=== PATIENT | female | born 1955 | race Caucasian/White ===

== ENCOUNTER 2016-10-16 17:32 | Inpatient (IN) | payer OTHER ==
[~2016-10-16] VITALS: Ht 165.1 cm; Wt 60.6 kg
[2016-10-16 17:42] VITALS: BP 135/79; PULSE 121; RESP 18; O2SAT 98
[2016-10-16 19:16] LABS: Mean Corpuscular Hemoglobin 36.4 pg (27.0-35.0); Mean Corpuscular Volume 110.5 fL (81-100); Platelet Count 151 bil/L (150-400)
--- NOTE | 2016-10-16 19:29 | ED.REPORT ---
HPI-General Illness Date of Service Oct 16, 2016 ED Provider: Rob Cohn MD 61 year old female with hx of breast cancer s/p mastectomy with post surgical RUE lymphedema who presents to the ED due to abnormal labs. Two weeks ago the patient was seen at urgent care and was diagnosed with a sinus infection. She was started on antibiotics and has had progressively worsening SOB since. Pt was seen at urgent care today c/o multiple vague complaints including fatigue and SOB. Lab studies included D-dimer and BNP which were markedly elevated. Called at home and told to go to ER. She also complain of chest tightness with deep inspiration and calf edema. Additionally, she complains of intermittent purple discoloration of fingers and toes, not associated with cold weather. Pt recently started a job in a [employer], which reportedly is harder labor then her previous job, and had a 20 pound weight loss. Pt denies fever, chills, trauma, surgery, immobilization, estrogen replacement or recent malignancy. Nursing Notes Stated Complaint: CHEST PAIN Chief Complaint: Respiratory Distress Nursing Notes Reviewed: Yes Allergies: Coded Allergies: No Known Drug Allergies (Verified Allergy, Unknown, 10/16/16) General Time Seen by MD: 18:53 Chief Complaint Breathing problem Hx Obtained From: Patient, Other family... Sudden in Onset?: No Onset Occurred: More than a week ago... Symptom Duration: Since onset Severity: Current: No pain currently Associated with: Reports: Shortness of breath, Denies: Fever Pertinent Negative: Relieved by nothing Recent Healthcare: Recent doctor visit Past Medical History Past Medical History Breast cancer s/p mastectomy with post-surgical chronic RUE lymphedema, in remission. Past Surgical History Mastectomy Smoking History Never Smoker Social History Alcohol Use: Denies alcohol use Other Social History: Good social support Ambulatory Status Independent Review of Systems Full Review of Systems Constitutional: Reports: Fatigue, Recent wt loss, Denies: Chills, Fever Respiratory: Reports: Shortness of breath Cardiovascular: Reports: Chest pain, Edema GI: Denies: Diarrhea, Vomiting Complete sys rev & neg: except as marked. Physical Exam Vital Signs Vital Signs Date Time Temp Pulse Resp B/P Pulse Ox O2 Delivery O2 Flow Rate FiO2 10/16/16 22:18 111 17 132/71 94 Room Air 10/16/16 19:31 112 18 117/66 97 Room Air 10/16/16 17:42 37.5 121 18 135/79 98 Room Air Initial VS: Reviewed ENT: Mucous membranes moist, Conjunctiva normal, No scleral icterus Neck: Supple, Non-tender, Full range of motion General/Constitutional: Awake, Alert, Cooperative Head / Eyes: Atraumatic, Normocephalic, PERRL Mastecomy R Cardiovascular: Heart sounds NL, No gallop, No murmurs, No rubs, Cap refill not delayed, Peripheral circulation NL Heart Rate / Rhythm: Positive: Tachycardia Abdomen: Soft, Non-tender, No distention Upper Extremities Upper Extremity / MS: Neurologic intact, Vascular intact Fingertips warm, well perfused, pink, with good cap refill bilat. RUE lymphedema at baseline Lower Extremity / Pelvis / MS: Neurologic intact, Vascular intact Slightly mottled appearing feet. Good DP pulses, no lateralizing calf swelling, no palpable chords. Trace edema bilat midway up to knees. Skin: Warm, Dry Neurologic: Oriented X3, Speech NL, No motor deficits Psychiatric: Affect NL, Mood NL, Cognitive function NL Interpretation & Diagnostics Lab Results Interpretation Result Diagram: 10/16/16 19010/16/16 190 Test 10/16/16 19:05 White Blood Count 1.8th/mm3 (3.8-10.1) Red Blood Count 2.75mil/mm3 (3.90-5.20) Hemoglobin 10.0g/dL (12.0-15.6) Hematocrit 30.4% (35.0-46.0) Mean Corpuscular Volume 110.5fL (81-100) Mean Corpuscular Hemoglobin 36.4pg (27.0-35.0) Mean Corpuscular Hemoglobin Concent 32.9% (32.0-37.0) Red Cell Distribution Width 14.4% (12.3-15.4) Platelet Count 151bil/L (150-400) Neutrophils (%) (Auto) 71% (40-74) Lymphocytes (%) (Auto) 25% (14-46) Monocytes (%) (Auto) 4% (4-12) Eosinophils (%) (Auto) 0% (0-5) Basophils (%) (Auto) 0% (0-3) Reticulocyte Count,Calculated 3.3% (0.6-2.6) Prothrombin Time 12.0sec (8.1-12.5) Prothromb Time International Ratio 1.12ratio Sodium Level 134mEq/L (134-144) Potassium Level 4.2mEq/L (3.5-5.2) Chloride Level 96mEq/L (97-108) Carbon Dioxide Level 20mmol/L (18-29) Blood Urea Nitrogen 15mg/dL (8-27) Creatinine 0.76mg/dL (0.57-1.00) Estimat Glomerular Filtration Rate 110mL/min (>59) Glucose Level 91mg/dL (60-99) Calcium Level 9.3mg/dL (8.5-10.1) Magnesium Level 1.8mg/dL (1.6-2.6) Total Bilirubin 0.7mg/dL (0.0-1.2) Aspartate Amino Transf (AST/SGOT) 203U/L (0-50) Alanine Aminotransferase (ALT/SGPT) 143U/L (0-32) Alkaline Phosphatase 115U/L (25-165) Troponin T < 0.010ug/L (0.0-0.011) Pro-B-Type Natriuretic Peptide 686.2pg/mL (0-287) Total Protein 6.2g/dL (6.4-8.4) Albumin 2.7g/dL (3.4-5.0) General Lab Results Interp 1: Labs reviewed ECG Interpretation ECG Interpretation: No ST segment changes, no T wave abnormalities. No prior for comparison. Time: 18:58 Interpreted by: ED physician Normal ECG Interpretation: Normal axis, Normal intervals Rhythm / Conduction: Tachycardia (rate of 115) CT Head Interpretation IMPRESSION: 1. Lytic lesions in the calvarium consistent with osseous metastatic disease. 2. No definite intracranial hemorrhage, mass or mass effect. If there is persistent clinical suspicion for intracranial metastatic disease, recommend further evaluation with a contrast enhanced brain MRI. Dictated by: Michael Garnica M.D. on 10/16/2016 at 21:38 Study: Head CT no contrast Interpretation / Wet Read by: Interpret - Radiologist CT Chest Interpretation IMPRESSION: 1. Multiple bilateral pulmonary emboli involving lobar pulmonary arteries in the right upper, middle, and lower lobes as well as the left lower lobe with extension into segmental and subsegmental branches. No definite evidence of right heart strain. 2. Findings consistent with diffuse metastatic disease including mediastinal lymphadenopathy, multiple hepatic mass lesions, splenic mass, mesenteric lymphadenopathy, and sclerotic bone lesions. 3. Compression fractures of T7 and T10 vertebral bodies as described without associated spinal canal narrowing. The fractures are likely pathologic secondary to metastatic disease. 4. Small amount of ascites within the visualized abdomen. Findings discussed with Dr. Cohn on 10/16/16 at 8:55 PM. Dictated by: Michael Garnica M.D. on 10/16/2016 at 21:05 Study type: CT pulm angiogram Interpretation / Wet Read by: Interpret - Radiologist, Discussed w radiologist Re-Eval/Medical Decision Med Decision/Clinical Course In summary, the patient is a 61-year-old female with remote history of right breast cancer status post mastectomy who presents to the emergency department with several weeks of gradually worsening shortness of breath and fatigue. She was apparently seen previously in urgent care at which time d-dimer and BNP were ordered. These tests resulted markedly elevated and she was called at home today and told to come to the emergency department. Upon arrival she is tachycardic in the 120s and tachypnea. She appears cachectic and generally well-appearing though she is speaking in full sentences. She is accompanied by family who report that with any exertion that she develops cyanotic appearance of her hands, feet and lips. ECG sinus tachy with rate 115, otherwise normal. CT chest angio: IMPRESSION: 1. Multiple bilateral pulmonary emboli involving lobar pulmonary arteries in the right upper, middle, and lower lobes as well as the left lower lobe with extension into segmental and subsegmental branches. No definite evidence of right heart strain. 2. Findings consistent with diffuse metastatic disease including mediastinal lymphadenopathy, multiple hepatic mass lesions, splenic mass, mesenteric lymphadenopathy, and sclerotic bone lesions. 3. Compression fractures of T7 and T10 vertebral bodies as described without associated spinal canal narrowing. The fractures are likely pathologic secondary to metastatic disease. 4. Small amount of ascites within the visualized abdomen. CT head: 1. Lytic lesions in the calvarium consistent with osseous metastatic disease. 2. No definite intracranial hemorrhage, mass or mass effect. If there is persistent clinical suspicion for intracranial metastatic disease, recommend further evaluation with a contrast enhanced brain MRI. Laboratory studies notable as below: Pediazole 1.8 Hematocrit 30.4 Troponin negative Elevated transaminases BNP 686 At this time, I feel that the patient requires admission to the ICU and catheterization for significant bilateral pulmonary emboli. The patient is not hemodynamically unstable and I do not feel that TPA is immediately indicated. Moreover the patient is at very high risk for bleeding complications given her extensive metastatic disease. Prior to initiating heparinization I obtained head CT did not demonstrate any evidence of intracranial mass lesion or bleeding. I discussed heparinization with Rod Carrero neurosurgeon at [facility] who felt that this was an appropriate course of action the patient's risk for acute cranial hemorrhage is relatively low. I discussed risk of bleeding with the patient who wished to proceed with heparinization after reviewing the risks and benefits. Low molecular weight heparin was initiated. The patient was admitted to the ICU for further management. Time of Eval: 21:02 Re-Evaluation/Progress Note: Pt updated of imaging and plan for admission. Pt understands and agrees with plan. Time of Eval: 22:35 Re-Evaluation/Progress Note: Pt remains tachycardic, updated of plan to start Lovenox. She understands and agrees with plan. All questions addressed. Consultation #1: Referral / Consult Name: Vinh Jones MD Consulted With: Hospitalist Call Returned at: 21:46 Note: Would like consult with neurosurgeon. Consultation #2: Call Returned at: 10:23 Note: Discussed case with Dr. Rod Johnson, neurosurgery, from [facility]. He agrees with plan for Heparin. Consultation #3: Referral / Consult Name: Vinh Jones MD Consulted With: Hospitalist Call Returned at: 10:32 Composition Roll Maker And Cutter: Will see patient, Agrees with eval, Agrees with plan, Accepts admit Note: Would like Lovenox. Counseled Regarding: Diagnosis, Lab results, Need for admission Discharge & Departure Primary Impression: Pancytopenia Additional Impressions: Pulmonary embolism Pulmonary embolism type: other Chronicity: acute Acute cor pulmonale presence: without acute cor pulmonale Qualified Code: I26.99 - Other pulmonary embolism without acute cor pulmonale Metastatic cancer Hypoxia Leukopenia Leukopenia type: unspecified Qualified Code: D72.819 - Decreased white blood cell count, unspecified Elevated transaminase level Tachycardia Dyspnea Dyspnea type: unspecified Qualified Code: R06.00 - Dyspnea, unspecified Anemia Anemia type: unspecified type Qualified Code: D64.9 - Anemia, unspecified Disposition: ADMITTED TO HOSPITAL Discharge Condition All VS Reviewed: Yes Referrals: Fani Flanagan (PCP) Crit Care Except Billable Proc Time Spent: 135-164 minutes Services Performed: Patient management by me, Time spent at bedside, Reviewing test results, Reviewing imaging, Discussing patient care, Documentation in record, Time with fam/surrogate Scribe Attestation Portions of this note were transcribed by Sherita Ruiz. I, (Dr. Cohn) personally performed the history, physical exam and medical decision-making; I reviewed and confirmed the accuracy of the information in the transcribed note. Signed by: Sherita Ruiz. 10/16/2016, [id number] copies to: Fani Flanagan Beck O MD Oct 16, 2016 19:29 Sherita Ruiz Oct 16, 2016 19:34
[2016-10-16 19:31] VITALS: BP 117/66; PULSE 112; RESP 18; O2SAT 97
[2016-10-16 19:39] LABS: INR 1.12 ratio
[2016-10-16 19:42] LABS: BASOPHILS % (AUTO) 0 % (0-3); EOSINOPHILS % (AUTO) 0 % (0-5); MONOCYTES % (AUTO) 4 % (4-12); NEUTROPHILS % (AUTO) 71 % (40-74)
[2016-10-16 19:49] LABS: TROPONIN T < 0.010 ug/L (0.0-0.011)
[2016-10-16 19:57] LABS: Magnesium 1.8 mg/dL (1.6-2.6)
--- NOTE | 2016-10-16 21:07 | DRSVH ---
PROCEDURE: CT ANGIO CHEST PULMONARY EMBOLISM ([id number]) INDICATIONS: Chest pain and elevated d-dimer. TECHNIQUE: After the administration of intravenous contrast, 2 mm thick sections acquired from the pulmonary api justine to the posterior costophrenic angles. 3-dimensional maximum intensity projection (MIP) coronal a nd sagittal reformats were then acquired through the thorax. For radiation dose reduction, the follo wing was used: automated exposure control, adjustment of mA and/or kV according to patient size. COMPARISON: [facility], CT, CT ABD PELVIS W&WO CON IVP, 10/20/2015, 15:02. FINDINGS: Image quality: Excellent. 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 There is extension into segmental and subsegmental branches. The main pul monary artery is at the upper limits of normal in size. No evidence of leftward deviation of the int erventricular septum to suggest right heart strain. Lungs and pleura: There is scarring in the right apex suggestive of post radiation changes. There is minimal dependent atelectasis. No pleural effusions or pneumothorax. Central and peripheral airway s are patent. Mediastinum: Heart size is normal, without pericardial effusion. Thoracic aorta is normal in calibe r and enhancement. There multiple enlarged mediastinal lymph nodes including a subcarinal node measu ring up to 1.4 cm in short axis. Esophagus is normal in caliber, without hiatal hernia. Bones and chest wall: There are scattered sclerotic lesions within the thoracic spine consistent wit h metastatic disease including within the T7 vertebral body where there is an associated anterior com pression fracture with approximately 45% loss of height. At the T10 level, there is also a mild supe rior endplate compression fracture with approximately 25% loss of height. No retropulsed fragments i n the spinal canal or associated high-grade spinal canal narrowing. Thyroid gland is partially visua lized. No axillary or supraclavicular adenopathy. There are multiple surgical clips in the right ax illa. There are postsurgical changes status post right mastectomy. Abdomen: Visualized upper abdomen demonstrates heterogeneous appearance of the liver with numerous c onfluent mass lesions consistent with metastatic disease. These appear to involve the majority of th e visualized liver. There is also a lobulated mass within the spleen measuring up to 6.4 x 4.2 cm in transverse dimension. There is confluent mesenteric lymphadenopathy within the visualized upper abd omen. These obscure the left adrenal gland. There is ascites with a small amount of perihepatic flu id in the visualized abdomen. IMPRESSION: 1. Multiple bilateral pulmonary emboli involving lobar pulmonary arteries in the right upper, middle , and lower lobes as well as the left lower lobe with extension into segmental and subsegmental branc hes. No definite evidence of right heart strain. 2. Findings consistent with diffuse metastatic disease including mediastinal lymphadenopathy, multip le hepatic mass lesions, splenic mass, mesenteric lymphadenopathy, and sclerotic bone lesions. 3. Compression fractures of T7 and T10 vertebral bodies as described without associated spinal canal narrowing. The fractures are likely pathologic secondary to metastatic disease. 4. Small amount of ascites within the visualized abdomen. Findings discussed with Dr. Cohn on 10/16/16 at 8:55 PM. Dictated by: Michael Garnica M.D. on 10/16/2016 at 21:05 Approved by: Michael Garnica M.D. on 10/16/2016 at 21:05
--- NOTE | 2016-10-16 21:40 | DRSVH ---
PROCEDURE: CT BRAIN WITHOUT CONTRAST ([id number]) INDICATIONS: History of pulmonary embolism and metastatic disease on chest CT. Rule out intracranial mass. TECHNIQUE: Noncontrast 4.5 mm thick angled axial sections acquired from the foramen magnum to the vertex, with c oronal reformats. COMPARISON: None. FINDINGS: Image quality: Excellent. CSF spaces: Basal cisterns are patent. No extra-axial fluid collections. There is mild cerebral vo lume loss with prominence of the ventricles and sulci. Brain: No definite intracranial hemorrhage. No mass effect. Owusu-white matter interface is preserv ed. There is mild hyperattenuation of the vessels secondary to recent intravenous contrast from ches t CT. Skull and face: There are multiple lytic lesions demonstrated within the calvarium consistent with me tastatic disease. These include a right frontal bone lytic irregular lesion measuring up to 1.9 cm. Sinuses: Visualized sinuses and mastoids are clear. IMPRESSION: 1. Lytic lesions in the calvarium consistent with osseous metastatic disease. 2. No definite intracranial hemorrhage, mass or mass effect. If there is persistent clinical suspic ion for intracranial metastatic disease, recommend further evaluation with a contrast enhanced brain MRI. Dictated by: Michael Garnica M.D. on 10/16/2016 at 21:38 Approved by: Michael Garnica M.D. on 10/16/2016 at 21:38
[2016-10-16 22:18] VITALS: BP 132/71; PULSE 111; RESP 17; O2SAT 94
[2016-10-16] MEDS ORDERED: Polyethylene Glycol (PEG) 17 Gm Powder PO PRN (23:05)
[2016-10-16] MEDS ORDERED: Alum-Mag Hydrox-Simeth 30 mL Suspension PO PRN (23:05)
[2016-10-17] VITALS (8 sets, daily range): BP systolic 123–137; BP diastolic 67–91; PULSE 94–111; RESP 14–18; O2SAT 94–99
[2016-10-17] MEDS: 0.9% Sodium Chloride 1,000 ML IV SCH ×3 (00:37→19:05)
[2016-10-17 01:22] LABS: Unsaturated Iron Binding 167.6 ug/dL
[2016-10-17] MEDS ORDERED: FLUO10CA30 PO (01:47)
[2016-10-17] MEDS ORDERED: AMIT10TA6 PO (01:47)
--- NOTE | 2016-10-17 02:36 | PCM.HPMED ---
Subjective Date of Service Oct 16, 2016 Primary Provider: Admitting Physician: Primary Care Physician: Fani Flanagan Attending Physician: Chief Complaint: Elevated D dimer with respiratory symptoms History of Present Illness: Sugar Thompson is a 61 year old female with History of breast cancer s/p mastectomy with post surgical RUE lymphedema who presents to [facility] Emergency department due to respiratory symptoms with elevated D dimer at Urgent Care clinic Two weeks ago the patient was seen at urgent care and was diagnosed with a sinus infection. She was started on antibiotics (Augmentin) and has had progressively worsening shortness of breathe since. Exacerbated with exertion and lifting heavy stuff. Pt was seen at urgent care today c/o multiple vague complaints including fatigue and dyspnea. Lab studies included D-dimer and BNP which were markedly elevated. Called at home and told to go to ER. She also complain of chest tightness with deep inspiration and calf edema. Additionally, she complains of intermittent purple discoloration of fingers and toes, not associated with cold weather. Pt recently started a job in a [employer], which reportedly is harder labor then her previous job, and had a 20 pound weight loss. Pt denies fever, chills, trauma, surgery, immobilization, estrogen replacement. Case discussed with Dr Cohn. Patient had CT confirming Pulmonary embolism. Imaging also confirmed metastatic cancer, new finding as the patient thought she was cancer free from her Breast Cancer. Review of Systems: Pertinent positives as noted in HPI. All other systems were reviewed and are negative Allergies Coded Allergies: No Known Drug Allergies (Verified Allergy, Unknown, 10/16/16) Home Medications From [facility], not yet confirmed Sugar Thompson [id number] 1955 10/16/2016 12:20 PM 10/04 amitriptyline 10 mg tablet take 1 tablet by oral route once before bedtime Augmentin 875 mg-125 mg tablet take 1 tab every 12 hours with food Fosamax take 1 tablet by oral route once a week in the morning, at least 30 min before first food, beverage, or medication of day Prozac 20 mg capsule take 1 tablet by oral route every day in the morning PMH Breast Cancer stage III-A with seven of eighteen nodes positive, complete chemotherapy with Adriamycin/Cytoxan Recent Sinusitis Surgical History Right modified radical mastectomy Family History NO history of clotting disease in family Social History Hx Alcohol Use: No Hx Substance Use: No Hx Tobacco Use: No Smoking Status: Never Smoker Living Arrangement: with Family Exam Vital Signs Vital Sign - Last Date Time Temp Pulse Resp B/P Pulse Ox O2 Delivery O2 Flow Rate FiO2 10/16/16 22:18 111 17 132/71 94 Room Air 10/16/16 17:42 37.5 Exam General: Alert, Oriented X3, Cooperative, No acute Distress Eyes: PERRLA, Scleral Anicteric Mouth: Mouth Normal, Mucous Membranes Moist/[place] Neck: Supple, no Thyromegaly, trachea central. Chest & Lungs: Clear to auscultation & percussion, No adventitious breath sounds, no crackles, no wheeze Cardiovascular: Normal S1, Normal S2, No Murmurs/Rubs/Gallops, Regular Rate/ Rhythm, (No JVD, no peripheral edema) Pulses: Radial (present and equal), Dorsalis Pedi (present and equal) Abdomen: Soft, Non-tender, Non-distended, Normoactive bowel tones. Musculoskeletal: Unremarkable. Normal range of motion, no swollen or erythematous joints Extremities: No edema, no cyanosis, no clubbing. Right arm bigger than left Skin: No rashes. Warm and dry, no erythematous areas Neurological: Grossly neurologically intact, Normal Speech, Sensation Intact Lymphatic: Lymph nodes Cervical and Axillary not palpable. Lab and Diagnostics Labs Laboratory Tests Test 10/16/16 19:05 White Blood Count 1.8th/mm3 (3.8-10.1) Red Blood Count 2.75mil/mm3 (3.90-5.20) Hemoglobin 10.0g/dL (12.0-15.6) Hematocrit 30.4% (35.0-46.0) Mean Corpuscular Volume 110.5fL (81-100) Mean Corpuscular Hemoglobin 36.4pg (27.0-35.0) Mean Corpuscular Hemoglobin Concent 32.9% (32.0-37.0) Red Cell Distribution Width 14.4% (12.3-15.4) Platelet Count 151bil/L (150-400) Neutrophils (%) (Auto) 71% (40-74) Lymphocytes (%) (Auto) 25% (14-46) Monocytes (%) (Auto) 4% (4-12) Eosinophils (%) (Auto) 0% (0-5) Basophils (%) (Auto) 0% (0-3) Prothrombin Time 12.0sec (8.1-12.5) Prothromb Time International Ratio 1.12ratio Sodium Level 134mEq/L (134-144) Potassium Level 4.2mEq/L (3.5-5.2) Chloride Level 96mEq/L (97-108) Carbon Dioxide Level 20mmol/L (18-29) Blood Urea Nitrogen 15mg/dL (8-27) Creatinine 0.76mg/dL (0.57-1.00) Estimat Glomerular Filtration Rate 110mL/min (>59) Glucose Level 91mg/dL (60-99) Calcium Level 9.3mg/dL (8.5-10.1) Magnesium Level 1.8mg/dL (1.6-2.6) Total Bilirubin 0.7mg/dL (0.0-1.2) Aspartate Amino Transf (AST/SGOT) 203U/L (0-50) Alanine Aminotransferase (ALT/SGPT) 143U/L (0-32) Alkaline Phosphatase 115U/L (25-165) Troponin T < 0.010ug/L (0.0-0.011) Pro-B-Type Natriuretic Peptide 686.2pg/mL (0-287) Total Protein 6.2g/dL (6.4-8.4) Albumin 2.7g/dL (3.4-5.0) Result Diagram: 10/16/16190410/16/161904 X-Rays, CTs and MRIs CT BRAIN WITHOUT CONTRAST 10/16/16 IMPRESSION: 1. Lytic lesions in the calvarium consistent with osseous metastatic disease. 2. No definite intracranial hemorrhage, mass or mass effect. If there is persistent clinical suspicion for intracranial metastatic disease, recommend further evaluation with a contrast enhanced brain MRI. Dictated by: Michael Garnica M.D. on 10/16/2016 at 21:38 Approved by: Michael Garnica M.D. on 10/16/2016 at 21:38 CT ANGIO CHEST PULMONARY EMBOLISM 10/16/16 IMPRESSION: 1. Multiple bilateral pulmonary emboli involving lobar pulmonary arteries in the right upper, middle, and lower lobes as well as the left lower lobe with extension into segmental and subsegmental branches. No definite evidence of right heart strain. 2. Findings consistent with diffuse metastatic disease including mediastinal lymphadenopathy, multiple hepatic mass lesions, splenic mass, mesenteric lymphadenopathy, and sclerotic bone lesions. 3. Compression fractures of T7 and T10 vertebral bodies as described without associated spinal canal narrowing. The fractures are likely pathologic secondary to metastatic disease. 4. Small amount of ascites within the visualized abdomen. Findings discussed with Dr. Cohn on 10/16/16 at 8:55 PM. Dictated by: Michael Garnica M.D. on 10/16/2016 at 21:05 Approved by: Michael Garnica M.D. on 10/16/2016 at 21:05 Assessment & Plan Sugar Thompson is a 61 year old female with History of breast cancer s/p mastectomy with post surgical RUE lymphedema who presents to [facility] Emergency department due to respiratory symptoms with elevated D dimer at Urgent Care clinic 1. Multiple bilateral pulmonary emboli involving lobar pulmonary arteries in the right upper, middle, and lower lobes as well as the left lower lobe with extension into segmental and subsegmental branches. Present on admission NO indications for TPA and at least no right heart strain on CT scan. Likely cause if related to Malignancy with no recent travels, surgeries or contraceptives. - Lovenox therapeutic (preferred anticoagulation for Pulmonary embolism with Malignancy) - Oncology consultation will be pursued in the morning - monitor closely for any bleeding complications from Lovenox 2. Macrocytic anemia with Leukopenia. Present on admission Likely acute issues but not confirmed with no prior labs for comparison - monitor closely for infections - monitor closely for bleeding - checking Iron studies as well as Vitamin B and Folate levels 3. Elevated transaminitis. Present on admission Likely due to metastatic disease - will order Hepatitis panel 4. Metastatic Breast Cancer. Present on admission Unfortunate that the patient has ongoing breast cancer - Oncology will be following and giving recommendation 5. Depression - continue Prozac - Acetaminophen as needed for mild pain/fever/headache - Bowel regimen as needed - Antiemetic as needed Patient admitted under inpatient status with expected length of stay > 2 midnights for severity of present symptoms, complexities of treatment plan and risk for adverse event . Resuscitation Status: CPR: Attempt Resuscitation Fuimaono,Vinh MD Oct 16, 2016 23:50
--- NOTE | 2016-10-17 04:19 | NUR ---
Admit Admitted from ER for SOB, Bilateral PE, RUE lymph edema rt tr mastectomy. denies pain, pt interview complete , conference w hospitalist , agreed to general diet until morning. A&O x3 , SHEIKH, using call light appropriately, have [place] padded brace on IV site , left AC to prevent occluding. Pt doesn't like needles, Room Air, NS @ 100. Q2 neuro checks, Tele SR- S-Tach/ Addendum: 10/17/16 at 0434 by MILAGRO CHOWDHURY RN Med Req completed as far as possible with Pt recollection, pt states she only takes 2 medications at home .
--- NOTE | 2016-10-17 09:19 | NUR ---
Social Work Note: Screen Note Data& Assessment: EMR reviewed. Sugar Deng is a 61 year old female admitted on 10/17/2016 for PE metastatic CA pancytopnia. Oncology consult ordered for today per H&P. Pt has [employer] out of state insurance coverage and sees Fani PARISI for primary care. Pt lives in [place] with her family and is independent at baseline. Pt is currently SBA in her room. SW to continue to follow for discharge planning needs. Plan: Anticipated discharge home via POV when medically ready. SW to continue to follow for discharge planning needs. HARISH Barker
[2016-10-17] MEDS ORDERED: 0.9% Sodium Chloride 1,000 ML IV ONE (13:45)
--- NOTE | 2016-10-17 16:27 | DRSVH ---
PROCEDURE: CT ABDOMEN AND PELVIS WITH CONTRAST ([id number]) INDICATIONS: find primary CA, best site for Bx TECHNIQUE: After the administration of oral and intravenous contrast, 5 mm thick sections acquired from the diap hragms to the symphysis. 5 mm thick coronal and sagittal reformats were performed. For radiation do se reduction, the following was used: automated exposure control, adjustment of mA and/or kV accordi ng to patient size. COMPARISON: [facility], CT, CT ANGIO CHEST PE, 10/16/2016, 20:18. [facility] , CT, CT ABD PELVIS W&WO CON IVP, 10/20/2015, 15:02. FINDINGS: Image quality: Excellent. ABDOMEN: Lung bases: Lung bases are clear. Heart size is normal. Solid organs: Liver is enlarged, measuring 20.7 cm craniocaudal. Hepatic contour is nodular, indicati ng cirrhosis. There is a severe degree of multifocal patchy low density within the right and left hep atic lobes, as seen by recent CT angiography of the chest examination. There appears to be preservati on of normal vascular architecture within portions of the ill-defined hepatic hypodensity, suggestive of fatty infiltration or infarction. There is enlargement of the spleen, which measures 14.7 cm cran iocaudal. There is a focal wedge-shaped low-density focus within the posterior or medial spleen measu ring 62 mm. Gallbladder wall is thickened, and there are multiple calculi within its lumen.. Biliary system is non-dilated. Pancreas enhances normally. No adrenal nodules. Kidneys are normal in size and enhancement, without hydronephrosis. Peritoneum and bowel: Stomach, small bowel, and colon loops are normal in caliber and wall thickness . No pneumoperitoneum. There is a small amount of ascites. Nodes and vessels: Mildly prominent retroperitoneal lymph nodes are present, which are increased in p rominence. The largest of these is in the left anterior preaortic location and 12 mm short axis. Aort a is within normal limits. There is severe narrowing of the intrahepatic IVC. Recanalized umbilical v ein is present. Miscellaneous: No ventral hernias. PELVIS: Genitourinary: Bladder wall thickness is normal. Miscellaneous: No inguinal hernias or adenopathy. Bones: Multiple ill-defined lucencies within the thoracolumbar spine, and bilateral posterior leg win gs are present, as before. There is a new mild L3 compression fracture. There is increased lucency in volving the L3 vertebral body, measuring roughly 22 mm. Mild chronic T10 compression fracture. Modera te curvature of the spine at the thoracolumbar junction. Slight increase in 9 mm diameter sclerotic d ensity within the left posterior acetabulum. IMPRESSION: 1. Cirrhosis, and portal hypertension, associated with splenomegaly, and small amount of ascites. 2. Moderate sized splenic infarct. 3. The multifocal ill-defined hepatic hypodense lesions are not definitively malignant, and may repre sent an atypical appearance of fatty infiltration, and/or hepatic infarcts. Liver protocol MRI with a nd without intravenous contrast may be helpful for further assessment. 4. Cholelithiasis. Thickened gallbladder wall is present, which may indicate cholecystitis versus seq uelae secondary to cirrhosis/portal hypertension. 5. Multifocal lucencies within the lumbar sacral spine and pelvis, and left posterior acetabular scle rotic density. New, mild L3 wedging associated with L3 lucent lesion. Findings could indicate bony me tastatic disease; whole-body bone scan recommended for further assessment. 6. Increased, mild retroperitoneal lymph node enlargement; findings could be reactive (e.g., secondar y to cirrhosis), or secondary to early metastatic disease; followup CT imaging is recommended in 1-3 months, as clinically warranted. 7. Findings and recommendations discussed with Dr. Pemberton on 10.17.16 at 1615 hrs. Dictated by: Manuel Pate M.D. on 10/17/2016 at 16:25 Approved by: Manuel Pate M.D. on 10/17/2016 at 16:25
--- NOTE | 2016-10-17 18:41 | PCM.PNMED ---
Subjective Date of Service Oct 17, 2016 Subjective 59-year-old woman with remote history of breast cancer and incomplete follow-up presents with pulmonary embolism and various radiologic lesions. Her presenting symptom was some chronic weakness with some dyspnea on exertion. Initially treated for sinusitis with 2 courses of antibiotics. A d-dimer was checked and she was referred to the emergency department. She states that she continues to feel weak, but no respiratory complaint. She was treated for sinusitis but has no focal sinus complaints. The healing lip ulcer is not painful. Denies focal bone pain. Exam Vital Signs Vital Sign - Last Date Time Temp Pulse Resp B/P Pulse Ox O2 Delivery O2 Flow Rate FiO2 10/17/16 16:41 37.0 100 18 137/88 99 Room Air Intake and Output 10/16/16 10/16/16 10/17/16 Cumulative From/Thru 14:59 22:59 06:59 10/16/16 17:42 - 10/17/16 06:06 Intake Total 715 ml 715 ml Output Total 500 ml 500 ml Balance 215 ml 215 ml Intake Oral 200 ml 200 ml IV Total 515 ml 515 ml Output Urine Total 500 ml 500 ml # Voids 1 1 Exam General: Generally healthy-appearing woman no acute distress HEENT: sclerae anicteric, oral mucosa moist, dry scab of right upper lip; no oral aphthous ulcers, no vesicles Neck: no JVD Chest: clear to auscultation Cardiac: S1S2, no murmur Abdomen: BS normal, non-tender, no hepatomegaly Extremities: No asymmetric swelling or edema Neuro: A&O, cranial nerves symmetric, motor strength 5/5, coordination normal IVs and Medications Medications Reviewed: Medications were reviewed in detail Lab and Diagnostics Result Diagram: 10/16/16190410/16/161904 X-Rays, CTs and MRIs CT BRAIN WITHOUT CONTRAST 10/16/16 IMPRESSION: 1. Lytic lesions in the calvarium consistent with osseous metastatic disease. 2. No definite intracranial hemorrhage, mass or mass effect. If there is persistent clinical suspicion for intracranial metastatic disease, recommend further evaluation with a contrast enhanced brain MRI. Dictated by: Michael Garnica M.D. on 10/16/2016 at 21:38 Approved by: Michael Garnica M.D. on 10/16/2016 at 21:38 CT ANGIO CHEST PULMONARY EMBOLISM 10/16/16 IMPRESSION: 1. Multiple bilateral pulmonary emboli involving lobar pulmonary arteries in the right upper, middle, and lower lobes as well as the left lower lobe with extension into segmental and subsegmental branches. No definite evidence of right heart strain. 2. Findings consistent with diffuse metastatic disease including mediastinal lymphadenopathy, multiple hepatic mass lesions, splenic mass, mesenteric lymphadenopathy, and sclerotic bone lesions. 3. Compression fractures of T7 and T10 vertebral bodies as described without associated spinal canal narrowing. The fractures are likely pathologic secondary to metastatic disease. 4. Small amount of ascites within the visualized abdomen. Findings discussed with Dr. Cohn on 10/16/16 at 8:55 PM. Dictated by: Michael Garnica M.D. on 10/16/2016 at 21:05 Approved by: Michael Garnica M.D. on 10/16/2016 at 21:05 PROCEDURE: CT ABDOMEN AND PELVIS WITH CONTRAST ([id number]) FINDINGS: Image quality: Excellent. ABDOMEN: Lung bases: Lung bases are clear. Heart size is normal. Solid organs: Liver is enlarged, measuring 20.7 cm craniocaudal. Hepatic contour is nodular, indicating cirrhosis. There is a severe degree of multifocal patchy low density within the right and left hepatic lobes, as seen by recent CT angiography of the chest examination. There appears to be preservation of normal vascular architecture within portions of the ill-defined hepatic hypodensity, suggestive of fatty infiltration or infarction. There is enlargement of the spleen, which measures 14.7 cm craniocaudal. There is a focal wedge-shaped low-density focus within the posterior or medial spleen measuring 62 mm. Gallbladder wall is thickened, and there are multiple calculi within its lumen.. Biliary system is non-dilated. Pancreas enhances normally. No adrenal nodules. Kidneys are normal in size and enhancement, without hydronephrosis. Peritoneum and bowel: Stomach, small bowel, and colon loops are normal in caliber and wall thickness. No pneumoperitoneum. There is a small amount of ascites. Nodes and vessels: Mildly prominent retroperitoneal lymph nodes are present, which are increased in prominence. The largest of these is in the left anterior preaortic location and 12 mm short axis. Aorta is within normal limits. There is severe narrowing of the intrahepatic IVC. Recanalized umbilical vein is present. Bones: Multiple ill-defined lucencies within the thoracolumbar spine, and bilateral posterior leg wings are present, as before. There is a new mild L3 compression fracture. There is increased lucency involving the L3 vertebral body , measuring roughly 22 mm. Mild chronic T10 compression fracture. Moderate curvature of the spine at the thoracolumbar junction. Slight increase in 9 mm diameter sclerotic density within the left posterior acetabulum. IMPRESSION: 1. Cirrhosis, and portal hypertension, associated with splenomegaly, and small amount of ascites. 2. Moderate sized splenic infarct. 3. The multifocal ill-defined hepatic hypodense lesions are not definitively malignant, and may represent an atypical appearance of fatty infiltration, and/ or hepatic infarcts. Liver protocol MRI with and without intravenous contrast may be helpful for further assessment. 4. Cholelithiasis. Thickened gallbladder wall is present, which may indicate cholecystitis versus sequelae secondary to cirrhosis/portal hypertension. 5. Multifocal lucencies within the lumbar sacral spine and pelvis, and left posterior acetabular sclerotic density. New, mild L3 wedging associated with L3 lucent lesion. Findings could indicate bony metastatic disease; whole-body bone scan recommended for further assessment. 6. Increased, mild retroperitoneal lymph node enlargement; findings could be reactive (e.g., secondary to cirrhosis), or secondary to early metastatic disease; followup CT imaging is recommended in 1-3 months, as clinically warranted. 7. Findings and recommendations discussed with Dr. Pemberton on 10.17.16 at 1615 hrs. Dictated by: Manuel Pate M.D. on 10/17/2016 at 16:25 . Assessment & Plan 61-year-old woman with history of breast cancer 12 years ago prevent presents with weakness and dyspnea on exertion noted to have pulmonary embolism. #. Multiple bilateral pulmonary emboli involving lobar pulmonary arteries in the right upper, middle, and lower lobes as well as the left lower lobe with extension into segmental and subsegmental branches. Present on admission. NO indications for TPA and at least no right heart strain on CT scan. Likely cause is related to Malignancy, with no recent travels, surgeries or contraceptives. No family history of thrombophilia. - Lovenox therapeutic (preferred anticoagulation for Pulmonary embolism with Malignancy) - Hematology/oncology consultation - We will continue therapeutic Lovenox at present and await plan for CT guided biopsy, if necessary, before planning anticoagulation interruption #. Metastatic Breast Cancer. Present on admission. Based on findings in chest CT angiogram, patient was informed of likely metastatic disease to liver spleen bones and lymph nodes. Subsequent abdominal and imaging cast doubt on neoplastic disease of liver and spleen. Bone lesions seem to be a progression of prior findings observed on CT scan in 10/2015. Compression fracture of spine may be osteoporosis, for which the patient has a prior diagnosis. Adenopathy is of uncertain cause. -Oncology consultation, Dr. Leal #. Macrocytic anemia with Leukopenia. Present on admission. Consider alcohol bone marrow toxicity versus myelocystic disease. - checking Iron studies as well as Vitamin B and Folate levels - Hematology oncology consult #. Probable cirrhosis. Based on hepatic imaging. History is positive for regular consumption of 2 alcohol tracts per day per patient. No prior clinical diagnosis diagnosis. - Follow CMP periodically - Discussed alcohol cessation with patient - Plan referral for appropriate hepatic follow-up, depending on overall health picture #. Elevated transaminitis. AST 203, ALT 143 on admission. Hepatic imaging suggests cirrhosis but possibly also nodular disease. - will order Hepatitis panel - To consider further focused hepatic imaging #. Abnormal thyroid function tests. Hypothyroidism versus euthyroid sick syndrome. Unclear whether this is symptomatic, in setting of multiple other medical issues. - Repeat tests with reverse T4 - Consider treatment as indicated Resolved, stable and/or chronic problems: #. Osteoporosis. - Plan to continue her chronic Fosamax therapy #. Depression - continue Prozac - Acetaminophen as needed for mild pain/fever/headache - Bowel regimen as needed - Antiemetic as needed Patient admitted under inpatient status with expected length of stay > 2 midnights for severity of present symptoms, complexities of treatment plan and risk for adverse event . VTE Prophylaxis: Sub-Q Enoxaparin Resuscitation Status: CPR: Attempt Resuscitation Time spent 45 minutes spent in patient assessment including counseling patient and family at bedside Salty Pemberton MD Oct 17, 2016 18:40
--- NOTE | 2016-10-17 18:43 | NUR ---
CT SCAN/ACTIVITY Patient given oral contrast for abdominal/pelvic CT, was taken to CT at 1430, returned at 1445. NS bolus of 500 mL administered before and after CT scan, as ordered by Dr. Leal. Telemetry was removed per orders from Dr. Pemberton. Patient has been ambulatory in room, steady gait noted. She has asked if she can be more mobile, possibly walk in hallway. RN cleared activity w/ Dr. Pemberton, and patient informed. Will continue to monitor vitals and encourage activity.
--- NOTE | 2016-10-17 19:02 | CCS CONS ---
[facility] [address] [place] [id number] MEDICAL ONCOLOGY NEW PATIENT REPORT PATIENT: MARVA CHOPRA : 1955 MR#: [id number] DATE: 10/17/2016 JOB ID: [id number] DATE: 10/17/2016 REQUESTING PHYSICIAN: The hospitalist team, Dr. Tomy Pemberton. PRIMARY CARE PHYSICIAN: ISAK Burrell. REASON FOR CONSULT: Large bilateral PE and CT angiogram suggestive of a possible metastatic process in the setting of prior history of node positive breast cancer in 2002. HISTORY OF PRESENT ILLNESS: The patient is a 61-year-old lady who has had very little contact to medical care lately. She also has not had any lab draws for years. She has been having some vague symptoms but did not pay much attention to them. She has worked at several drops at a [employer] in [place]. 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 She did lose about 20 pounds over the past six months that she attributed to more activity during her job in [employer]. She has presented with ongoing symptoms of weakness and respiratory symptoms to Urgent Care and then to emergency department and it was somewhat tachycardic had lab studies, including a D-dimer that was elevated through urgent care and underwent a CT angio of the chest last night, which showed multiple bilateral pulmonary emboli involving the lobar pulmonary arteries and several segments of right upper, middle and lower lobes on the right side as well as the left lower lobe with extension into the segmental branches. The CT had described also "diffuse metastatic disease" because of mediastinal lymphadenopathy and mass-like lesions in the upper portion of the abdomen that was included involving the liver and spleen as well as mesenteric adenopathy. Several sclerotic lesions in the bones were noted as well and a compression fracture of T7 and T10. The patient received the first dose of Lovenox last night at 1 mg/kg. Her prior history is significant in that she had a right-sided breast cancer in 2001. She was last seen by Oncology in [address] Giorgi Nguyen who has not been in practice for many years. She looking back on his notes I found from Dr. peralta she had high-risk node positive breast cancer on the right side and on the vent the estelle lindsey underwent a modified radical mastectomy and axillary lymph node dissection and had a stage IIIA disease with March 2018 axillary nodes positive. The tumor was ER/SD positive and HER-2 negative. She received adjuvant chemotherapy with Adriamycin and Cytoxan followed by Taxotere and followed by adjuvant chest wall/axillary radiation. She was started on hormonal therapy with tamoxifen but took that this only for a few months and discontinued this. She did not go for any oncologic followup if either. Looking back, current labs from 2002 she was already at that time Cytopenias with a white count of 2.1 with normal hemoglobin and platelets. REVIEW OF SYSTEMS: Interestingly, she denies any particular pain or any lumps or lesions that she has identified. She denies any neurological symptoms. No headaches and no functional loss. She denies any GI problems. No nausea, vomiting, or change in bowel habits. She has never had a colonoscopy. She has no abdominal pain. No lumps that she has noticed. No bone pain. PAST MEDICAL HISTORY: 1. The above-mentioned history of stage IIIA ER positive, HER-2 negative right-sided breast cancer in 2001. 2. History of recent sinusitis. No other recent surgeries. FAMILY HISTORY: She has not had any tendency of DVTs or embolic events in the family. She has one son who lives in [place]. and a sister in [place]. SOCIAL HISTORY: She lives by herself. Is single in [place]. The friend is with her in the room. 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 She denies any history of smoking and does not drink any alcohol. HOME MEDICATIONS: 1. Prozac. 2. Fosamax. 3. Amitriptyline. 4. She had taken some Augmentin for the sinusitis. LABS: Of October 16 showed normal electrolytes and creatinine. Liver enzymes were elevated with an AST of 203 and ALT of 143. Bilirubin normal, albumin low with 2.7. Iron profile was severely elevated with a ferritin of 11,000, but iron saturation normal with 38%. LDH is elevated with 511. CBC was significantly abnormal with a white count of 1.8 with an absolute neutrophil count of approximately 1400. Hemoglobin 10.0. MCV severely elevated with 110. Normal platelet count of 151. Even looking back to the lab of July 2003, she had an elevated MCV and a low white count of 2.1, although her hemoglobin at that time was normal with 13. IMAGING: CT angio of the chest was personally reviewed. PHYSICAL EXAMINATION: On exam, her blood pressure is 137/88, O2 sat 99% on room air. She is ambulatory in the room and appears in no distress. Lungs clear to auscultation. Heart regular. Abdomen is soft. She does have palpable hepatomegaly on palpation and it might be that her spleen is also enlarged. No palpable adenopathy in the axilla or neck. Right chest wall examination shows postmastectomy scar without any abnormalities. Left the chest wall and breast exam shows no abnormalities. Neurologically, she is grossly intact. ASSESSMENT AND PLAN: A 61-year-old the lady with prior history of stage IIIA right-sided, ER positive, HER-2 negative breast cancer with multiple nodes positive 14 years ago that was treated with mastectomy, adjuvant chemotherapy and radiation. She was seen by a Dr. Nguyen who left practice many years ago and she has not followed up with any oncologist. She also did not take any adjuvant hormonal therapy except for a few months of tamoxifen. She has not had any meaningful tests or evaluation. She says that she has not had any labs drawn in years. She tends to downplay the issues at hand and says that she has been feeling fine and has been attributing her not feeling too well to the recent sinusitis, but she was having some cyanosis of her fingers and had a significant multifocal PE on the CT angio of yesterday. The CT angio suggests the possibility of a malignant process since she had some mediastinal adenopathy and some sclerotic changes in the bone. No lung mass. There are also some mass-like abnormalities in the included portion of the upper liver. My primary concern would be the risk of recurrent metastatic breast cancer, but we have to keep the differential open for other possibilities. I explained that to her and we would need to obtain an adequate area for tissue diagnosis. This is currently slightly complicated obviously because of the acute PE and anticoagulation. In my review with Dr. Pate of Radiology he felt that in the chest there is no safe place to biopsy and suggested that we proceed with the CT of abdomen and pelvis that I had recommended to Dr. Pemberton of the hospitalist team as well to see whether there is any less risky place for biopsying the lesion in regard to risk of bleeding which would then require to halt anticoagulation which would be at this point not acceptable given the multifocal PE. Given the exposure to contrast yesterday, I suggested that she be treated with normal saline 500 cc over half an hour before and after the contrast of the abdominal CT to reduce the risk of contrast nephropathy. Interestingly, she has a macrocytic anemia with a hemoglobin of 10, an elevated MCV and a low white count of 1.8. [facility] also showed a low white count and elevated MCV, although at that time, not anemic. Platelets are normal. Workup has been sent off regarding B12, TSH and folic acid. I added also LDH, retic count and haptoglobin. In addition, a CA 27-29 and an alpha-fetoprotein. The case was discussed with Dr. Pemberton and we will follow on the abdominal CT results.
[2016-10-17] MEDS: Ondansetron 2 mg/mL 2 mL Inj IVPUSH PRN (20:19)
--- NOTE | 2016-10-17 21:02 | NUR ---
transferred to room 3008 pt transferred via wheelchair to room 3008, report given to Lito Camarillo RN, pt with some back pain and nausea gave zofran and tylenol prior to leaving with some relief, all pts belongings, chart and medications taken with her. pt not on tele or oxygen.
[2016-10-18] MEDS: 0.9% Sodium Chloride 1,000 ML IV SCH ×2 (03:43→15:05)
[2016-10-18 04:07] LABS: Hepatitis A Antibody IgM Negative (Negative); Hepatitis B Core Antibody IgM Negative (Negative)
[2016-10-18 05:29] VITALS: BP 142/83; PULSE 98; RESP 18; O2SAT 95
--- NOTE | 2016-10-18 05:41 | NUR ---
NOC activity Received pt from [facility] to room 3008. Pt denies chest pain, sob, n/v and abd discomfort, currently on RA tolerating well. Lovenox administered. IVF hanged and running. Hourly rounding done. Pt has slept most of the night.
[2016-10-18 06:13] LABS: CA27.29 8381.2 U/mL (0.0-38.6)
[2016-10-18 08:12] LABS: Vitamin B12 >1999 pg/mL (211-946)
[2016-10-18 09:09] LABS: Magnesium 1.8 mg/dL (1.6-2.6); Phosphorus 3.2 mg/dL (2.5-4.9)
[2016-10-18 09:29] LABS: Mean Corpuscular Hemoglobin 36.3 pg (27.0-35.0); Mean Corpuscular Volume 111.3 fL (81-100); Platelet Count 144 bil/L (150-400)
--- NOTE | 2016-10-18 09:34 | NUR ---
Off Unit: Patient transported to [facility] via wheelchair accompanied by transporter @ approx 0930.
[2016-10-18 09:51] LABS: INR 1.12 ratio
[2016-10-18 10:03] LABS: BASOPHILS % (AUTO) 0 % (0-3); EOSINOPHILS % (AUTO) 2 % (0-5); MONOCYTES % (AUTO) 10 % (4-12); NEUTROPHILS % (AUTO) 65 % (40-74)
[2016-10-18] MEDS ORDERED: Heparin 5,000 Unit/mL Inj IVPUSH PRN (11:35)
[2016-10-18 12:45] VITALS: BP 137/83; PULSE 88; RESP 16; O2SAT 98
--- NOTE | 2016-10-18 13:00 | NUR ---
Heparin P: enoxaparin was ordered due to PEs; however, the pt has a scheduled liver bx on 10/19/16 in the AM. I: The primary nurse notified the MD and an order of IV heparin was placed in gennaro of enoxaprin. E: Waiting on IV therapy, as patient has lymphedema on right arm.
[2016-10-18] MEDS: Heparin 25K Unit/500mL 0.45 NS 25,000 UNIT in IV Premix 1 EACH IV SCH (15:17)
--- NOTE | 2016-10-18 17:54 | NUR ---
Heparin Infusion: Patient unable to receive SQ Lovenox x24hrs due to US guided liver biopsy 10/19 am. notified. Heparin infusion DVT/PE protocol ordered. Discussed w/patient. Also discussed q6hr lab draw and need to guaiac stools. Baseline PTT obtained. 4000u Heparin bolus administered. Initial Heparin infusion started @ 18u/kg/hr (18.3mls/hr).
[2016-10-18 18:08] VITALS: BP 133/88; PULSE 93; RESP 17; O2SAT 97
[2016-10-18 22:01] VITALS: BP 141/85; PULSE 100; RESP 18; O2SAT 96
--- NOTE | 2016-10-18 22:10 | CCS NOTE ---
[facility] [address] [address] MEDICAL ONCOLOGY OFFICE NOTE PATIENT: MARVA CHOPRA : 1955 MR#: [id number] DATE: 10/17/2016 JOB ID: [id number] DATE: 10/18/2016 HISTORY OF PRESENT ILLNESS: The patient had a CT scan of the abdomen and pelvis yesterday afternoon with contrast. We discussed her imaging this morning at our Tumor Board with Dr. Juárez of Radiology present. The CT of the abdomen showed the nodularity of the surface of the liver suggesting that they might be cirrhosis and also associated splenomegaly and a small amount of ascites. The patient has no prior history of liver cirrhosis reported. There are areas of signal abnormality in the spleen that suggest a splenic infarct, fairly large in size. The right inferolateral portion of the liver shows also diffuse ill-defined hypodensity which is difficult to characterize, could be an infarct in the liver as well. It is somewhat atypical for metastatic disease. In the left hepatic lobe, however, there are some lesions that could be metastatic disease radiographically. There were several lucencies in the lumbar and sacral spine suggestive for possible bony metastases although not definitive. A few mildly enlarged retroperitoneal nodes that are also not definitive and are not easily accessible for biopsy. Meanwhile, the patient's tumor markers have returned to be severely elevated, particularly the breast cancer tumor marker CA 27-29 is on the order of 8300, CEA is also elevated with 3800. Liver transaminases are elevated at 280 range, but bilirubin and alk phos are normal, surprisingly. Other labs also show signs of hypothyroidism. In addition, there is evidence of possible hemolytic process with the elevated retic count, reduced haptoglobin but this appears mild and compensated as his bilirubin is normal. I spoke this morning with Dr. Christopher Pemberton regarding the discussion we had at our tumor board this morning about the radiographic findings. In context of the severely elevated tumor markers, still the most likely scenario would be recurrent metastatic breast cancer, however, tissue proof needs to be performed. Dr. Juárez of Radiology is willing to perform ultrasound-guided biopsies of the left hepatic lesion. In context of the infarcts noted in the spleen and possibly also in the liver, I recommended to obtain a Doppler ultrasound of the gloria hepatis and the splenic vein to rule out thrombosis of the splenic vein as well as hepatic vein or the portal vein. The patient has already received the Lovenox injection last night and therefore no biopsy will be performed today. Doppler ultrasound of the liver and a liver ultrasound in preparation of the left liver lesion biopsy should be performed today and I requested in my conversation with Dr. Pemberton who agreed to order that and the biopsy to be performed tomorrow. Lovenox dose tonight will need to be held for that purpose. I am out of the office on but will be following up and visiting the patient on Sunday. I am available by phone as needed.
--- NOTE | 2016-10-18 23:01 | PCM.PNMED ---
Subjective Date of Service Oct 18, 2016 Subjective Patient has no new complaints. She still has discoloration of her hands. She has dyspnea on exertion. Exam Vital Signs Vital Sign - Last Date Time Temp Pulse Resp B/P Pulse Ox O2 Delivery O2 Flow Rate FiO2 10/18/16 22:17 Supplement Oxygen 10/18/16 22:01 37.3 100 18 141/85 96 Intake and Output 10/17/16 10/17/16 10/18/16 Cumulative From/Thru 15:00 23:00 07:00 10/16/16 17:42 - 10/18/16 06:42 Intake Total 1865 ml 100 ml 2680 ml Output Total 1700 ml 3 ml 2203 ml Balance 165 ml 97 ml 477 ml Intake Oral 520 ml 100 ml 820 ml IV Total 1345 ml 1860 ml Output Urine Total 1700 ml 3 ml 2203 ml # Voids 1 Exam General: Patient is in no apparent distress. He is lying supine in bed with head elevated approximately 30-45. HEENT: Head is atraumatic normocephalic. Eyes: Pupils are equally round and reactive to light and accommodation. Extraocular muscles are intact. Sclera are white anicteric. Subconjunctival mucosa is pink. Ears and nose are unremarkable. Oropharynx: There is a large herpetic lesion just right of midline in the upper lip. There are no other mucosal lesions, there is no thrush, there is no pharyngitis. Neck: Is supple, there is no nodes or masses or tenderness. Chest: Is relatively clear to auscultation and percussion. There are no significant rales, rhonchi, wheezes or rubs. Heart: Rate rhythm is regular. There is no murmur rub or gallop. Abdomen: Good bowel sounds are present. Abdomen is soft, nontender, no organomegaly or masses were appreciated. Extremities: There is diffuse livido reticularis of the upper extremities bilaterally. Otherwise the extremities are symmetrical and well perfused. There is no edema, there is no cellulitis, no rash. Neurologic: There are no focal neurological deficits. Cranial nerves II through XII are intact. There are no sensory or motor deficits. Psychiatric: Patients mood is calm and shows no sign of agitation. Genital: Deferred Rectal: Deferred Lab and Diagnostics Result Diagram: 10/18/16 0801 10/18/16 0801 X-Rays, CTs and MRIs CT BRAIN WITHOUT CONTRAST 10/16/16 IMPRESSION: 1. Lytic lesions in the calvarium consistent with osseous metastatic disease. 2. No definite intracranial hemorrhage, mass or mass effect. If there is persistent clinical suspicion for intracranial metastatic disease, recommend further evaluation with a contrast enhanced brain MRI. Dictated by: Michael Garnica M.D. on 10/16/2016 at 21:38 Approved by: Michael Garnica M.D. on 10/16/2016 at 21:38 CT ANGIO CHEST PULMONARY EMBOLISM 10/16/16 IMPRESSION: 1. Multiple bilateral pulmonary emboli involving lobar pulmonary arteries in the right upper, middle, and lower lobes as well as the left lower lobe with extension into segmental and subsegmental branches. No definite evidence of right heart strain. 2. Findings consistent with diffuse metastatic disease including mediastinal lymphadenopathy, multiple hepatic mass lesions, splenic mass, mesenteric lymphadenopathy, and sclerotic bone lesions. 3. Compression fractures of T7 and T10 vertebral bodies as described without associated spinal canal narrowing. The fractures are likely pathologic secondary to metastatic disease. 4. Small amount of ascites within the visualized abdomen. Findings discussed with Dr. Cohn on 10/16/16 at 8:55 PM. Dictated by: Michael Garnica M.D. on 10/16/2016 at 21:05 Approved by: Michael Garnica M.D. on 10/16/2016 at 21:05 PROCEDURE: CT ABDOMEN AND PELVIS WITH CONTRAST ([id number]) FINDINGS: Image quality: Excellent. ABDOMEN: Lung bases: Lung bases are clear. Heart size is normal. Solid organs: Liver is enlarged, measuring 20.7 cm craniocaudal. Hepatic contour is nodular, indicating cirrhosis. There is a severe degree of multifocal patchy low density within the right and left hepatic lobes, as seen by recent CT angiography of the chest examination. There appears to be preservation of normal vascular architecture within portions of the ill-defined hepatic hypodensity, suggestive of fatty infiltration or infarction. There is enlargement of the spleen, which measures 14.7 cm craniocaudal. There is a focal wedge-shaped low-density focus within the posterior or medial spleen measuring 62 mm. Gallbladder wall is thickened, and there are multiple calculi within its lumen.. Biliary system is non-dilated. Pancreas enhances normally. No adrenal nodules. Kidneys are normal in size and enhancement, without hydronephrosis. Peritoneum and bowel: Stomach, small bowel, and colon loops are normal in caliber and wall thickness. No pneumoperitoneum. There is a small amount of ascites. Nodes and vessels: Mildly prominent retroperitoneal lymph nodes are present, which are increased in prominence. The largest of these is in the left anterior preaortic location and 12 mm short axis. Aorta is within normal limits. There is severe narrowing of the intrahepatic IVC. Recanalized umbilical vein is present. Bones: Multiple ill-defined lucencies within the thoracolumbar spine, and bilateral posterior leg wings are present, as before. There is a new mild L3 compression fracture. There is increased lucency involving the L3 vertebral body , measuring roughly 22 mm. Mild chronic T10 compression fracture. Moderate curvature of the spine at the thoracolumbar junction. Slight increase in 9 mm diameter sclerotic density within the left posterior acetabulum. IMPRESSION: 1. Cirrhosis, and portal hypertension, associated with splenomegaly, and small amount of ascites. 2. Moderate sized splenic infarct. 3. The multifocal ill-defined hepatic hypodense lesions are not definitively malignant, and may represent an atypical appearance of fatty infiltration, and/ or hepatic infarcts. Liver protocol MRI with and without intravenous contrast may be helpful for further assessment. 4. Cholelithiasis. Thickened gallbladder wall is present, which may indicate cholecystitis versus sequelae secondary to cirrhosis/portal hypertension. 5. Multifocal lucencies within the lumbar sacral spine and pelvis, and left posterior acetabular sclerotic density. New, mild L3 wedging associated with L3 lucent lesion. Findings could indicate bony metastatic disease; whole-body bone scan recommended for further assessment. 6. Increased, mild retroperitoneal lymph node enlargement; findings could be reactive (e.g., secondary to cirrhosis), or secondary to early metastatic disease; followup CT imaging is recommended in 1-3 months, as clinically warranted. 7. Findings and recommendations discussed with Dr. Pemberton on 10.17.16 at 1615 hrs. Dictated by: Manuel Pate M.D. on 10/17/2016 at 16:25 . Assessment & Plan Patient is a 61-year-old woman with history of breast cancer 12 years ago prevent presents with weakness and dyspnea on exertion noted to have pulmonary embolism. #. Multiple bilateral pulmonary emboli involving lobar pulmonary arteries in the right upper, middle, and lower lobes as well as the left lower lobe with extension into segmental and subsegmental branches. Present on admission. NO indications for TPA and at least no right heart strain on CT scan. Likely cause is related to Malignancy, with no recent travels, surgeries or contraceptives. No family history of thrombophilia. - Lovenox therapeutic (preferred anticoagulation for Pulmonary embolism with Malignancy). However due to plan for liver biopsy in a.m. patient was switched to an IV heparin drip. - Hematology/oncology consultation - Patient is scheduled for a ultrasound-guided liver biopsy in a.m. #. Metastatic Breast Cancer. Present on admission. Based on findings in chest CT angiogram, patient was informed of likely metastatic disease to liver spleen bones and lymph nodes. Subsequent abdominal and imaging cast doubt on neoplastic disease of liver and spleen. Bone lesions seem to be a progression of prior findings observed on CT scan in 10/2015. Compression fracture of spine may be osteoporosis, for which the patient has a prior diagnosis. Adenopathy is of uncertain cause. -Oncology consultation obtained with Dr. Leal and will follow his recommendations.: #. Macrocytic anemia with Leukopenia. Present on admission. Consider alcohol bone marrow toxicity versus myelocystic disease. - checking Iron studies as well as Vitamin B and Folate levels - Hematology/oncology consult appreciated #. Probable cirrhosis. Based on hepatic imaging. History is positive for regular consumption of 2-3 alcohol drinks per day per patient. No prior clinical diagnosis diagnosis. - Follow CMP periodically - Discussed alcohol cessation with patient the patient admits to drinking at least 2 hard on alcohol beverages per day. He states that sometimes she has 3. - Plan referral for appropriate hepatic follow-up, depending on overall health picture #. Elevated transaminitis. AST 203, ALT 143 on admission. Hepatic imaging suggests cirrhosis but possibly also nodular disease. - will order Hepatitis panel - To consider further focused hepatic imaging #. Abnormal thyroid function tests. Hypothyroidism versus euthyroid sick syndrome. Unclear whether this is symptomatic, in setting of multiple other medical issues. - Repeat tests with reverse T4 - Consider treatment as indicated #. Osteoporosis. With possible pathological fractures, possibly secondary to metastatic disease. - Plan to continue her chronic Fosamax therapy #. Depression - continue Prozac # Alcoholism -May need [facility] protocol - Acetaminophen as needed for mild pain/fever/headache - Bowel regimen as needed - Antiemetic as needed Disposition: Patient will be here at least [address] Davies will follow for the hospital team in a.m. . Pain Evaluation: Adequate Pain Control VTE Prophylaxis: Sub-Q Enoxaparin Resuscitation Status: CPR: Attempt Resuscitation RanjeetHector MD Oct 18, 2016 23:01
[2016-10-19 04:07] LABS: TOTAL TRIIODOTHYRONINE 126 ng/dL (71-180)
[2016-10-19 05:35] VITALS: BP 150/89; PULSE 92; RESP 18; O2SAT 97
[2016-10-19 06:06] LABS: Mean Corpuscular Hemoglobin 36.5 pg (27.0-35.0); Mean Corpuscular Volume 113.8 fL (81-100); Platelet Count 151 bil/L (150-400)
[2016-10-19 06:41] LABS: Magnesium 1.9 mg/dL (1.6-2.6)
[2016-10-19 06:45] LABS: INR 1.1 ratio
--- NOTE | 2016-10-19 07:42 | NUR ---
no biopsy today pt has Heparin drip running due to the bilateral PE but per US the Heparin needed to be stopped 4 hours prior to procedure and now it will not be able to be done today due to a tight schedule.
--- NOTE | 2016-10-19 08:12 | NUR ---
neutropenic precaution this RN went in to meet the pt and there was a vase of fresh cut chan in the room. this RN removed chan and let pt know why they are being removed and that her family can pick them up at the front office director if they want. pt agrees with plan
[2016-10-19 08:41] LABS: BASOPHILS % (AUTO) 0 % (0-3); EOSINOPHILS % (AUTO) 2 % (0-5); MONOCYTES % (AUTO) 16 % (4-12); NEUTROPHILS % (AUTO) 49 % (40-74)
[2016-10-19] MEDS ORDERED: hydrALAZINE 20 mg/mL Inj IV PRN (09:05)
--- NOTE | 2016-10-19 10:50 | PCM.PHAPRO ---
Progress Elevated D dimer with respiratory symptoms WARFARIN DOSING PER PHARMACY Indication: PE Treatment Home dose: New start INR Goal: 2-3 Admit dx: PE metastatic CA Pancytopenia DI: N/A Additional Anticoagulation: Heparin Drip for bridging Lab Date Result Dose: INR 10/18/16 1.12 HOLD INR 10/19/16 1.10 Note: - Pt was scheduled to get liver biopsy last night, so warfarin dose was held - Heparin drip was not stopped 4 hrs prior to surgery, so getting liver biopsy tomorrow (10/20/16) - Will plan to hold warfarin dose again tonight and hope to resume tomorrow evening after biopsy - Pharmacy will continue to monitor INR/CBC/signs and symptoms of bleeding Ana Laura Kathleen PharmD Oct 19, 2016 10:50
[2016-10-19 13:32] VITALS: BP 130/73; PULSE 101; RESP 18; O2SAT 97
--- NOTE | 2016-10-19 14:10 | NUR ---
NUTRITION ASSESSMENT ASSESS: Pt is a 61yo female admitted for respiratory problems and history of metastatic cancer. Pt reports worsening SOB, fatigue, and dyspnea in the past two weeks. She has also been experiencing edema in her calf and intermittent purple discoloration of fingers and toes. CT scans show likely cirrhosis and metastatic disease to liver, spleen, bones and lymph nodes. Pt reports losing 20 pounds 6 months ago (15% wt. loss x 6 months) when she started a more physical job, but reports wt has stabilized. Wt loss may be greater than stated d/t recent abdominal ascites noted by MD. In meeting w/ pt, she is not concerned about the wt loss and declined taking the high calorie, high protein recipe book. Due to variable PO intake, suggested pt add chocolate Ensure at dinner, and pt was willing to try it. PMHX: Breast cancer Stage III-A w/ seven of 18 nodes positive, complete chemotherapy w/ Adriamycin/Cytoxan, recent sinusitis, right modified radical mastectomy LABS: BUN 7, AST 289, ALT 183, Alb 2.7 MEDS: Reviewed. GI: BMx2 (10/18) SKIN: Fer[place] 20 CURRENT WT: 50.8 BMI: 18.6 kg/m2 IBW: 56.8 kg DIET: General PO 25-100% EST. NEEDS: Cancer, possible liver disease, wt loss Kcals: 3836-6661 kcal/day (30-40 kcal/kg BW) Protein: 60-75g (1.2-1.5 g/kg BW) NUTRITION DIAGNOSIS: 1.) Increased nutrient needs related to cancer diagnosis as evidenced by severe wt. loss in last 6 months (15.3%) and variable PO intake. 2.) Severe protein calorie malnutrition related to comorbities as evidenced by unplanned severe wt. loss in last 6 months and variable PO intake. NUTRITION INTERVENTION: 1.) Add Chocolate Ensure on D tray per pt preference to help ensure adequate nutrition and protein intake. MONITOR / EVAL: PO, wt, labs, POC. Will continue to monitor per high nutritional risk guidelines. Addendum: 10/19/16 at [address] Auxiliary student documentation reviewed. I agree with above documentation. Sanjuana Hernandez, JANINA, CD
--- NOTE | 2016-10-19 17:59 | PCM.PNMED ---
Subjective Date of Service Oct 19, 2016 Subjective No liver biopsy today, we will need to plan for liver biopsy tomorrow due to heparin drip. Patient with no acute complaints, seen this morning, denied fevers or chills or chest pain. Exam Vital Signs Vital Sign - Last Date Time Temp Pulse Resp B/P Pulse Ox O2 Delivery O2 Flow Rate FiO2 10/19/16 13:32 37.1 101 18 130/73 97 Room Air Intake and Output 10/18/16 10/18/16 10/19/16 Cumulative From/Thru 15:00 23:00 07:00 10/16/16 17:42 - 10/19/16 06:47 Intake Total 406 ml 1100 ml 200 ml 4386 ml Output Total 200 ml 450 ml 2853 ml Balance 406 ml 900 ml -250 ml 1533 ml Intake Oral 1100 ml 200 ml 2120 ml IV Total 406 ml 2266 ml Output Urine Total 200 ml 450 ml 2853 ml # Voids 2 3 # Bowel Movements 2 2 Exam General: Patient is in no apparent distress. He is lying supine in bed with head elevated approximately 30-45. HEENT: Head is atraumatic normocephalic. Eyes: Pupils are equally round and reactive to light and accommodation. Extraocular muscles are intact. Sclera are white anicteric. Subconjunctival mucosa is pink. Ears and nose are unremarkable. Oropharynx: There is a large herpetic lesion just right of midline in the upper lip. There are no other mucosal lesions, there is no thrush, there is no pharyngitis. Neck: Is supple, there is no nodes or masses or tenderness. Chest: Is relatively clear to auscultation and percussion. There are no significant rales, rhonchi, wheezes or rubs. Heart: Rate rhythm is regular. There is no murmur rub or gallop. Abdomen: Good bowel sounds are present. Abdomen is soft, nontender, no organomegaly or masses were appreciated. Extremities: There is diffuse livido reticularis of the upper extremities bilaterally. Otherwise the extremities are symmetrical and well perfused. There is no edema, there is no cellulitis, no rash. Neurologic: There are no focal neurological deficits. Cranial nerves II through XII are intact. There are no sensory or motor deficits. Psychiatric: Patients mood is calm and shows no sign of agitation. IVs and Medications Medications Reviewed: Medications were reviewed in detail Lab and Diagnostics Result Diagram: 10/19/16 0535 10/19/1635 X-Rays, CTs and MRIs CT BRAIN WITHOUT CONTRAST 10/16/16 IMPRESSION: 1. Lytic lesions in the calvarium consistent with osseous metastatic disease. 2. No definite intracranial hemorrhage, mass or mass effect. If there is persistent clinical suspicion for intracranial metastatic disease, recommend further evaluation with a contrast enhanced brain MRI. Dictated by: Michael Garnica M.D. on 10/16/2016 at 21:38 Approved by: Michael Garnica M.D. on 10/16/2016 at 21:38 CT ANGIO CHEST PULMONARY EMBOLISM 10/16/16 IMPRESSION: 1. Multiple bilateral pulmonary emboli involving lobar pulmonary arteries in the right upper, middle, and lower lobes as well as the left lower lobe with extension into segmental and subsegmental branches. No definite evidence of right heart strain. 2. Findings consistent with diffuse metastatic disease including mediastinal lymphadenopathy, multiple hepatic mass lesions, splenic mass, mesenteric lymphadenopathy, and sclerotic bone lesions. 3. Compression fractures of T7 and T10 vertebral bodies as described without associated spinal canal narrowing. The fractures are likely pathologic secondary to metastatic disease. 4. Small amount of ascites within the visualized abdomen. Findings discussed with Dr. Cohn on 10/16/16 at 8:55 PM. Dictated by: Michael Garnica M.D. on 10/16/2016 at 21:05 Approved by: Michael Garnica M.D. on 10/16/2016 at 21:05 PROCEDURE: CT ABDOMEN AND PELVIS WITH CONTRAST ([id number]) FINDINGS: Image quality: Excellent. ABDOMEN: Lung bases: Lung bases are clear. Heart size is normal. Solid organs: Liver is enlarged, measuring 20.7 cm craniocaudal. Hepatic contour is nodular, indicating cirrhosis. There is a severe degree of multifocal patchy low density within the right and left hepatic lobes, as seen by recent CT angiography of the chest examination. There appears to be preservation of normal vascular architecture within portions of the ill-defined hepatic hypodensity, suggestive of fatty infiltration or infarction. There is enlargement of the spleen, which measures 14.7 cm craniocaudal. There is a focal wedge-shaped low-density focus within the posterior or medial spleen measuring 62 mm. Gallbladder wall is thickened, and there are multiple calculi within its lumen.. Biliary system is non-dilated. Pancreas enhances normally. No adrenal nodules. Kidneys are normal in size and enhancement, without hydronephrosis. Peritoneum and bowel: Stomach, small bowel, and colon loops are normal in caliber and wall thickness. No pneumoperitoneum. There is a small amount of ascites. Nodes and vessels: Mildly prominent retroperitoneal lymph nodes are present, which are increased in prominence. The largest of these is in the left anterior preaortic location and 12 mm short axis. Aorta is within normal limits. There is severe narrowing of the intrahepatic IVC. Recanalized umbilical vein is present. Bones: Multiple ill-defined lucencies within the thoracolumbar spine, and bilateral posterior leg wings are present, as before. There is a new mild L3 compression fracture. There is increased lucency involving the L3 vertebral body , measuring roughly 22 mm. Mild chronic T10 compression fracture. Moderate curvature of the spine at the thoracolumbar junction. Slight increase in 9 mm diameter sclerotic density within the left posterior acetabulum. IMPRESSION: 1. Cirrhosis, and portal hypertension, associated with splenomegaly, and small amount of ascites. 2. Moderate sized splenic infarct. 3. The multifocal ill-defined hepatic hypodense lesions are not definitively malignant, and may represent an atypical appearance of fatty infiltration, and/ or hepatic infarcts. Liver protocol MRI with and without intravenous contrast may be helpful for further assessment. 4. Cholelithiasis. Thickened gallbladder wall is present, which may indicate cholecystitis versus sequelae secondary to cirrhosis/portal hypertension. 5. Multifocal lucencies within the lumbar sacral spine and pelvis, and left posterior acetabular sclerotic density. New, mild L3 wedging associated with L3 lucent lesion. Findings could indicate bony metastatic disease; whole-body bone scan recommended for further assessment. 6. Increased, mild retroperitoneal lymph node enlargement; findings could be reactive (e.g., secondary to cirrhosis), or secondary to early metastatic disease; followup CT imaging is recommended in 1-3 months, as clinically warranted. 7. Findings and recommendations discussed with Dr. Pemberton on 10.17.16 at 1615 hrs. Dictated by: Manuel Pate M.D. on 10/17/2016 at 16:25 . Assessment & Plan Patient is a 61-year-old woman with history of breast cancer 12 years ago prevent presents with weakness and dyspnea on exertion noted to have pulmonary embolism. #. Multiple bilateral pulmonary emboli involving lobar pulmonary arteries in the right upper, middle, and lower lobes as well as the left lower lobe with extension into segmental and subsegmental branches. Present on admission. NO indications for TPA and at least no right heart strain on CT scan. Likely cause is related to Malignancy, with no recent travels, surgeries or contraceptives. No family history of thrombophilia. - Lovenox therapeutic (preferred anticoagulation for Pulmonary embolism with Malignancy). Switched to heparin drip - Hematology/oncology consultation - Patient is scheduled for a ultrasound-guided liver biopsy in a.m. will need heparin stopped at 6 AM prior to liver biopsy. #. Metastatic Breast Cancer. Present on admission. Based on findings in chest CT angiogram, patient was informed of likely metastatic disease to liver spleen bones and lymph nodes. Subsequent abdominal and imaging cast doubt on neoplastic disease of liver and spleen. Bone lesions seem to be a progression of prior findings observed on CT scan in 10/2015. Compression fracture of spine may be osteoporosis, for which the patient has a prior diagnosis. Adenopathy is of uncertain cause. -Oncology consultation obtained with Dr. Leal and will follow his recommendations.: #. Macrocytic anemia with Leukopenia. Present on admission. Consider alcohol bone marrow toxicity versus myelocystic disease. - checking Iron studies as well as Vitamin B and Folate levels - Hematology/oncology consult appreciated #. Probable cirrhosis. Based on hepatic imaging. History is positive for regular consumption of 2-3 alcohol drinks per day per patient. No prior clinical diagnosis diagnosis. - Follow CMP periodically - Discussed alcohol cessation with patient the patient admits to drinking at least 2 hard on alcohol beverages per day. He states that sometimes she has 3. - Plan referral for appropriate hepatic follow-up, depending on overall health picture #. Elevated transaminitis. AST 203, ALT 143 on admission. Hepatic imaging suggests cirrhosis but possibly also nodular disease. - will order Hepatitis panel - To consider further focused hepatic imaging #. Abnormal thyroid function tests. Hypothyroidism versus euthyroid sick syndrome. Unclear whether this is symptomatic, in setting of multiple other medical issues. - Repeat tests with reverse T4 - Consider treatment as indicated #. Osteoporosis. With possible pathological fractures, possibly secondary to metastatic disease. - Plan to continue her chronic Fosamax therapy #. Depression - continue Prozac # Alcoholism -May need [facility] protocol - Acetaminophen as needed for mild pain/fever/headache - Bowel regimen as needed - Antiemetic as needed Disposition: Patient will be here at least 48 more hours. VTE Prophylaxis: Sub-Q Enoxaparin VTE Mechanical Devices: Venous Foot Pump Resuscitation Status: CPR: Attempt Resuscitation Time spent 35 minutes spent with evaluation and management Adriel Davies DO Oct 19, 2016 17:59
[2016-10-19] MEDS: Heparin 25K Unit/500mL 0.45 NS 25,000 UNIT in IV Premix 1 EACH IV SCH (18:32)
--- NOTE | 2016-10-19 20:24 | NUR ---
spiritual care: pt request conversational visit. pt reflected on her symptoms and medical history, stating preference for going to [facility]" as she considers family/friend support and anticipates son's wedding in june. Pt awaiting medical news, shared her [employer] background--[employer]-- and sense of "staying positive." will plan to follow as needed.
[2016-10-19 22:06] VITALS: BP 148/89; PULSE 104; RESP 18; O2SAT 95
--- NOTE | 2016-10-20 05:22 | NUR ---
Heparin gtt stopped for liver biopsy scheduled @ 10:00, AM PTT Heparin scheduled for 05:00 about to be drawn.
[2016-10-20 06:06] VITALS: BP 133/77; PULSE 99; RESP 18; O2SAT 96
--- NOTE | 2016-10-20 07:03 | PCM.PNMED ---
Subjective Date of Service Oct 20, 2016 Subjective no complaints overnight, liver bx today - denies sob/cp Exam Vital Signs Vital Sign - Last Date Time Temp Pulse Resp B/P Pulse Ox O2 Delivery O2 Flow Rate FiO2 10/20/16 06:06 37.1 99 18 133/77 96 Room Air Intake and Output 10/19/16 10/19/16 10/20/16 Cumulative From/Thru 15:00 23:00 07:00 10/16/16 17:42 - 10/19/16 20:00 Intake Total 1336 ml 5722 ml Output Total 250 ml 3103 ml Balance 1086 ml 2619 ml Intake Oral 1336 ml 3456 ml IV Total 2266 ml Output Urine Total 250 ml 3103 ml # Voids 3 6 # Bowel Movements 0 2 Exam General: Patient is in no apparent distress. He is lying supine in bed with head elevated approximately 30-45. HEENT: Head is atraumatic normocephalic. Eyes: Pupils are equally round and reactive to light and accommodation. Extraocular muscles are intact. Sclera are white anicteric. Subconjunctival mucosa is pink. Ears and nose are unremarkable. Oropharynx: There is a large herpetic lesion just right of midline in the upper lip. There are no other mucosal lesions, there is no thrush, there is no pharyngitis. Neck: Is supple, there is no nodes or masses or tenderness. Chest: Is relatively clear to auscultation and percussion. There are no significant rales, rhonchi, wheezes or rubs. Heart: Rate rhythm is regular. There is no murmur rub or gallop. Abdomen: Good bowel sounds are present. Abdomen is soft, nontender, no organomegaly or masses were appreciated. Extremities: There is diffuse livido reticularis of the upper extremities bilaterally. Otherwise the extremities are symmetrical and well perfused. There is no edema, there is no cellulitis, no rash. Neurologic: There are no focal neurological deficits. Cranial nerves II through XII are intact. There are no sensory or motor deficits. Psychiatric: Patients mood is calm and shows no sign of agitation. IVs and Medications Medications Reviewed: Medications were reviewed in detail Lab and Diagnostics Result Diagram: 10/19/16 0535 10/19/16 0535 X-Rays, CTs and MRIs CT BRAIN WITHOUT CONTRAST 10/16/16 IMPRESSION: 1. Lytic lesions in the calvarium consistent with osseous metastatic disease. 2. No definite intracranial hemorrhage, mass or mass effect. If there is persistent clinical suspicion for intracranial metastatic disease, recommend further evaluation with a contrast enhanced brain MRI. Dictated by: Michael Garnica M.D. on 10/16/2016 at 21:38 Approved by: Michael Garnica M.D. on 10/16/2016 at 21:38 CT ANGIO CHEST PULMONARY EMBOLISM 10/16/16 IMPRESSION: 1. Multiple bilateral pulmonary emboli involving lobar pulmonary arteries in the right upper, middle, and lower lobes as well as the left lower lobe with extension into segmental and subsegmental branches. No definite evidence of right heart strain. 2. Findings consistent with diffuse metastatic disease including mediastinal lymphadenopathy, multiple hepatic mass lesions, splenic mass, mesenteric lymphadenopathy, and sclerotic bone lesions. 3. Compression fractures of T7 and T10 vertebral bodies as described without associated spinal canal narrowing. The fractures are likely pathologic secondary to metastatic disease. 4. Small amount of ascites within the visualized abdomen. Findings discussed with Dr. Conh on 10/16/16 at 8:55 PM. Dictated by: Michael Garnica M.D. on 10/16/2016 at 21:05 Approved by: Michael Garnica M.D. on 10/16/2016 at 21:05 PROCEDURE: CT ABDOMEN AND PELVIS WITH CONTRAST ([id number]) FINDINGS: Image quality: Excellent. ABDOMEN: Lung bases: Lung bases are clear. Heart size is normal. Solid organs: Liver is enlarged, measuring 20.7 cm craniocaudal. Hepatic contour is nodular, indicating cirrhosis. There is a severe degree of multifocal patchy low density within the right and left hepatic lobes, as seen by recent CT angiography of the chest examination. There appears to be preservation of normal vascular architecture within portions of the ill-defined hepatic hypodensity, suggestive of fatty infiltration or infarction. There is enlargement of the spleen, which measures 14.7 cm craniocaudal. There is a focal wedge-shaped low-density focus within the posterior or medial spleen measuring 62 mm. Gallbladder wall is thickened, and there are multiple calculi within its lumen.. Biliary system is non-dilated. Pancreas enhances normally. No adrenal nodules. Kidneys are normal in size and enhancement, without hydronephrosis. Peritoneum and bowel: Stomach, small bowel, and colon loops are normal in caliber and wall thickness. No pneumoperitoneum. There is a small amount of ascites. Nodes and vessels: Mildly prominent retroperitoneal lymph nodes are present, which are increased in prominence. The largest of these is in the left anterior preaortic location and 12 mm short axis. Aorta is within normal limits. There is severe narrowing of the intrahepatic IVC. Recanalized umbilical vein is present. Bones: Multiple ill-defined lucencies within the thoracolumbar spine, and bilateral posterior leg wings are present, as before. There is a new mild L3 compression fracture. There is increased lucency involving the L3 vertebral body , measuring roughly 22 mm. Mild chronic T10 compression fracture. Moderate curvature of the spine at the thoracolumbar junction. Slight increase in 9 mm diameter sclerotic density within the left posterior acetabulum. IMPRESSION: 1. Cirrhosis, and portal hypertension, associated with splenomegaly, and small amount of ascites. 2. Moderate sized splenic infarct. 3. The multifocal ill-defined hepatic hypodense lesions are not definitively malignant, and may represent an atypical appearance of fatty infiltration, and/ or hepatic infarcts. Liver protocol MRI with and without intravenous contrast may be helpful for further assessment. 4. Cholelithiasis. Thickened gallbladder wall is present, which may indicate cholecystitis versus sequelae secondary to cirrhosis/portal hypertension. 5. Multifocal lucencies within the lumbar sacral spine and pelvis, and left posterior acetabular sclerotic density. New, mild L3 wedging associated with L3 lucent lesion. Findings could indicate bony metastatic disease; whole-body bone scan recommended for further assessment. 6. Increased, mild retroperitoneal lymph node enlargement; findings could be reactive (e.g., secondary to cirrhosis), or secondary to early metastatic disease; followup CT imaging is recommended in 1-3 months, as clinically warranted. 7. Findings and recommendations discussed with Dr. Pemberton on 10.17.16 at 1615 hrs. Dictated by: Manuel Pate M.D. on 10/17/2016 at 16:25 . Assessment & Plan Patient is a 61-year-old woman with history of breast cancer 12 years ago prevent presents with weakness and dyspnea on exertion noted to have pulmonary embolism. #. Multiple bilateral pulmonary emboli involving lobar pulmonary arteries in the right upper, middle, and lower lobes as well as the left lower lobe with extension into segmental and subsegmental branches. Present on admission. NO indications for TPA and at least no right heart strain on CT scan. Likely cause is related to Malignancy, with no recent travels, surgeries or contraceptives. No family history of thrombophilia. - Lovenox therapeutic (preferred anticoagulation for Pulmonary embolism with Malignancy). Switched to heparin drip - Hematology/oncology consultation - Patient is scheduled for a ultrasound-guided liver biopsy in a.m. 10/20 - will need heparin stopped at 6 AM prior to liver biopsy. #. Metastatic Breast Cancer. Present on admission. Based on findings in chest CT angiogram, patient was informed of likely metastatic disease to liver spleen bones and lymph nodes. Subsequent abdominal and imaging cast doubt on neoplastic disease of liver and spleen. Bone lesions seem to be a progression of prior findings observed on CT scan in 10/2015. Compression fracture of spine may be osteoporosis, for which the patient has a prior diagnosis. Adenopathy is of uncertain cause. -Oncology consultation obtained with Dr. Leal and will follow his recommendations. #. Macrocytic anemia with Leukopenia. Present on admission. Consider alcohol bone marrow toxicity versus myelocystic disease. - checking Iron studies as well as Vitamin B and Folate levels - Hematology/oncology consult appreciated #. Probable cirrhosis. Based on hepatic imaging. History is positive for regular consumption of 2-3 alcohol drinks per day per patient. No prior clinical diagnosis diagnosis. - Follow CMP periodically - Discussed alcohol cessation with patient the patient admits to drinking at least 2 hard on alcohol beverages per day. - Plan referral for appropriate hepatic follow-up, depending on overall health picture #. Elevated transaminitis. AST 203, ALT 143 on admission. Hepatic imaging suggests cirrhosis but possibly also nodular disease. - will order Hepatitis panel - To consider further focused hepatic imaging #. Abnormal thyroid function tests. Hypothyroidism versus euthyroid sick syndrome. Unclear whether this is symptomatic, in setting of multiple other medical issues. - Repeat tests with reverse T4 - Consider treatment as indicated #. Osteoporosis. With possible pathological fractures, possibly secondary to metastatic disease. - Plan to continue her chronic Fosamax therapy #. Depression - continue Prozac # Alcoholism -May need [facility] protocol - Acetaminophen as needed for mild pain/fever/headache - Bowel regimen as needed - Antiemetic as needed Disposition: Patient will be here at least 48 more hours. Pain Evaluation: Adequate Pain Control VTE Prophylaxis: Sub-Q Enoxaparin VTE Mechanical Devices: Venous Foot Pump Resuscitation Status: CPR: Attempt Resuscitation Time spent 35 minutes spent Adriel Davies DO Oct 20, 2016 07:03
[2016-10-20 08:36] LABS: INR 1.11 ratio
--- NOTE | 2016-10-20 09:45 | NUR ---
Pt off floor to [facility] for liver biopsy. Transferred via bed. Report given to [facility], no s/sx of distress.
[2016-10-20] MEDS ORDERED: Flumazenil 0.1 mg/mL 5 mL Inj IV ONE (09:53)
[2016-10-20] MEDS ORDERED: fentaNYL-PF 50 mCg/mL 2 mL Inj ONE (09:53)
[2016-10-20] MEDS ORDERED: 0.9% Sodium Chloride 500 ML ONE (09:55)
[2016-10-20 10:11] VITALS: BP 135/82; PULSE 105; RESP 16; O2SAT 97
[2016-10-20] MEDS: Ondansetron 2 mg/mL 2 mL Inj IVPUSH PRN (11:27)
--- NOTE | 2016-10-20 13:46 | DRSVH ---
PROCEDURE: US ABDOMEN DOPPLER, LIMITED INDICATIONS: METASTATIC CA TECHNIQUE: Real-time scanning was performed of the abdominal and retroperitoneal organs, with image documentatio n. Color and pulse Doppler interrogation was also performed of the hepatic and splenic vessels, or o f the lesion of interest. COMPARISON: [facility], CT, CT ABD PELVIS W CON, 10/17/2016, 15:18. FINDINGS: Liver: Multiple liver masses are demonstrated. Doppler: Main portal vein is patent, with luminal diameter of 16 mm (normal of 13-16 mm). On pulse Doppler interrogation, portal vein flow direction is hepatopetal. Hepatic artery Doppler waveforms d emonstrate normal systolic upstrokes. Hepatic veins are all patent, with expected triphasic Doppler waveforms. Gallbladder: Gallbladder wall is mildly thickened measuring 4.0 mm multiple gallstones are present. Negative sonographic Spencer sign. Biliary ducts: No intrahepatic biliary ductal dilatation. Extrahepatic bile duct is 1.8 mm in calib er. Normal biliary caliber is 6-7 mm or less, or 10 mm or less post-cholecystectomy. Spleen: Spleen is enlarged in size and heterogeneous in echotexture. Pancreas: Visualized portions of the pancreas appear normal. Kidneys: Both kidneys are normal in size and echotexture. Right kidney measures 9 point cm long; le ft kidney measures 8.9 cm long. Left renal cortical thinning. No hydronephrosis or nephrolithiasis. No solid renal masses. Aorta: Visualized abdominal aorta is normal in caliber at less than 3 cm. Iliacs: Proximal common iliac arteries are normal in caliber at less than 2.5 cm. IVC: Intrahepatic inferior vena cava is patent. Miscellaneous: Mild ascites within all 4 quadrants of the abdomen. IMPRESSION: 1. Multiple hypoechoic liver masses redemonstrated consistent with hepatic metastasis. 2. Cholelithiasis with mildly thickened gallbladder wall. Recommend clinical correlation to exclude developing cholecystitis. 3. No splenoportal venous thrombosis is seen. 4. Splenomegaly with heterogeneous spleen in this patient history of splenic infarct. 5. Left renal atrophy with cortical thinning. 6. Mild ascites. Dictated by: Christopher BISHOP Interpreted: Cora Virk MD on 10/20/2016 at 13:46 Transcribed by: KYLEE on 10/20/2016 at 13:46 Approved by: Cora Virk M.D. on 10/20/2016 at 15:29
--- NOTE | 2016-10-20 14:27 | NUR ---
THERESA LIVER BX PT WAS RECEIVED FROM [facility] AT [id number]. LIVER BX WAS ACCOMPLISHED, SEE PAPER FLOW SHEET FOR DETAILS OF PROCEDURE. ZOFRAN 4MG IV WAS GIVEN FOR NAUSEA AND WAS EFFECTIVE. PT HAS BEEN AT BEDREST WITH 10LB WT ON ABDOMEN. SHEEBA MCCAULEY CAME AND TRANSFERRED PT BACK TO ROOM 3008 AT 1430. STAT HCT FOR 1515 HAS BEEN ORDERED. PT IS OFF BEDREST NOW AND HAS BEEN TOLERATING CLEAR LIQUIDS.
--- NOTE | 2016-10-20 14:30 | NUR ---
Pt back from [facility] for Liver Biopsy. Report received from Nurse. VSS, no s/sx distress. Biopsy site has bandage CDI with no signs of bleeding/hematoma. Pt drowsy from sedation. Getting STAT H&H LAB at 15:15.
--- NOTE | 2016-10-20 14:48 | DRSVH ---
PROCEDURE: US-GUIDED LIVER BIOPSY ([id number]) Ultrasound-guided liver biopsy with sedation analgesia for 15 minutes. INDICATIONS: METASTATIC CA TECHNIQUE: The indications, alternatives, benefits, risks, and complications of the procedure were e xplained to the patient. Written informed consent was obtained and placed in the chart. Continuous EKG and hemodynamic monitoring was started by trained personnel. Real-time sonography was utilized to choose the site for percutaneous hepatic biopsy. The skin was p repped and draped in the usual sterile fashion, and 1% lidocaine was infiltrated down to the hepatic capsule. A coaxial needle was then advanced into the liver under direct sonographic visualization. A biopsy apparatus was then utilized, and core biopsies were obtained. The needle was then withdrawn . A bandage and overlying weight were applied to the biopsy site. The attending physician was shai gar, and personally performed the procedure. COMPARISON: [facility], CT, CT ABD PELVIS W CON, 10/17/2016, 15:18. FINDINGS: Biopsy site(s): Predominant left hepatic lobe lesion. Needle: Lumafitno biopsy needle set. Number of passes: 3 Medications: 1% lidocaine for local anaesthesia. IV Versed and fentanyl for conscious sedation for 15 minutes (see nursing record). Complications: None. IMPRESSION: Successful ultrasound-guided liver biopsy, with pathology results pending. Dictated by: Christopher BISHOP Interpreted: Cora Virk MD on 10/20/2016 at 13:31 Transcribed by: VANIA on 10/20/2016 at 17:47 Approved by: Cora Virk M.D. on 10/20/2016 at 15:33
--- NOTE | 2016-10-20 15:47 | NUR ---
NUTRITION FOLLOW-UP: ASSESS: Pt is a 61yo female admitted for respiratory problems and history of metastatic cancer. Pt reports worsening SOB, fatigue, and dyspnea in the past two weeks. CT scans show likely cirrhosis and metastatic disease to liver, spleen, bones and lymph nodes. Pt reports losing 20 pounds 6 months ago (15% wt. loss x 6 months) but reports wt has stabilized. Wt loss may be greater than stated d/t ascites. Pt reported not being concerned about the wt loss and declined high kcal/protein education. Pt is NPO for liver biopsy today. Prior to NPO status she was on a General diet and PO have been variable at 25-100% and pt is receiving ensure on D tray. PMHX: Breast cancer Stage III w/chemotherapy, sinusitis, right modified radical mastectomy LABS: Reviewed. BUN 7, AST 289, ALT 183, Alb 2.7 MEDS: Reviewed. GI: BMx2 (10/18) SKIN: Fercho 20 CURRENT WT: 50.8 BMI: 18.6 kg/m2 IBW: 56.8 kg (no new wt since admit) DIET: General, PO 25-100% (NPO for biopsy) EST. NEEDS: Cancer, possible liver disease, wt loss Kcals: 6729-4699 kcal/day (30-40 kcal/kg BW) Protein: 60-75g (1.2-1.5 g/kg BW) NUTRITION DIAGNOSIS: 1.) Increased nutrient needs related to cancer diagnosis as evidenced by severe wt. loss in last 6 months (15.3%) and variable PO intake.--PERSISTS 2.) Severe protein calorie malnutrition related to comorbities as evidenced by unplanned severe wt. loss in last 6 months and variable PO intake.--PERSISTS NUTRITION INTERVENTION: 1.) Continue Chocolate Ensure on D tray per pt preference to help ensure adequate nutrition and protein intake. 2.) Continue to monitor for new wt. MONITOR / EVAL: PO, wt, GI, labs, POC. Will continue to monitor per high nutritional risk guidelines.
[2016-10-20 20:42] VITALS: BP 129/78; PULSE 98; RESP 18; O2SAT 97
--- NOTE | 2016-10-20 20:59 | PROG NOTE ---
[address] [address] PROGRESS NOTE PATIENT: MARVA CHOPRA : 1955 MR#: [id number] ADMIT: 10/17/2016 JOB ID: [id number] DATE: 10/20/2016 MEDICAL ONCOLOGY PROGRESS NOTE: SUBJECTIVE: The patient was seen at the bedside, this time with her son and [id number] present. She was that pending to have a biopsy but this has taken a couple of days because of the complexity of anticoagulation management. CT of the abdomen as discussed in my notes of yesterday was discussed at our tumor board and the patient did have some changes of the liver that could be partially consistent with metastatic disease, particularly in the center and left hepatic lobe, but the large area of hypodensity in the lower right hepatic lobe was believed to be possibly also an infarct similar to the spleen. The patient has been ambulatory. Has not had any ill effects over the past two days. She has been switched to a heparin drip in order to be able to stop it and perform the biopsy. I have personally spoke with Christopher Thompson, RPA of Radiology this morning to discuss the need for a Doppler ultrasound as well as ultrasound-guided biopsy which occurred this morning. The Doppler ultrasound showed no evidence of thrombosis in the splenic or portal vein. Left renal atrophy was noted and multiple hyperechoic liver masses sonographically favoring metastases. Cholelithiasis with moderately thickened gallbladder wall. An ultrasound-guided biopsy of the predominant left hepatic lesion was performed successfully. Results will be pending. The patient has no new complaints. On exam, her weight is stable. Blood pressure is 135/82, afebrile. O2 sat 95% on room air. She has chronic lymphedema on the right arm from previous mastectomies. She has been ambulatory, although when I saw her this afternoon because of possible medication effect she was a little more groggy but fully oriented. LABORATORY: Hematocrit this afternoon was stable at 31. Chemistry shows normal electrolytes. Creatinine normal. Albumin 2.7. TSH 12. Free T4 is 1.1. ASSESSMENT AND PLAN: A 61-year-old lady with a prior history of stage 3A right-sided ER positive, HER-2 negative breast cancer about 14 years ago, who has not followed up with doctors since 2002 in this regard. She was admitted with large bilateral PEs and was found to have several radiographic abnormalities. Details are summarized in my consult note as well as the summary note of interim diagnostic workup of October 18. I had a chance today to have a family conference. The patient has an excessively elevated breast cancer tumor marker, as well as elevation of CEA. With the background history she is likely to have had recurrence of breast cancer and likely metastatic, although tissue proof is still pending. Because of her ongoing anticoagulation with the bilateral PE it has been challenging to obtain a biopsy, but after several conversations it has finally occurred this morning. It was performed from a left-sided liver lesion. Results will take several days to come back and will be probably towards mid next week. I discussed the possibilities and implications of our concern of recurrent metastatic breast cancer and also prepared the family that at times the biopsy can be nondiagnostic and would have to be repeated. The patient surprisingly maintains a good functional status despite of these issues. Thrombosis of the splenic or portal vein was ruled out with a Doppler ultrasound performed today. Technically, per discretion of the hospitalist team, she can be planned for discharge and be sent home on oral anticoagulation. I gave the family my contact information and plan to see her on October 31 in the clinic. In the interim, we will try to obtain a whole body bone scan after her discharge as an outpatient. TIME: Approximately 1 hour and 5 minutes were spent in counseling and coordination of care.
--- NOTE | 2016-10-21 01:45 | NUR ---
Mentation patient is a little uncoordinated after procedure. Spilled water and kept dropping medication administration at beginning of shift. After six hours of resting comfortably pressed call light for pain medication and able to track pill/water correctly. @01:45 conversational with desire to sleep rest of night.
[2016-10-21 05:05] VITALS: BP 142/74; PULSE 102; RESP 18; O2SAT 96
--- NOTE | 2016-10-21 05:52 | NUR ---
Ambulation / Vision Is very unsteady on feet this AM, attempting to brush teeth at sink was unable to ambulate without 1pa and bracing left arm onto and leaning against the countertop. Bedalarm on with three rails up. Some loss of vision or object identification during night seeming unable to find Kleenex box immediately in front of her but if I take a Kleenex out and hand to her she accepts it with proper coordination. In the same light conditions the previous night this behavior was not apparent.
[2016-10-21 06:05] LABS: INR 1.07 ratio
--- NOTE | 2016-10-21 08:12 | PCM.PNMED ---
Subjective Date of Service Oct 21, 2016 Subjective no acute events overnight, s/p liver bx - no cp/sob complaints, cont on heparin gtt with transition to coumadin, subtherapeutic now Exam Vital Signs Vital Sign - Last Date Time Temp Pulse Resp B/P Pulse Ox O2 Delivery O2 Flow Rate FiO2 10/21/16 05:05 36.2 102 18 142/74 96 Room Air Intake and Output 10/20/16 10/20/16 10/21/16 Cumulative From/Thru 15:00 23:00 07:00 10/16/16 17:42 - 10/21/16 06:29 Intake Total 0 ml 320 ml 6442 ml Output Total 800 ml 3903 ml Balance 0 ml -480 ml 2539 ml Intake Oral 0 ml 320 ml 4176 ml IV Total 2266 ml Output Urine Total 800 ml 3903 ml # Voids 2 10 # Bowel Movements 0 0 2 Exam General: Patient is in no apparent distress. He is lying supine in bed with head elevated approximately 30-45. HEENT: Head is atraumatic normocephalic. Sclera are white anicteric. Subconjunctival mucosa is pink. Ears and nose are unremarkable. Oropharynx: There is a large herpetic lesion just right of midline in the upper lip. There are no other mucosal lesions, there is no thrush, there is no pharyngitis. Neck: Is supple, there is no nodes or masses or tenderness. Chest: Is relatively clear to auscultation and percussion. There are no significant rales, rhonchi, wheezes or rubs. Heart: Rate rhythm is regular. There is no murmur rub or gallop. Abdomen: Good bowel sounds are present. Abdomen is soft, nontender, no organomegaly or masses were appreciated. Extremities: There is diffuse livido reticularis of the upper extremities bilaterally. Otherwise the extremities are symmetrical and well perfused. There is no edema, there is no cellulitis, no rash. Neurologic: There are no focal neurological deficits. Cranial nerves II through XII are intact. There are no sensory or motor deficits. Psychiatric: Patients mood is calm and shows no sign of agitation. IVs and Medications Medications Reviewed: Medications were reviewed in detail Lab and Diagnostics Result Diagram: 10/20/16 1630 10/19/16 0535 X-Rays, CTs and MRIs CT BRAIN WITHOUT CONTRAST 10/16/16 IMPRESSION: 1. Lytic lesions in the calvarium consistent with osseous metastatic disease. 2. No definite intracranial hemorrhage, mass or mass effect. If there is persistent clinical suspicion for intracranial metastatic disease, recommend further evaluation with a contrast enhanced brain MRI. Dictated by: Michael Garnica M.D. on 10/16/2016 at 21:38 Approved by: Michael Garnica M.D. on 10/16/2016 at 21:38 CT ANGIO CHEST PULMONARY EMBOLISM 10/16/16 IMPRESSION: 1. Multiple bilateral pulmonary emboli involving lobar pulmonary arteries in the right upper, middle, and lower lobes as well as the left lower lobe with extension into segmental and subsegmental branches. No definite evidence of right heart strain. 2. Findings consistent with diffuse metastatic disease including mediastinal lymphadenopathy, multiple hepatic mass lesions, splenic mass, mesenteric lymphadenopathy, and sclerotic bone lesions. 3. Compression fractures of T7 and T10 vertebral bodies as described without associated spinal canal narrowing. The fractures are likely pathologic secondary to metastatic disease. 4. Small amount of ascites within the visualized abdomen. Findings discussed with Dr. Cohn on 10/16/16 at 8:55 PM. Dictated by: Michael Garnica M.D. on 10/16/2016 at 21:05 Approved by: Michael Garnica M.D. on 10/16/2016 at 21:05 PROCEDURE: CT ABDOMEN AND PELVIS WITH CONTRAST ([id number]) FINDINGS: Image quality: Excellent. ABDOMEN: Lung bases: Lung bases are clear. Heart size is normal. Solid organs: Liver is enlarged, measuring 20.7 cm craniocaudal. Hepatic contour is nodular, indicating cirrhosis. There is a severe degree of multifocal patchy low density within the right and left hepatic lobes, as seen by recent CT angiography of the chest examination. There appears to be preservation of normal vascular architecture within portions of the ill-defined hepatic hypodensity, suggestive of fatty infiltration or infarction. There is enlargement of the spleen, which measures 14.7 cm craniocaudal. There is a focal wedge-shaped low-density focus within the posterior or medial spleen measuring 62 mm. Gallbladder wall is thickened, and there are multiple calculi within its lumen.. Biliary system is non-dilated. Pancreas enhances normally. No adrenal nodules. Kidneys are normal in size and enhancement, without hydronephrosis. Peritoneum and bowel: Stomach, small bowel, and colon loops are normal in caliber and wall thickness. No pneumoperitoneum. There is a small amount of ascites. Nodes and vessels: Mildly prominent retroperitoneal lymph nodes are present, which are increased in prominence. The largest of these is in the left anterior preaortic location and 12 mm short axis. Aorta is within normal limits. There is severe narrowing of the intrahepatic IVC. Recanalized umbilical vein is present. Bones: Multiple ill-defined lucencies within the thoracolumbar spine, and bilateral posterior leg wings are present, as before. There is a new mild L3 compression fracture. There is increased lucency involving the L3 vertebral body , measuring roughly 22 mm. Mild chronic T10 compression fracture. Moderate curvature of the spine at the thoracolumbar junction. Slight increase in 9 mm diameter sclerotic density within the left posterior acetabulum. IMPRESSION: 1. Cirrhosis, and portal hypertension, associated with splenomegaly, and small amount of ascites. 2. Moderate sized splenic infarct. 3. The multifocal ill-defined hepatic hypodense lesions are not definitively malignant, and may represent an atypical appearance of fatty infiltration, and/ or hepatic infarcts. Liver protocol MRI with and without intravenous contrast may be helpful for further assessment. 4. Cholelithiasis. Thickened gallbladder wall is present, which may indicate cholecystitis versus sequelae secondary to cirrhosis/portal hypertension. 5. Multifocal lucencies within the lumbar sacral spine and pelvis, and left posterior acetabular sclerotic density. New, mild L3 wedging associated with L3 lucent lesion. Findings could indicate bony metastatic disease; whole-body bone scan recommended for further assessment. 6. Increased, mild retroperitoneal lymph node enlargement; findings could be reactive (e.g., secondary to cirrhosis), or secondary to early metastatic disease; followup CT imaging is recommended in 1-3 months, as clinically warranted. 7. Findings and recommendations discussed with Dr. Pemberton on 10.17.16 at 1615 hrs. Dictated by: Manuel Pate M.D. on 10/17/2016 at 16:25 . Assessment & Plan Patient is a 61-year-old woman with history of breast cancer 12 years ago prevent presents with weakness and dyspnea on exertion noted to have pulmonary embolism. #. Multiple bilateral pulmonary emboli involving lobar pulmonary arteries in the right upper, middle, and lower lobes as well as the left lower lobe with extension into segmental and subsegmental branches. Present on admission. NO indications for TPA as there was no e/o right heart strain on CT scan. Likely 2/ 2 Malignancy, with no recent travels, surgeries or contraceptives. No family history of thrombophilia. - Lovenox therapeutic (preferred anticoagulation for Pulmonary embolism with Malignancy). Switched to heparin drip - Hematology/oncology consultation - Patient is scheduled for a ultrasound-guided liver biopsy in a.m. 10/20 - will need heparin stopped at 6 AM prior to liver biopsy. #. Metastatic Breast Cancer. Present on admission. Based on findings in chest CT angiogram, patient was informed of likely metastatic disease to liver spleen bones and lymph nodes. Subsequent abdominal and imaging cast doubt on neoplastic disease of liver and spleen. Bone lesions seem to be a progression of prior findings observed on CT scan in 10/2015. Compression fracture of spine may be osteoporosis, for which the patient has a prior diagnosis. Adenopathy is of uncertain cause. -Oncology consultation obtained with Dr. Leal -appreciate recs, will plan to dc sunday or sunday with AC #. Macrocytic anemia with Leukopenia. Present on admission. Consider alcohol bone marrow toxicity versus myelocystic disease. - checking Iron studies as well as Vitamin B and Folate levels - Hematology/oncology consult appreciated #. Probable cirrhosis. Based on hepatic imaging. History is positive for regular consumption of 2-3 alcohol drinks per day per patient. No prior clinical diagnosis diagnosis. - Follow CMP periodically - Discussed alcohol cessation with patient the patient admits to drinking at least 2 hard on alcohol beverages per day. - Plan referral for appropriate hepatic follow-up, depending on overall health picture #. Elevated transaminitis. AST 203, ALT 143 on admission. Hepatic imaging suggests cirrhosis but possibly also nodular disease. - will order Hepatitis panel - To consider further focused hepatic imaging #. Abnormal thyroid function tests. Hypothyroidism versus euthyroid sick syndrome. Unclear whether this is symptomatic, in setting of multiple other medical issues. - Repeat tests with reverse T4 - Consider treatment as indicated #. Osteoporosis. With possible pathological fractures, possibly secondary to metastatic disease. - Plan to continue her chronic Fosamax therapy #. Depression - continue Prozac # Alcoholism -May need [facility] protocol - Acetaminophen as needed for mild pain/fever/headache - Bowel regimen as needed - Antiemetic as needed Disposition: Patient will be here at least 48 more hours. Pain Evaluation: Adequate Pain Control VTE Prophylaxis: Sub-Q Enoxaparin VTE Mechanical Devices: Venous Foot Pump Resuscitation Status: CPR: Attempt Resuscitation Time spent 35 minutes spent Adriel Davies DO Oct 21, 2016 08:12
[2016-10-21 11:42] LABS: Mean Corpuscular Hemoglobin 36.9 pg (27.0-35.0); Mean Corpuscular Volume 114.2 fL (81-100); Platelet Count 185 bil/L (150-400)
[2016-10-21 12:14] LABS: BASOPHILS % (AUTO) 0 % (0-3); EOSINOPHILS % (AUTO) 1 % (0-5); MONOCYTES % (AUTO) 14 % (4-12); NEUTROPHILS % (AUTO) 73 % (40-74)
[2016-10-21 16:09] VITALS: BP 117/73; PULSE 112; RESP 18; O2SAT 93
[2016-10-21 20:54] VITALS: BP 130/74; PULSE 109; RESP 18; O2SAT 96
--- NOTE | 2016-10-22 04:31 | NUR ---
Mentation Pt alert and oriented, but seemed to not see things right in front of her. Friend in room said she did not seem herself. 1 PA to bedside commode, unsteady on feet still. Will continue to monitor.
[2016-10-22 04:57] VITALS: BP 140/67; PULSE 104; RESP 18; O2SAT 95
[2016-10-22 07:08] LABS: Mean Corpuscular Hemoglobin 36.7 pg (27.0-35.0); Mean Corpuscular Volume 114.8 fL (81-100); Platelet Count 193 bil/L (150-400)
[2016-10-22 07:26] LABS: INR 1.94 ratio
[2016-10-22 07:45] LABS: BASOPHILS % (AUTO) 0 % (0-3); EOSINOPHILS % (AUTO) 2 % (0-5); MONOCYTES % (AUTO) 15 % (4-12); NEUTROPHILS % (AUTO) 60 % (40-74)
--- NOTE | 2016-10-22 10:06 | DRSVH ---
PROCEDURE: CT BRAIN WITHOUT CONTRAST ([id number]) INDICATIONS: decr vision TECHNIQUE: Noncontrast 4.5 mm thick angled axial sections acquired from the foramen magnum to the vertex, with c oronal reformats. COMPARISON: [facility], CT, CT BRAIN WO CON, 10/16/2016, 21:18. FINDINGS: Image quality: Excellent. CSF spaces: Basal cisterns are patent. No extra-axial fluid collections. Ventricles are normal in size and shape. Brain: There is hinkle/white dedifferentiation within the watershed distribution between the right midd le and posterior cerebral arteries. This includes a portion of the right frontal, parietal, and tempo ral lobe. This is new when compared with the prior CT dated 10/16/16. No hemorrhagic transformation. N o midline shift. No intraventricular hemorrhage. Basal cisterns are open. No other suspicious hinkle ma tter findings. Skull and face: Lytic lesions are redemonstrated throughout the calvarium unchanged from the study da iker 10/16/16. Sinuses: Visualized sinuses and mastoids are clear. IMPRESSION: 1. Large right watershed distribution infarct as described above. No hemorrhagic transformation or mi dline shift. This finding was discussed with Dr. Davies at 10:03 AM on 10/22/16. 2. Multiple calvarial lytic lesions redemonstrated consistent with metastatic disease. Dictated by: Macie Peterson M.D. on 10/22/2016 at 9:59 Approved by: Macie Peterson M.D. on 10/22/2016 at 10:05
--- NOTE | 2016-10-22 10:23 | PCM.PNMED ---
Subjective Date of Service Oct 22, 2016 Subjective Patient seen this morning, questionable visual changes and asked patient who she did not believe she had significant visual changes but when examined she did have apparent visual loss with left-sided weakness. Patient feels a little anxious and is asking for a little bit of lorazepam. Denies shortness of breath or chest pain. An exam showed left sided weakness and a CT brain was ordered stat with evidence of a right temporal parietal region CVA. Radiology did not believe further imaging with MRI is necessary given it was seen very well on CT. Echo has been ordered along with carotid Dopplers. Patient to continue heparin drip and Coumadin for her PE Exam Vital Signs Vital Sign - Last Date Time Temp Pulse Resp B/P Pulse Ox O2 Delivery O2 Flow Rate FiO2 10/22/16 04:57 36.6 104 18 140/67 95 Room Air Intake and Output 10/21/16 10/21/16 10/22/16 Cumulative From/Thru 15:00 23:00 07:00 10/16/16 17:42 - 10/22/16 06:47 Intake Total 0 ml 200 ml 6642 ml Output Total 200 ml 700 ml 4803 ml Balance -200 ml -500 ml 1839 ml Intake Oral 0 ml 200 ml 4376 ml IV Total 2266 ml Output Urine Total 200 ml 700 ml 4803 ml # Voids 10 # Bowel Movements 2 Exam General: Patient is in no apparent distress. He is lying supine in bed with head elevated approximately 30-45. HEENT: Head is atraumatic normocephalic. Sclera are white anicteric. Subconjunctival mucosa is pink. Ears and nose are unremarkable. Oropharynx: There is a large herpetic lesion just right of midline in the upper lip. There are no other mucosal lesions, there is no thrush, there is no pharyngitis. Neck: Is supple, there is no nodes or masses or tenderness. Chest: Is relatively clear to auscultation and percussion. There are no significant rales, rhonchi, wheezes or rubs. Heart: Rate rhythm is regular. There is no murmur rub or gallop. Abdomen: Good bowel sounds are present. Abdomen is soft, nontender, no organomegaly or masses were appreciated. Extremities: There is diffuse livido reticularis of the upper extremities bilaterally. Otherwise the extremities are symmetrical and well perfused. There is no edema, there is no cellulitis, no rash. Neurologic: Notable new left upper extremity 4-5 muscle strength and left lower extremity to 2 out of 5 muscle strength, notable visual loss and decreased proprioception, noted left upper extremity pronator drift. Sensation is intact Psychiatric: Patients mood is calm and shows no sign of agitation. IVs and Medications Medications Reviewed: Medications were reviewed in detail Lab and Diagnostics Result Diagram: 10/22/1630 10/22/1630 X-Rays, CTs and MRIs CT BRAIN WITHOUT CONTRAST 10/16/16 IMPRESSION: 1. Lytic lesions in the calvarium consistent with osseous metastatic disease. 2. No definite intracranial hemorrhage, mass or mass effect. If there is persistent clinical suspicion for intracranial metastatic disease, recommend further evaluation with a contrast enhanced brain MRI. Dictated by: Michael Garnica M.D. on 10/16/2016 at 21:38 Approved by: Michael Garnica M.D. on 10/16/2016 at 21:38 CT ANGIO CHEST PULMONARY EMBOLISM 10/16/16 IMPRESSION: 1. Multiple bilateral pulmonary emboli involving lobar pulmonary arteries in the right upper, middle, and lower lobes as well as the left lower lobe with extension into segmental and subsegmental branches. No definite evidence of right heart strain. 2. Findings consistent with diffuse metastatic disease including mediastinal lymphadenopathy, multiple hepatic mass lesions, splenic mass, mesenteric lymphadenopathy, and sclerotic bone lesions. 3. Compression fractures of T7 and T10 vertebral bodies as described without associated spinal canal narrowing. The fractures are likely pathologic secondary to metastatic disease. 4. Small amount of ascites within the visualized abdomen. Findings discussed with Dr. Cohn on 10/16/16 at 8:55 PM. Dictated by: Michael Garnica M.D. on 10/16/2016 at 21:05 Approved by: Michael Garnica M.D. on 10/16/2016 at 21:05 PROCEDURE: CT ABDOMEN AND PELVIS WITH CONTRAST ([id number]) FINDINGS: Image quality: Excellent. ABDOMEN: Lung bases: Lung bases are clear. Heart size is normal. Solid organs: Liver is enlarged, measuring 20.7 cm craniocaudal. Hepatic contour is nodular, indicating cirrhosis. There is a severe degree of multifocal patchy low density within the right and left hepatic lobes, as seen by recent CT angiography of the chest examination. There appears to be preservation of normal vascular architecture within portions of the ill-defined hepatic hypodensity, suggestive of fatty infiltration or infarction. There is enlargement of the spleen, which measures 14.7 cm craniocaudal. There is a focal wedge-shaped low-density focus within the posterior or medial spleen measuring 62 mm. Gallbladder wall is thickened, and there are multiple calculi within its lumen.. Biliary system is non-dilated. Pancreas enhances normally. No adrenal nodules. Kidneys are normal in size and enhancement, without hydronephrosis. Peritoneum and bowel: Stomach, small bowel, and colon loops are normal in caliber and wall thickness. No pneumoperitoneum. There is a small amount of ascites. Nodes and vessels: Mildly prominent retroperitoneal lymph nodes are present, which are increased in prominence. The largest of these is in the left anterior preaortic location and 12 mm short axis. Aorta is within normal limits. There is severe narrowing of the intrahepatic IVC. Recanalized umbilical vein is present. Bones: Multiple ill-defined lucencies within the thoracolumbar spine, and bilateral posterior leg wings are present, as before. There is a new mild L3 compression fracture. There is increased lucency involving the L3 vertebral body , measuring roughly 22 mm. Mild chronic T10 compression fracture. Moderate curvature of the spine at the thoracolumbar junction. Slight increase in 9 mm diameter sclerotic density within the left posterior acetabulum. IMPRESSION: 1. Cirrhosis, and portal hypertension, associated with splenomegaly, and small amount of ascites. 2. Moderate sized splenic infarct. 3. The multifocal ill-defined hepatic hypodense lesions are not definitively malignant, and may represent an atypical appearance of fatty infiltration, and/ or hepatic infarcts. Liver protocol MRI with and without intravenous contrast may be helpful for further assessment. 4. Cholelithiasis. Thickened gallbladder wall is present, which may indicate cholecystitis versus sequelae secondary to cirrhosis/portal hypertension. 5. Multifocal lucencies within the lumbar sacral spine and pelvis, and left posterior acetabular sclerotic density. New, mild L3 wedging associated with L3 lucent lesion. Findings could indicate bony metastatic disease; whole-body bone scan recommended for further assessment. 6. Increased, mild retroperitoneal lymph node enlargement; findings could be reactive (e.g., secondary to cirrhosis), or secondary to early metastatic disease; followup CT imaging is recommended in 1-3 months, as clinically warranted. 7. Findings and recommendations discussed with Dr. Pemberton on 10.17.16 at 1615 hrs. Dictated by: Manuel Pate M.D. on 10/17/2016 at 16:25 . Assessment & Plan Patient is a 61-year-old woman with history of breast cancer 12 years ago prevent presents with weakness and dyspnea on exertion noted to have pulmonary embolism. #. New right temporal parietal CVA , with partial visual loss and left-sided weakness on exam. Likely secondary to metastatic CA with evidence of disease in the calvarium and lytic lesions of the bone -Awaiting final CT report, no evidence of intracranial hemorrhage per radiologist -echo pending, carotid Dopplers pending -Heparin drip today, INR almost therapeutic at 1.9 on Coumadin for below bilateral PE -PT OT request -EKG ordered -Consider MRI with and without contrast tomorrow for further vessel imaging #. Multiple bilateral pulmonary emboli involving lobar pulmonary arteries in the right upper, middle, and lower lobes as well as the left lower lobe with extension into segmental and subsegmental branches. Present on admission. NO indications for TPA as there was no e/o right heart strain on CT scan. Likely 2/ 2 Malignancy, with no recent travels, surgeries or contraceptives. No family history of thrombophilia. - Lovenox therapeutic (preferred anticoagulation for Pulmonary embolism with Malignancy). Switched to heparin drip during hospitalization prior to liver biopsy - Hematology/oncology consultation - Patient is scheduled for a ultrasound-guided liver biopsy 10/20 #. Metastatic Breast Cancer. Present on admission. Based on findings in chest CT angiogram, patient was informed of likely metastatic disease to liver spleen bones and lymph nodes. Subsequent abdominal and imaging cast doubt on neoplastic disease of liver and spleen. Bone lesions seem to be a progression of prior findings observed on CT scan in 10/2015. Compression fracture of spine may be osteoporosis, for which the patient has a prior diagnosis. Adenopathy is of uncertain cause. -Oncology consultation obtained with Dr. Leal -appreciate recs #. Macrocytic anemia with Leukopenia. Present on admission. Consider alcohol bone marrow toxicity versus myelocystic disease. - checking Iron studies as well as Vitamin B and Folate levels - Hematology/oncology consult appreciated #. Probable cirrhosis. Based on hepatic imaging. History is positive for regular consumption of 2-3 alcohol drinks per day per patient. No prior clinical diagnosis diagnosis. - Follow CMP periodically - Discussed alcohol cessation with patient the patient admits to drinking at least 2 hard on alcohol beverages per day. - Plan referral for appropriate hepatic follow-up, depending on overall health picture #. Elevated transaminitis. AST 203, ALT 143 on admission. Hepatic imaging suggests cirrhosis but possibly also nodular disease. - will order Hepatitis panel - To consider further focused hepatic imaging #. Abnormal thyroid function tests. Hypothyroidism versus euthyroid sick syndrome. Unclear whether this is symptomatic, in setting of multiple other medical issues. - Repeat tests with reverse T4 - Consider treatment as indicated #. Osteoporosis. With possible pathological fractures, possibly secondary to metastatic disease. - Plan to continue her chronic Fosamax therapy #. Depression - continue Prozac # Alcoholism -May need [facility] protocol - Acetaminophen as needed for mild pain/fever/headache - Bowel regimen as needed - Antiemetic as needed Disposition: Patient will be here at least 48 more hours. Pain Evaluation: Adequate Pain Control VTE Prophylaxis: Other (heparin drip and INR almost therapeutic on warfarin) VTE Mechanical Devices: Venous Foot Pump Resuscitation Status: CPR: Attempt Resuscitation Time spent 40 minutes spent with evaluation and management including coordination of care for this patient greater than 50% igea-vk-oxtu counseling Adriel Davies DO Oct 22, 2016 10:22
[2016-10-22] MEDS: Heparin 25K Unit/500mL 0.45 NS 25,000 UNIT in IV Premix 1 EACH IV SCH (11:52)
[2016-10-22 13:37] VITALS: BP 142/73; PULSE 98; RESP 18; O2SAT 95
[2016-10-22] MEDS ORDERED: Sodium Chloride LOK Flush 10 mL Syringe IVFLUSH PRN ×2 (14:55)
--- NOTE | 2016-10-22 15:10 | DRSVH ---
PROCEDURE: X-RAY PICC LINE PLACEMENT BY NURSE ([id number]) INDICATIONS: KARLY ACCESS COMPARISON: None. FINDINGS: PICC was placed by the intravenous therapy team from the left side. Fluoroscopic spot samina m demonstrates tip of PICC projected over the cavoatrial junction. IMPRESSION: Tip of PICC is projected over the cavoatrial junction. Dictated by: Macie Peterson M.D. on 10/22/2016 at 15:06 Approved by: Macie Peterson M.D. on 10/22/2016 at 15:08
--- NOTE | 2016-10-22 15:45 | NUR ---
Social Work: Continued d/c planning Data: Pt is on day 5 of hospitalization. EMR reviewed, pt discussed in rounds. anticipates pt to remain in hospital for at least 3 more days. states pt will need a CT and MRI today and restart heparin drip. Pt will need Coumadin Clinic at d/c. [facility] will continue to follow. Assessment: Pt who is independent at baseline. Plan: Pt will d/c home via POV when medically stable. Pt will need Coumadin Clinic at d/c. [facility] will continue to follow. HARISH Mckenzie
[2016-10-22] MEDS ORDERED: 0.9% Sodium Chloride 1,000 ML IV SCH (16:05)
[2016-10-22] MEDS: Ondansetron 2 mg/mL 2 mL Inj IVPUSH PRN (16:08)
--- NOTE | 2016-10-22 16:16 | DRSVH ---
PROCEDURE: MRI STROKE PROTOCOL ([id number]) Pre- and post-contrast brain MRI, non-contrast brain MR angiogram, pre- and postcontrast neck MR nayely ogram INDICATIONS: cva TECHNIQUE: Brain: Noncontrast axial T1 spin echo, axial T2 fast spin echo, sagittal and axial FLAIR, coronal T2 fast spin echo, axial gradient echo, axial diffusion and ADC through the brain. After the administr ation of contrast, axial 3D VIBE of the cranial vasculature and brain. Brain MRA: Non-contrast 3-D time of flight MR angiogram, with multiple sqjywnp-tjkgbumbp-ajxvpnuxrx (MIP) reformats performed. Neck MRA: Axial and sagittal TruFISP through the neck. Coronal dynamic MR angiogram during administ ration of contrast in the arterial and venous phases, with 3-dimenstional uammuky-ktfqyyuxy-zpkcjphxs n (MIP) reformats constructed from subtraction images. COMPARISON: [facility], CT, CT BRAIN WO CON, 10/22/2016, 9:48. FINDINGS: Image quality: Diagnostic brain MRI. Nondiagnostic neck MR angiogram related to severe motion. Sub optimal brain MR angiogram related to mild motion. BRAIN: (Diagnostic but limited by mild motion) CSF spaces: Ventricles are slightly prominent in size, but normal in shape. Basal cisterns are graham nt. No extra-axial fluid collections. Brain: No intracranial bleeds or mass effects. There is a large area of edema noted on the flair im ages along the right temporoparietal occipital region, primarily seen within the right parietal and t emporal lobes with corresponding increased diffusion signal. Additional areas of increased signal ar e identified within the right cerebellar hemisphere with corresponding increased diffusion signal. N o definite areas of additional abnormal diffusion signal are evident within the brain. No additional areas of abnormal signal are present within the brain. No suspicious osseous enhancement or mass le sions are evident. Skull and face: Calvarial marrow signal is normal. Orbits appear normal. Sinuses: Because of thickening is noted involving the inferior maxillary sinuses. BRAIN MR ANGIOGRAM: (Moderately limited related to motion) Anterior circulation: Intracranial internal carotid arteries are normal in size and enhancement. Th e flow within the paired anterior cerebral arteries is normal and symmetric. There is slight asymmetr y in flow identified involving the distal branches of the right middle cerebral artery compared to th e left in the region where there is an acute area of ischemia. However, the right middle cerebral ar kristi is otherwise patent including the M1 and M2 branches. The more distal branches within the parie britt and temporal regions are less in number compared to the left side. The left middle cerebral maciel ry is patent and within normal limits. No stenoses, occlusions, or aneurysms. Posterior circulation: The visualized portions of the vertebral arteries demonstrate normal caliber, and join to form a normal appearing basilar artery. The flow within the posterior cerebral arteries is normal and symmetric. No stenoses, occlusions, or aneurysms. NECK MR ANGIOGRAM: (Nondiagnostic) Carotids: The carotid arteries are not adequately evaluated on this examination. On the avionics repair technician image s there is flow identified within the bilateral common carotid arteries and proximal internal carotid arteries. The proximal most aspect of the common carotid arteries in the distal aspect of the inter nal carotid arteries are not adequately seen regarding the degree of flow. Evaluation for subtle hal rowing or aneurysm is inadequate. Posterior circulation: The cervical portions of the vertebral arteries demonstrate expected flow voi ds, suggesting that these vessels are patent through this region. The proximalmost and distalmost as pects of the vertebral arteries are not adequately evaluated on this exam. Miscellaneous: Pre-contrast images through the chest and neck demonstrate moderate bilateral effusio ns (right greater than left). IMPRESSION: BRAIN MRI: 1. Large area of acute ischemia involving the right iblghcid-ymuvahfc-ciiosvxim region. There is sp aring of the right frontal lobe. 2. Small areas of acute ischemia involving the right cerebellar hemisphere. 3. No acute hemorrhage or hemorrhagic conversion within the brain. 4. No parenchymal masses or suspicious enhancement. 5. Moderate maxillary sinus disease. BRAIN MR ANGIOGRAM: 1. There appears to be occlusion of one of the more of the posterior distal branches of the right mi ddle cerebral artery, correlating with the large area of ischemia involving the right parietal-tempor al-occipital region. The main portion of the right middle cerebral artery is patent and the anterior branches of the right middle cerebral artery are also patent. 2. The posterior circulation is within normal limits. NECK MR ANGIOGRAM: 1. Nondiagnostic evaluation of the carotid arteries related to severe motion. No complete occlusion s involving the vertebral arteries or carotid arteries are evident. However, this examination is non diagnostic for evaluation of areas of narrowing, occlusion, or aneurysm. 2. Moderate-sized bilateral pleural effusions (right greater than left). The estimate of stenosis included in the report of the imaging study was calculated using the NASCET method Dictated by: Brendan Grimaldo M.D. on 10/22/2016 at 15:02 Approved by: Brendan Grimaldo M.D. on 10/22/2016 at 15:15
[2016-10-22] MEDS: Pantoprazole 4 mg/mL 10 mL Inj IVPUSH SCH ×2 (16:30→17:53)
[2016-10-22 19:03] VITALS: BP 143/60; PULSE 110; RESP 18; O2SAT 96
--- NOTE | 2016-10-22 19:03 | NUR ---
Weight Pt weighed on standing scale this morning prior to starting Heparin gtt due to discrepancy, current weight 61.8
--- NOTE | 2016-10-22 20:13 | DRSVH ---
PROCEDURE: US BILATERAL DUPLEX DOPPLER IMAGING OF THE CAROTIDS ([id number]) INDICATIONS: subacute cva, CA, PE TECHNIQUE: Color and pulse Doppler interrogation was performed of both carotid systems, with image documentation and velocity measurements. COMPARISON: None. FINDINGS: All stenosis calculations are based on NASCET criteria. Right side: Brachial blood pressure: 142/73 mm Hg. Common carotid artery peak systolic velocity: 56 cm/sec. Internal carotid artery peak systolic velocity: 61 cm/sec. Internal carotid artery end diastolic velocity: 27 cm/sec. External carotid artery peak systolic velocity: 75 cm/sec. ICA/CCA peak systolic ratio: 1.07. [place] scale imaging description: Mild atheromatous plaque at the carotid bifurcation. Percent internal carotid artery stenosis: Less than 50% stenosis. Vertebral artery: Flow direction is antegrade. Left side: Brachial blood pressure: 140/67 mm Hg. Common carotid artery peak systolic velocity: 78 cm/sec. Internal carotid artery peak systolic velocity: 97 cm/sec. Internal carotid artery end diastolic velocity: 34 cm/sec. External carotid artery peak systolic velocity: 72 cm/sec. ICA/CCA peak systolic ratio: 1.24. [place] scale imaging description: Atheromatous plaque, some of it shadowing is present at the carotid b ifurcation. Percent internal carotid artery stenosis: Less than 50% stenosis. Vertebral artery: Flow direction is antegrade. IMPRESSION: Less than 50% stenosis of the bilateral internal carotid arteries. Dictated by: Macie Peterson M.D. on 10/22/2016 at 20:07 Approved by: Macie Peterson M.D. on 10/22/2016 at 20:11
[2016-10-23 05:22] VITALS: BP 138/74; PULSE 107; RESP 18; O2SAT 96
--- NOTE | 2016-10-23 06:40 | NUR ---
activity Pt remained in bed for most of shift, up to bedside commode as needed. Pleasant and cooperative with cares. Pt unhappy about being back on heparin drip, but cooperative. Will continue to monitor.
[2016-10-23 09:05] LABS: Mean Corpuscular Hemoglobin 36.3 pg (27.0-35.0); Mean Corpuscular Volume 113.9 fL (81-100); Platelet Count 149 bil/L (150-400)
[2016-10-23 09:22] LABS: INR 2.95 ratio
[2016-10-23 09:40] LABS: BASOPHILS % (AUTO) 0 % (0-3); EOSINOPHILS % (AUTO) 1 % (0-5); MONOCYTES % (AUTO) 16 % (4-12); NEUTROPHILS % (AUTO) 56 % (40-74)
--- NOTE | 2016-10-23 10:39 | PCM.PNMED ---
Subjective Date of Service Oct 23, 2016 Subjective Patient alert and orientated. Appeared confused however. Sister states patient is usually more lively, not flat affect. Patient inconsistently follows commands. Unable to complete full neurologic exam Exam Vital Signs Vital Sign - Last Date Time Temp Pulse Resp B/P Pulse Ox O2 Delivery O2 Flow Rate FiO2 10/23/16 05:22 36.4 107 18 138/74 96 Room Air Intake and Output 10/22/16 10/22/16 10/23/16 Cumulative From/Thru 15:00 23:00 07:00 10/16/16 17:42 - 10/23/16 05:21 Intake Total 522 ml 1053 ml 8217 ml Output Total 600 ml 470 ml 5873 ml Balance -78 ml 583 ml 2344 ml Intake Oral 400 ml 4776 ml IV Total 122 ml 1053 ml 3441 ml Output Urine Total 600 ml 470 ml 5873 ml # Voids 2 12 # Bowel Movements 0 2 Exam General: lying comfortably in soma bed HEENT: EOMI. Anicteric sclerae, Moist Mucous Membranes Neck: Neck supple with full ROM, no tenderness or stiffness with flexion Chest & Lungs: b/l air sound, no crackles, wheezes, or coarse breathing Cardiovascular: RRR, No Murmurs/Rubs/Gallops Abdomen: Soft, obese, Non-tender, Non-distended, No masses, Normoactive bowel tones, Extremities: no cyanosis/clubbing/edema bilaterally Neurological: alert and oriented x3, current president "Jeff Rodriguez". First president "Jessee Solis", 5/5 upper and lower leg strengths. mild receptive aphagia. was not able to evaluate field of vision. Psych: flat affect. Lab and Diagnostics Result Diagram: 10/23/16 0858 10/23/16 0858 X-Rays, CTs and MRIs CT BRAIN WITHOUT CONTRAST 10/16/16 IMPRESSION: 1. Lytic lesions in the calvarium consistent with osseous metastatic disease. 2. No definite intracranial hemorrhage, mass or mass effect. If there is persistent clinical suspicion for intracranial metastatic disease, recommend further evaluation with a contrast enhanced brain MRI. Dictated by: Michael Garnica M.D. on 10/16/2016 at 21:38 CT ANGIO CHEST PULMONARY EMBOLISM 10/16/16 IMPRESSION: 1. Multiple bilateral pulmonary emboli involving lobar pulmonary arteries in the right upper, middle, and lower lobes as well as the left lower lobe with extension into segmental and subsegmental branches. No definite evidence of right heart strain. 2. Findings consistent with diffuse metastatic disease including mediastinal lymphadenopathy, multiple hepatic mass lesions, splenic mass, mesenteric lymphadenopathy, and sclerotic bone lesions. 3. Compression fractures of T7 and T10 vertebral bodies as described without associated spinal canal narrowing. The fractures are likely pathologic secondary to metastatic disease. 4. Small amount of ascites within the visualized abdomen. Findings discussed with Dr. Cohn on 10/16/16 at 8:55 PM. Dictated by: Michael Garnica M.D. on 10/16/2016 at 21:05 PROCEDURE: CT ABDOMEN AND PELVIS WITH CONTRAST ([id number]) IMPRESSION: 1. Cirrhosis, and portal hypertension, associated with splenomegaly, and small amount of ascites. 2. Moderate sized splenic infarct. 3. The multifocal ill-defined hepatic hypodense lesions are not definitively malignant, and may represent an atypical appearance of fatty infiltration, and/ or hepatic infarcts. Liver protocol MRI with and without intravenous contrast may be helpful for further assessment. 4. Cholelithiasis. Thickened gallbladder wall is present, which may indicate cholecystitis versus sequelae secondary to cirrhosis/portal hypertension. 5. Multifocal lucencies within the lumbar sacral spine and pelvis, and left posterior acetabular sclerotic density. New, mild L3 wedging associated with L3 lucent lesion. Findings could indicate bony metastatic disease; whole-body bone scan recommended for further assessment. 6. Increased, mild retroperitoneal lymph node enlargement; findings could be reactive (e.g., secondary to cirrhosis), or secondary to early metastatic disease; followup CT imaging is recommended in 1-3 months, as clinically warranted. 7. Findings and recommendations discussed with Dr. Pemberton on 10.17.16 at 1615 hrs. Dictated by: Manuel Pate M.D. on 10/17/2016 at 16:25 PROCEDURE: CT BRAIN WITHOUT CONTRAST IMPRESSION: 1. Large right watershed distribution infarct as described above. No hemorrhagic transformation or midline shift. This finding was discussed with Dr. Davies at 10:03 AM on 10/22/16. 2. Multiple calvarial lytic lesions redemonstrated consistent with metastatic disease. Dictated by: Macie Peterson M.D. on 10/22/2016 at 9:59 PROCEDURE: MRI STROKE PROTOCOL FINDINGS: IMPRESSION: BRAIN MRI: 1. Large area of acute ischemia involving the right parietal-temporal- occipital region. There is sparing of the right frontal lobe. 2. Small areas of acute ischemia involving the right cerebellar hemisphere. 3. No acute hemorrhage or hemorrhagic conversion within the brain. 4. No parenchymal masses or suspicious enhancement. 5. Moderate maxillary sinus disease. BRAIN MR ANGIOGRAM: 1. There appears to be occlusion of one of the more of the posterior distal branches of the right middle cerebral artery, correlating with the large area of ischemia involving the right jkrgswgk-zsnogasd-oanubsywu region. The main portion of the right middle cerebral artery is patent and the anterior branches of the right middle cerebral artery are also patent. 2. The posterior circulation is within normal limits. NECK MR ANGIOGRAM: 1. Nondiagnostic evaluation of the carotid arteries related to severe motion. No complete occlusions involving the vertebral arteries or carotid arteries are evident. However, this examination is nondiagnostic for evaluation of areas of narrowing, occlusion, or aneurysm. 2. Moderate-sized bilateral pleural effusions (right greater than left). The estimate of stenosis included in the report of the imaging study was calculated using the NASCET method Dictated by: Brendan Grimaldo M.D. on 10/22/2016 at 15:02 Assessment & Plan Patient is a 61-year-old right handed woman with history of breast cancer 12 years ago prevent presents with weakness and dyspnea on exertion noted to have pulmonary embolism, new right temporal parietal CVA and DVT of LLE. #. New right temporal parietal CVA , with partial visual loss and left-sided weakness on exam. Likely secondary to metastatic CA with evidence of disease in the calvarium and lytic lesions of the bone -MRI demonstrate multiple embolic strokes, largest is located parietal-temporal- occipital region. -Echo with bubble, Us venous lower leg duplex pending -Plavix and atorvastatin added. #. Multiple bilateral pulmonary emboli involving lobar pulmonary arteries in the right upper, middle, and lower lobes as well as the left lower lobe with extension into segmental and subsegmental branches. Present on admission. NO indications for TPA as there was no e/o right heart strain on CT scan. Likely 2/ 2 Malignancy, with no recent travels, surgeries or contraceptives. No family history of thrombophilia. - Lovenox therapeutic (preferred anticoagulation for Pulmonary embolism with Malignancy) - Continue Warfarin - INR is therapeutic at present, Pharmacy managing dosing - Recheck INR in AM - Hematology/oncology consultation on anticoagulation is much appreciated. #. Metastatic Breast Cancer. Present on admission. Based on findings in chest CT angiogram, patient was informed of likely metastatic disease to liver spleen bones and lymph nodes. Subsequent abdominal and imaging cast doubt on neoplastic disease of liver and spleen. Bone lesions seem to be a progression of prior findings observed on CT scan in 10/2015. Compression fracture of spine may be osteoporosis, for which the patient has a prior diagnosis. Adenopathy is of uncertain cause. -Oncology consultation obtained with Dr. Leal -appreciate recs -Palliative care consult to determine goals of care #. Macrocytic anemia with Leukopenia. Present on admission. Consider alcohol bone marrow toxicity versus myelocystic disease. - checking Iron studies as well as Vitamin B and Folate levels - Hematology/oncology consult appreciated #. Probable cirrhosis. Based on hepatic imaging. History is positive for regular consumption of 2-3 alcohol drinks per day per patient. No prior clinical diagnosis diagnosis. - Follow CMP periodically - Discussed alcohol cessation with patient the patient admits to drinking at least 2 hard on alcohol beverages per day. - Plan referral for appropriate hepatic follow-up, depending on overall health picture #. Elevated transaminitis. AST 203, ALT 143 on admission. Hepatic imaging suggests cirrhosis but possibly also nodular disease. - will order Hepatitis panel - To consider further focused hepatic imaging #. Abnormal thyroid function tests. Hypothyroidism versus euthyroid sick syndrome. Unclear whether this is symptomatic, in setting of multiple other medical issues. - Repeat tests with reverse T4 - Consider treatment as indicated #. Osteoporosis. With possible pathological fractures, possibly secondary to metastatic disease. - Plan to continue her chronic Fosamax therapy #. Depression - continue Prozac # Alcoholism -May need CIWA protocol - Acetaminophen as needed for mild pain/fever/headache - Bowel regimen as needed - Antiemetic as needed Disposition: Patient will be here at least 48 more hours. VTE Prophylaxis: Other (heparin drip and INR almost therapeutic on warfarin) VTE Mechanical Devices: Venous Foot Pump Resuscitation Status: CPR: Attempt Resuscitation Attending Statement The patient was seen and examined together with Dr. Kel Ordaz on 10/23/2016 and I have agree with the assessment and plan of care as noted above. Kel Ordaz DO Oct 23, 2016 10:39 George Adamson MD Oct 24, 2016 14:54
--- NOTE | 2016-10-23 12:00 | NUR ---
Evaluation completed. Please go to "Notes" then click on "Assessments and Notes" (bottom left corner of screen). Then select appropriate discipline tab on top of screen.
--- NOTE | 2016-10-23 13:15 | NUR ---
Palliative Care Palliative Care received verbal order from Agnieszka Ordaz DO 10/23/16 to assist with goals of care. Patient is a 61 year old woman with history of breast cancer. She was admitted 10/17/16 with weakness and dyspnea on exertion. She is receiving care for pulmonary embolism and new right temporal parietal CVA. Patient lives with family. Abilio Sealsmario alberto (son) [phone] Li Burns (friend) [phone] Palliative Care to follow. Alea Jeffrey
[2016-10-23 15:08] VITALS: BP 157/74; PULSE 105; RESP 18; O2SAT 93
--- NOTE | 2016-10-23 15:24 | PCM.CONPAL ---
Date of Service Oct 23, 2016 Date of Hospital Admission: Oct 17, 2016 at 00:29 Date of Palliative Consult: Oct 23, 2016 Requesting Provider: Kel Ordaz DO Reason Palliative Care Consult: Goals of Care Discussion Hospital Unit @time of consult: Medical/Pediatric Care Palliative Care Recommendation 61-year-old female admitted with finding of multiple bilateral pulmonary emboli after presenting with dyspnea and chest pain. Evaluation has shown widespread abnormalities, probably consistent with metastatic disease, probably related to her prior diagnosis of breast cancer, but tissue diagnosis pending. Suffered in -hospital right-sided CVA, likely also a consequence of coagulopathy related to metastatic cancer. Continues on full anticoagulation with IV heparin at this time. Palliative medicine consulted to assist patient and her family in determination of goals of care. Summary of palliative recommendations: -Symptom management (Pain/other)- comfortable. Continued management per hospitalist/medical team. Long-term anticoagulation in setting of (probable) cancer-related coagulopathy per oncology. -DPOA/Advanced Directives/POLST- completed formal DPOA documentation today. Copies provided to patient, placed in her chart, and saved in palliative office. At this time patient and her son wish to continue aggressive evaluation and treatment and she remains full code. -Family/emotional support- family support appears good. Palliative medicine will continue to follow and assist in making further arrangements, dependent on needs at time of discharge. -Spiritual support- offered. Patient Goals: 1. Patient and family want to be told the truth about her illness, even if it is unpleasant. 2. Patient and her family would like to be told prognosis when it can be predicted, to better guide treatment decisions. Additional Medical Diagnoses with primary management by Hospitalist team include : #. New right temporal parietal CVA , with partial visual loss and left-sided weakness on exam. Likely secondary to metastatic CA with evidence of disease in the calvarium and lytic lesions of the bone #. Multiple bilateral pulmonary emboli involving lobar pulmonary arteries in the right upper, middle, and lower lobes as well as the left lower lobe with extension into segmental and subsegmental branches. #. Probable Metastatic Breast Cancer. Present on admission. #. Macrocytic anemia with Leukopenia. Present on admission. #. Probable cirrhosis. Based on hepatic imaging. #. Elevated transaminitis. AST 203, ALT 143 on admission. #. Abnormal thyroid function tests. Hypothyroidism versus euthyroid sick syndrome. #. Osteoporosis. #. Depression # Alcoholism Problems: End of Life Preferences Full code Goals of Care She and her son continue to hold for stabilization, completing evaluation and then considering treatment options Disposition To be determined Resuscitation Status Resuscitation Status: CPR: Attempt Resuscitation POLST Updates/Changes Previous POLST?: No . Pain: None Pt History History of Present Illness Per admission H&P: 61 year old female with History of breast cancer s/p mastectomy with post surgical RUE lymphedema who presents to [facility] Emergency department due to respiratory symptoms with elevated D dimer at Urgent Care clinic Two weeks ago the patient was seen at urgent care and was diagnosed with a sinus infection. She was started on antibiotics (Augmentin) and has had progressively worsening shortness of breathe since. Exacerbated with exertion and lifting heavy stuff. Pt was seen at urgent care today c/o multiple vague complaints including fatigue and dyspnea. Lab studies included D-dimer and BNP which were markedly elevated. Called at home and told to go to ER. She also complain of chest tightness with deep inspiration and calf edema. Additionally, she complains of intermittent purple discoloration of fingers and toes, not associated with cold weather. Pt recently started a job in a [employer], which reportedly is harder labor then her previous job, and had a 20 pound weight loss. Pt denies fever, chills, trauma, surgery, immobilization, estrogen replacement. Case discussed with Dr Cohn. Patient had CT confirming Pulmonary embolism. Imaging also confirmed metastatic cancer, new finding as the patient thought she was cancer free from her Breast Cancer. Patient was admitted and treated appropriately for her bilateral pulmonary emboli. She was seen in consultation by oncology and had additional laboratory and imaging studies to help elucidate the etiology of her coagulopathy and abnormality seen on initial imaging. She underwent a percutaneous liver biopsy in attempt to obtain tissue for definitive diagnosis. On 10/22/16 she developed visual disturbance and left-sided weakness and repeat CT scanning revealed evidence of right sided CVA. At this time she continues on heparin anticoagulation and other appropriate medical management, awaiting biopsy results. Palliative medicine was consulted to provide support and assist the patient and her son in determining goals of care. Prior to visiting the patient, I reviewed her records in the EMR in detail. Spoke with her bedside nurse and with her hospitalist. When I arrived, she is resting quietly in bed. Her son Bill is at bedside. She denies any significant distress- says that her dyspnea and chest pain present at time of admission have essentially resolved. She does note some mild left-sided weakness. She is slightly forgetful and confused- for example, she repeats several times that her biopsy was this morning (the weight was actually several days ago). We spoke at length, reviewing her presenting symptoms, initial diagnoses, evaluation to this point, and possibilities for future treatment. I answered questions that they had about her care to this point. Towards the end of our interview, when I asked if she had further questions, she said "why isn't life fair?" Past Medical History Significant PMH Noted: History of stage IIIA ER positive, HER-2 negative right-sided breast cancer in 2001. History of recent sinusitis. 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 She said this was very hard work and while employed there she had lost 20 pounds. She said that her weight loss had stabilized and begun to improve when she went back to the [employer] job. 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 He is her closest son. She wishes him to be POA. He lives near [facility] and is a electrician's helper. As an additional son SAFIA Alvraez who lives in [place] and is en route and has a younger sister Ronni Nino who lives in [place] Her best friend is Li Burns (Jose Armando [employer], noted as next of kin in the Summary section of the EMR-is actually .) Family Members Issues: Her son Neri had numerous questions about coagulation issues, the relationship to her pulmonary emboli and CVA, risks of medications and possible future treatment plans. I deferred all questions regarding cancer therapy to Dr. Leal. Social Support: Good support from local family and friends. She has a cat at home as well as a fish tank. Her friend Li is caring for these. She is active and enjoys crafting- making quilts, stained glass, etc. 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 Living Situation: Lives in her own home alone. Spiritual Support Spiritual Support Raised Taoist but does not attend nondenominational. Already seen by hospital sheltered workshop worker but does not feel particularly inclined to additional visits. Palliative Performance Scale PPS Patient Status: Baseline PPS Ambulation: Full PPS Activity: Normal activity & work PPS Self-Care: Full Self Care PPS Intake: Normal PPS Conscious Level: Full Performance Scale: 100% ADLs ADL Patient Status: Baseline ADL Ambulation: Full ADL Dressing: Full ADL Feeding: Full ADL Hygene/bathing: Full ADL Transfers: Full Allergy Allergies Reviewed: Yes Medications Current Medications: Current Medications Lorazepam 0.5 mg 0.5 mg Q4H PRN IVPUSH Last administered on 10/22/16 15:12; Admin Dose 0.5 MG; Start 10/22/16 at 09:25 Sodium Chloride 1,000 ml @ 100 mls/hr Q10H IV Last administered on 10/22/16 17 :09; Admin Dose 100 MLS/HR; Start 10/22/16 at 16:05; Stop 10/23/16 at 02:04; Status DC Pantoprazole 40 mg DAILYAC IVPUSH Last administered on 10/22/16 17:53; Admin Dose 40 MG; Start 10/22/16 at 16:25 Atorvastatin Calcium 40 mg HS PO Last administered on 10/23/16 05:47; Admin Dose 40 MG; Start 10/22/16 at 21:00 Scheduled PRN Amitriptyline (Amitriptyline) 10 Mg Tablet 10 MG PO HS PRN PRN prn Miscellaneous Medications Fluoxetine (Prozac) 10 Mg Capsule 10 MG PO Objective Findings Exam Vital Sign - Last Date Time Temp Pulse Resp B/P Pulse Ox O2 Delivery O2 Flow Rate FiO2 10/23/16 05:22 36.4 107 18 138/74 96 Room Air Intake and Output 10/22/16 10/22/16 10/23/16 Cumulative From/Thru 15:00 23:00 07:00 10/16/16 17:42 - 10/23/16 05:21 Intake Total 522 ml 1053 ml 8217 ml Output Total 600 ml 470 ml 5873 ml Balance -78 ml 583 ml 2344 ml Intake Oral 400 ml 4776 ml IV Total 122 ml 1053 ml 3441 ml Output Urine Total 600 ml 470 ml 5873 ml # Voids 2 12 # Bowel Movements 0 2 Objective Pleasant woman, lying on her side in bed. Obvious left facial droop. Vital signs noted. Skin is cool and dry. Head and neck exam remarkable for left facial droop is noted. Heart sounds regular, lungs clear anterolaterally. Abdomen nontender. Extremities without pitting edema. Mild weakness of left upper and lower extremities. Lab/Diagnostics Lab and Imaging results reviewed in detail in EMR. Time spent Total time 95 minutes; >50% face to face with patient and family, providing counselling regarding plans and recommendations, and in care coordination with her medical teams. Of the above total time, 20 minutes counseling for advanced care planning with the patient and her son, and in completing POA documentation, etc. copies to: Thierry Cruz MD; Fani Flanagan David F MD Oct 23, 2016 12:24
--- NOTE | 2016-10-23 15:24 | NUR ---
Social Work Continued Discharge Planning: SW spoke to patient and friend at bedside to discuss discharge plan. SW reviewed therapy notes which reflect recommendations for SNF placement. Recommendations discussed with patient and friend Li at bedside. Patient states not wanting to attend rehab. Patient states she to have care and support from friend Li who to provide 24hr care and support. Li confirmed that she will provide 24hr care and support in addition to assistance from son. Patient states being in agreement to [facility] services at discharge. No preferred provider, choice as [facility]. SW to follow up with patient and family pending further clinical course and PT eval. SW to follow. PLAN: Home with family support and 24hr care from friend Li. Patient denied SNF placement at this time. [facility] choice as [facility]. SW will continue to follow with PT notes and patient clinical course. Raine MOREIRA
--- NOTE | 2016-10-23 15:24 | DRSVH ---
Study location field not populated with appropriate location Echocardiogram Report Name: MARVA CHOPRA Study Date: 10/23/2016 Height: 65 in Hospital Weight: 112 lb Gender: Female BSA: 1.5 m2 : 1955 Age: 61 yrs BP: 138/74 mmHg Reason For Study: Pulmonary- Embolism Ordering Physician: ANOMI BOSCH By: Yari Guzmán Referring Physician: Vinh Bailey Interpretation Summary 1. Normal left ventricular size with mildly increased wall thickness and normal systolic function with an estimated EF of 60-65% 2. Normal right ventricular size and systolic function. The estimated RVSP is 24 mm Hg plus the right atrial pressure. 3. Mild to moderate aortic insufficiency There is no old study for comparison Procedure: A two-dimensional transthoracic echocardiogram with color flow and Doppler was performed. The study quality was technically adequate. There is no prior echocardiogram noted for this patient. A saline contrast injection was performed to assess for cardiac shunting. The patient was in sinus tachycardia with heart rates between 110-120 bpm during the exam. Left Ventricle: The left ventricle is normal in size. There is mild concentric left ventricular hypertrophy. Left ventricular systolic function is normal. The ejection fraction is estimated to be 60-65%. No obvious wall motion abnormalities. Diastolic function could not be accurately assessed due to tachycardia. Right Ventricle: The right ventricle is normal in size and function. Atria: The left atrial size is normal. Right atrial size is normal. Injection of saline contrast did not show an interatrial shunt. No color doppler evidence for an ASD. Mitral Valve: Leaflets are thin with normal excusion. Trace to mild mitral regurgitation. Aortic Valve: The aortic valve is trileaflet. The aortic valve opens well. There is mild to moderate aortic regurgitation. Tricuspid Valve: The tricuspid valve is normal. There is mild tricuspid regurgitation. The right ventricular systolic pressure could not be accurately estimated due to limited visualization of the IVC but it is estimated to be between 27-32 mmHg assuming a right atrial pressure of 3-8 mmHg. Right ventricular systolic pressure is estimated to be 24 mmHg plus the clinically estimated CVP which cannot be estimated on this exam. Pulmonic Valve: The pulmonic valve leaflets are thin and pliable; valve motion is normal. There is mild pulmonic regurgitation. Great Vessels: The aortic root is normal size. The ascending aorta is normal in size. The aortic arch is normal in size. Mild pulmonary artery dilation. The IVC is normal in size. Collapse was not well visualized. Pericardium/ Pleura There is no pericardial effusion. There is a left pleural effusion. MMode/2D Measurements & Calculations LVIDd: 3.8 cm RA long axis LVOT diam: 1.9 cm LVIDs: 2.4 cm LA A2 area: 14.1 cm AoV Opening FS: 35.9 % LA A4 area: 13.1 cm RA area EPSS: 0.52 cm LA length (vol) Ao root diam IVSd: 1.1 cm : 11.7 cm LVPWd: 1.1 cm LA vol: 35.6 ml RA vol asc Aorta Diam LA vol index : 28.4 ml RA Ao Arch Diam (Prox IVC diam: 1.8 cm : 18.4 mm2 Trans): 2.6 cm LV coleman. diameter/BSA LV sys. diameter/BSA TAPSE: 1.7 cm (cm/m^2): 2.4 (cm/m^2): 1.6 Doppler Measurements & Calculations Ao V2 max: 109.6 cm/secMV E max josé miguel MV E/A: 0.64 TR max josé miguel Ao max P.8 mmHg : 45.8 cm/sec Med Peak E' José Miguel : 221.9 cm/sec Ao mean P.2 mmHg MV A max josé miguel TR max PG LVOT Max José Miguel : 71.8 cm/sec E/E' med: 7.7 : 23.5 mmHg : 100.2 cm/sec Lat Peak E' José Miguel PA V2 max : 100.0 cm/sec GAUTAM(I,D): 2.2 cm E/E' lat: 9.0 PA mean PG sev ratio: 0.76 E/e' average: 8.4 : 2.1 mmHg AI P1/2t: 282.3 msec MV A dur: 0.11 sec AI dec slope : 366.7 cm/s2c MV dec time: 0.13 sec Ao V2 mean LV V1 max PG PA V2 mean : 86.3 cm/sec : 68.4 cm/sec Ao V2 VTI LV V1 VTI: 14.2 cmPA pr(Accel) : 49.1 mmHg GAUTAM(V,D): 2.6 cm2 GAUTAM indexed to BSA (cm^2/m^2): 1.4 Reading Physician:03:08 PM
--- NOTE | 2016-10-23 15:44 | NUR ---
Partial evaluation completed. Please go to "Notes" then click on "Assessments and Notes" (bottom left corner of screen). Then select appropriate discipline tab on top of screen.
--- NOTE | 2016-10-23 15:48 | DRSVH ---
PROCEDURE: US VENOUS LEG DUPLEX BILATERAL INDICATIONS: PE TECHNIQUE: Real-time imaging, as well as color and pulse Doppler interrogation, were performed of the deep veins of both legs from the inguinal ligament to the popliteal fossa. COMPARISON: None. FINDINGS: Occlusive deep venous thrombosis is present within the left common femoral, superficial fem oral and popliteal veins. Partial thrombus within the posterior tibial veins. No DVT within the rig ht lower extremity. IMPRESSION: 1. Extensive deep venous thrombosis within the left lower extremity. Juhi Loco RN, given results by the cabinetmaker apprentice at 1500 hours on 10/23/2016. Dictated by: Christopher BISHOP Interpreted: Cyndee Powell MD on 10/23/2016 at 15:44 Transcribed by: MARIAELENA on 10/23/2016 at 15:48 Approved by: Cyndee Powell M.D. on 10/23/2016 at 15:54
--- NOTE | 2016-10-23 17:02 | NUR ---
NUTRITION FOLLOW-UP: ASSESS: Pt is a 61yo female admitted for respiratory problems and history of metastatic cancer. Pt reports worsening SOB, fatigue, and dyspnea in the past two weeks. CT scans show likely cirrhosis and metastatic disease to liver, spleen, bones and lymph nodes. Pt reports losing 20 pounds 6 months ago (15% wt. loss x 6 months) but reports wt has stabilized. Wt loss may be greater than stated d/t ascites. Pt reported not being concerned about the wt loss and declined high kcal/protein education. Pt continues to have poor po intake while she has been admitted eating 0-25% of meals now x 4 days. Pt remains alert but appears confused per MD notes. PMHX: Breast cancer Stage III w/chemotherapy, sinusitis, right modified radical mastectomy LABS: Reviewed. MEDS: Reviewed. GI: BM x 2 (10/18) SKIN: Fer[place] 20 CURRENT WT: 50.8 BMI: 18.6 kg/m2 IBW: 56.8 kg (no new wt since admit) DIET: General, PO 0-25 x 4 days. EST. NEEDS: Cancer, possible liver disease, wt loss Kcals: 3613-0907 kcal/day (30-40 kcal/kg BW) Protein: 60-75g (1.2-1.5 g/kg BW) NUTRITION DIAGNOSIS: 1.) Increased nutrient needs related to cancer diagnosis as evidenced by severe wt. loss in last 6 months (15.3%) and variable PO intake.--PERSISTS 2.) Severe protein calorie malnutrition related to comorbities as evidenced by unplanned severe wt. loss in last 6 months and variable PO intake.--PERSISTS 3.) Inadequate oral intake related to unknown etiology as evidenced by po intake < 25% x 4 days. NUTRITION INTERVENTION: 1.) Continue Chocolate Ensure on D tray per pt preference to help ensure adequate nutrition and protein intake. 2.) Continue to monitor for new wt. 3.) Consider nutrition support if pt remain unable to consume sufficient kcals/protein to meet pt est. needs and nutrition support is consistent with pt plan of care. MONITOR / EVAL: PO intake, wt, GI, labs, POC. Will continue to monitor per high nutritional risk guidelines.
--- NOTE | 2016-10-23 19:16 | CCS NOTE ---
[facility] [address] [place] [address], [address] [address] MEDICAL ONCOLOGY OFFICE NOTE PATIENT: MARVA CHOPRA : 1955 MR#: [id number] DATE: 10/17/2016 JOB ID: [id number] DATE: 10/23/2016 HISTORY OF PRESENT ILLNESS: Events over the weekend were reviewed and discussed yesterday on Sunday with the hospitalist team. The patient had a biopsy of the left liver lesion pending pathology mainly to rule out recurrent breast cancer in metastatic setting. Heparin was held that she is receiving for bilateral PE in the pre and post biopsy status. She was started on Coumadin. The INR, however, had not yet reached a therapeutic level. Apparently over the weekend, she developed neurologic deficits with some vision loss and left-sided weakness and had on CT scan findings suggestive for a stroke. I recommended an MRI of the brain with MRI angio both to evaluate the stroke and the extent of it and also rule out the possibility that she might have metastatic disease to the brain. The MRI showed a large surface right CVA of the right middle cerebral artery without evidence of brain metastases. Skull bone lesions have been noted that are part of the overall picture of likely metastatic disease to the bone, but the brain parenchyma did not have brain metastasis. She is still on heparin now and warfarin and has been also started on Plavix. When I visited her today, she is lying down on her right side. Several family and friends are present. EXAMINATION: She is on exam responsive and recognizes me and appears to be oriented. She can move her left arm and left leg in bed but has not been able to walk. There seems to be already some neurologic improvement. Her CT is not affected. ASSESSMENT AND PLAN: A 61-year-old lady with presentation of significant thromboembolic events including bilateral pulmonary embolus and now also evidence of deep venous thrombosis in lower extremity which is likely the source of the pulmonary embolus. CT scan had revealed evidence of a slightly metastatic neoplastic process but tissue confirmation has not been established yet. She has a prior history of node-positive breast cancer 14 years ago. I had a good conversation today with ISAK Burrell who has been following her as primary care and knows the patient very well. The patient has been in denial in regards to her overall problems and apparently has been continuing heavily daily alcohol which would explain her radiographic findings of liver cirrhosis and splenomegaly and her cytopenia associated with that. The biopsy from the left liver lesion obtained is still pending. I contacted Pathology and hopefully we can get some preliminary results by the end of the day tomorrow. The biopsy was done Sunday morning. In the interim. Unfortunately, the patient has developed a large CVA of the right mid cerebral artery associated with left-sided weakness. The left-sided weakness is already getting somewhat better from the comparison of review of records and what I see currently in terms of her left arm and left leg function. This is now making her overall management very concerning with the combination of likely recurrent metastatic disease and having liver cirrhosis with alcoholism and now in addition to venous thrombotic events now also an arterial cerebrovascular accident. I agree with anticoagulation with warfarin to reach a therapeutic goal of INR between 2 and 3. I would be hesitant to combine it with Plavix in the setting of cirrhosis and increased risk of bleeding and would suggest consideration of baby aspirin instead if an anti-platelet therapy is desired regarding the stroke. The echocardiogram showed no abnormalities, although I did not see any mention of a bubble study to rule out a patent foramen ovale to differentiate between a cross-over process of the venous thrombotic event embolizing to the arterial system versus two arterial events de sonia. Her prognosis remains concerning but, again, we are still waiting for pathology results to confirm diagnosis.
--- NOTE | 2016-10-23 20:03 | NUR ---
Restlessness Pt very calm today, nickolas navarro'adia late this morning, use of bed alarm initiated. Pt able to follow commands, responding to questions appropriately. Pt complained of stomach pain, Oxycodone 5mg PO given. Pt was able to walk into the bathroom with SBA, unable to return to the bed, required 2 person full assist, used BSC for the day. Heparin gtt running. Will continue with current plan of care.
[2016-10-23 21:22] VITALS: BP 155/76; PULSE 101; RESP 18; O2SAT 96
[2016-10-23 22:06] LABS: REVERSE TRIIODOTHYRONINE 40 ng/dL (9.2-24.1)
--- NOTE | 2016-10-24 05:39 | NUR ---
Shift report Pleasant pt, able to make needs known. A&O yet forgetful and restless, bed alarm on for pt safety. Heparin drip on, PTT to be drawn every 6 hrs still. Tele NOT on. 1PA due to unsteady gait. BPs to be taken on R ankle. Friend was in early on shift. Needed to encourage pt to stay. Pt talked about wanting to leave and manage medications as an outpatient. Pt slept the rest of shift. PICC in JACE patent. Bed in low position, call light in reach. Will continue with frequent rounding.
[2016-10-24 05:42] VITALS: BP 147/91; PULSE 105; RESP 18; O2SAT 93
[2016-10-24 06:54] LABS: INR 2.41 ratio
[2016-10-24 06:58] LABS: Mean Corpuscular Hemoglobin 36.3 pg (27.0-35.0); Mean Corpuscular Volume 113.2 fL (81-100); Platelet Count 177 bil/L (150-400)
--- NOTE | 2016-10-24 07:31 | NUR ---
Ptt Call from Lab, Ptt - 87.0, heparin gtt decreased 1 unit. Next draw in 6 hrs. Will continue to monitor.
[2016-10-24 08:14] LABS: BASOPHILS % (AUTO) 0 % (0-3); EOSINOPHILS % (AUTO) 1 % (0-5); MONOCYTES % (AUTO) 10 % (4-12); NEUTROPHILS % (AUTO) 75 % (40-74)
[2016-10-24] MEDS: Pantoprazole 4 mg/mL 10 mL Inj IVPUSH SCH (08:49)
[2016-10-24] MEDS: Ondansetron 2 mg/mL 2 mL Inj IVPUSH PRN ×2 (10:45→16:40)
--- NOTE | 2016-10-24 13:11 | PCM.PNMED ---
Subjective Date of Service Oct 24, 2016 Subjective No overnight event. Patient denies any new complaints. Still weakness on the left side. Exam Vital Signs Vital Sign - Last Date Time Temp Pulse Resp B/P Pulse Ox O2 Delivery O2 Flow Rate FiO2 10/24/16 05:42 36.9 105 18 147/91 93 Room Air Intake and Output 10/23/16 10/23/16 10/24/16 Cumulative From/Thru 15:00 23:00 07:00 10/16/16 17:42 - 10/24/16 00:30 Intake Total 500 ml 8717 ml Output Total 700 ml 6573 ml Balance -200 ml 2144 ml Intake Oral 500 ml 5276 ml IV Total 3441 ml Output Urine Total 700 ml 6573 ml # Voids 12 # Bowel Movements 2 Exam General: lying comfortably in bed HEENT: EOMI. Anicteric sclerae, Moist Mucous Membranes Neck: Neck supple with full ROM, no tenderness or stiffness with flexion Chest & Lungs: b/l air sound, no crackles, wheezes, or coarse breathing Cardiovascular: RRR, No Murmurs/Rubs/Gallops Abdomen: Soft, obese, Non-tender, Non-distended, No masses, Normoactive bowel tones, Extremities: no cyanosis/clubbing/edema bilaterally Neurological: alert and oriented x3, moving on all 4 extremities, weakness on the Left side Psych: flat affect. Lab and Diagnostics Result Diagram: 10/24/16 0600 10/24/16 0600 X-Rays, CTs and MRIs CT BRAIN WITHOUT CONTRAST 10/16/16 IMPRESSION: 1. Lytic lesions in the calvarium consistent with osseous metastatic disease. 2. No definite intracranial hemorrhage, mass or mass effect. If there is persistent clinical suspicion for intracranial metastatic disease, recommend further evaluation with a contrast enhanced brain MRI. Dictated by: Michael Garnica M.D. on 10/16/2016 at 21:38 CT ANGIO CHEST PULMONARY EMBOLISM 10/16/16 IMPRESSION: 1. Multiple bilateral pulmonary emboli involving lobar pulmonary arteries in the right upper, middle, and lower lobes as well as the left lower lobe with extension into segmental and subsegmental branches. No definite evidence of right heart strain. 2. Findings consistent with diffuse metastatic disease including mediastinal lymphadenopathy, multiple hepatic mass lesions, splenic mass, mesenteric lymphadenopathy, and sclerotic bone lesions. 3. Compression fractures of T7 and T10 vertebral bodies as described without associated spinal canal narrowing. The fractures are likely pathologic secondary to metastatic disease. 4. Small amount of ascites within the visualized abdomen. Findings discussed with Dr. Cohn on 10/16/16 at 8:55 PM. Dictated by: Michael Garnica M.D. on 10/16/2016 at 21:05 PROCEDURE: CT ABDOMEN AND PELVIS WITH CONTRAST ([id number]) IMPRESSION: 1. Cirrhosis, and portal hypertension, associated with splenomegaly, and small amount of ascites. 2. Moderate sized splenic infarct. 3. The multifocal ill-defined hepatic hypodense lesions are not definitively malignant, and may represent an atypical appearance of fatty infiltration, and/ or hepatic infarcts. Liver protocol MRI with and without intravenous contrast may be helpful for further assessment. 4. Cholelithiasis. Thickened gallbladder wall is present, which may indicate cholecystitis versus sequelae secondary to cirrhosis/portal hypertension. 5. Multifocal lucencies within the lumbar sacral spine and pelvis, and left posterior acetabular sclerotic density. New, mild L3 wedging associated with L3 lucent lesion. Findings could indicate bony metastatic disease; whole-body bone scan recommended for further assessment. 6. Increased, mild retroperitoneal lymph node enlargement; findings could be reactive (e.g., secondary to cirrhosis), or secondary to early metastatic disease; followup CT imaging is recommended in 1-3 months, as clinically warranted. 7. Findings and recommendations discussed with Dr. Pemberton on 10.17.16 at 1615 hrs. Dictated by: Manuel Pate M.D. on 10/17/2016 at 16:25 PROCEDURE: CT BRAIN WITHOUT CONTRAST IMPRESSION: 1. Large right watershed distribution infarct as described above. No hemorrhagic transformation or midline shift. This finding was discussed with Dr. Davies at 10:03 AM on 10/22/16. 2. Multiple calvarial lytic lesions redemonstrated consistent with metastatic disease. Dictated by: Macie Peterson M.D. on 10/22/2016 at 9:59 PROCEDURE: MRI STROKE PROTOCOL FINDINGS: IMPRESSION: BRAIN MRI: 1. Large area of acute ischemia involving the right parietal-temporal- occipital region. There is sparing of the right frontal lobe. 2. Small areas of acute ischemia involving the right cerebellar hemisphere. 3. No acute hemorrhage or hemorrhagic conversion within the brain. 4. No parenchymal masses or suspicious enhancement. 5. Moderate maxillary sinus disease. BRAIN MR ANGIOGRAM: 1. There appears to be occlusion of one of the more of the posterior distal branches of the right middle cerebral artery, correlating with the large area of ischemia involving the right osrhevog-ssalpsec-gaqrqvzrq region. The main portion of the right middle cerebral artery is patent and the anterior branches of the right middle cerebral artery are also patent. 2. The posterior circulation is within normal limits. NECK MR ANGIOGRAM: 1. Nondiagnostic evaluation of the carotid arteries related to severe motion. No complete occlusions involving the vertebral arteries or carotid arteries are evident. However, this examination is nondiagnostic for evaluation of areas of narrowing, occlusion, or aneurysm. 2. Moderate-sized bilateral pleural effusions (right greater than left). The estimate of stenosis included in the report of the imaging study was calculated using the NASCET method Dictated by: Brendan Grimaldo M.D. on 10/22/2016 at 15:02 Cardiac Echo Impressions Echocardiogram Report Interpretation Summary 1. Normal left ventricular size with mildly increased wall thickness and normal systolic function with an estimated EF of 60-65% 2. Normal right ventricular size and systolic function. The estimated RVSP is 24 mm Hg plus the right atrial pressure. 3. Mild to moderate aortic insufficiency There is no old study for comparison Assessment & Plan Patient is a 61-year-old right handed woman with history of breast cancer 12 years ago prevent presents with weakness and dyspnea on exertion noted to have pulmonary embolism, new right temporal parietal CVA and DVT of LLE. #. New right temporal parietal CVA , with partial visual loss and left-sided weakness on exam. Likely secondary to metastatic CA with evidence of disease in the calvarium and lytic lesions of the bone -MRI demonstrate multiple embolic strokes, largest is located parietal-temporal- occipital region. -Echo with bubble, Us venous lower leg duplex pending -ASA 81mg and atorvastatin added. #. Multiple bilateral pulmonary emboli involving lobar pulmonary arteries in the right upper, middle, and lower lobes as well as the left lower lobe with extension into segmental and subsegmental branches. Present on admission. NO indications for TPA as there was no e/o right heart strain on CT scan. Likely 2/ 2 Malignancy, with no recent travels, surgeries or contraceptives. No family history of thrombophilia. - Lovenox therapeutic (preferred anticoagulation for Pulmonary embolism with Malignancy). - INR remains therapeutic today, Pharmacy managing dosing - Repeat INR in AM - Will d/c patient home on warfarin. #. Metastatic Breast Cancer. Present on admission. Based on findings in chest CT angiogram, patient was informed of likely metastatic disease to liver spleen bones and lymph nodes. Subsequent abdominal and imaging cast doubt on neoplastic disease of liver and spleen. Bone lesions seem to be a progression of prior findings observed on CT scan in 10/2015. Compression fracture of spine may be osteoporosis, for which the patient has a prior diagnosis. Adenopathy is of uncertain cause. -Oncology Dr. Leal following. She is most likely to received hormone therapy, probably not chemo given deconditioned state however. -Palliative care consult Polst form to be filled #. Macrocytic anemia with Leukopenia. Present on admission. Consider alcohol bone marrow toxicity versus myelocystic disease. - Iron studies Vitamin B and Folate levels does not indicate deficiency - Hematology/oncology consult appreciated #. Probable cirrhosis. Based on hepatic imaging. History is positive for regular consumption of 2-3 alcohol drinks per day per patient. No prior clinical diagnosis diagnosis. - Follow CMP periodically - Discussed alcohol cessation with patient the patient admits to drinking at least 2 hard on alcohol beverages per day. - Plan referral for appropriate hepatic follow-up, depending on overall health picture #. Elevated transaminitis. AST 203, ALT 143 on admission. Hepatic imaging suggests cirrhosis but possibly also nodular disease. - Hepatitis panel negative. LFT consistent with ETOH abuse and malignancy #. Abnormal thyroid function tests. Hypothyroidism versus euthyroid sick syndrome. Unclear whether this is symptomatic, in setting of multiple other medical issues. - Repeat tests with reverse T4 - Consider treatment as indicated #. Osteoporosis. With possible pathological fractures, possibly secondary to metastatic disease. - Plan to continue her chronic Fosamax therapy #. Depression - continue Prozac # Alcoholism -May need CIWA protocol - Acetaminophen as needed for mild pain/fever/headache - Bowel regimen as needed - Antiemetic as needed Disposition: Will d/c home tomorrow. VTE Prophylaxis: Other (heparin drip and INR almost therapeutic on warfarin) VTE Mechanical Devices: Venous Foot Pump Resuscitation Status: CPR: Attempt Resuscitation Attending Statement The patient was seen and examined together with Dr. Kel Ordaz on 10/24/2016 and I have agree with the assessment and plan of care as noted above. Kel Ordaz DO Oct 24, 2016 13:11 George Adamson MD Oct 24, 2016 15:15
[2016-10-24 13:24] VITALS: BP 139/69; PULSE 102; RESP 18; O2SAT 100
--- NOTE | 2016-10-24 15:02 | PCM.PHAPRO ---
Progress Elevated D dimer with respiratory symptoms WARFARIN DOSING PER PHARMACY Indication: PE Treatment Home dose: New start INR Goal: 2-3 Admit dx: PE metastatic CA Pancytopenia DI: N/A Additional Anticoagulation: Heparin Drip for bridging Lab Date Result Dose: INR 10/18/16 1.12 HOLD INR 10/19/16 1.10 HOLD INR 10/20/16 1.11 5 MG INR 10/21/16 1.07 5 MG INR 10/22/16 1.94 HOLD INR 10/23/16 2.95 HOLD INR 10/24/16 2.41 Note: - Therapeutic INR following held doses for rapid increase in level. - Will restart with warfarin 2 mg tonight. - Will d/c heparin gtt with therapeutic level for 24 hrs. - Pharmacy will continue to monitor INR/CBC/signs and symptoms of bleeding Babak Lyons, PharmD Babak Lyons Oct 24, 2016 15:02
--- NOTE | 2016-10-24 16:00 | NUR ---
Constipation/nausea Pt has not had a BM for several days. Reports is very concerned about not being able to make it to the bathroom; therefore has been declining offers of meds. Reassured pt the staff will be available to assist to the BR as needed. This RN educated pt regarding nausea as it relates to possible cause of constipation. Pt agreed to try Miralax, has senna earlier in the AM. Family is visiting at bedside, will continue to monitor.
--- NOTE | 2016-10-24 18:33 | PCM.PNPALL ---
Date of Service Oct 24, 2016 Date of Hospital Admission: Oct 17, 2016 at 00:29 Date of Palliative Consult: Oct 23, 2016 Palliative Care Recommendation 61-year-old female admitted with finding of multiple bilateral pulmonary emboli after presenting with dyspnea and chest pain. Evaluation has shown widespread abnormalities, probably consistent with metastatic disease, probably related to her prior diagnosis of breast cancer, but tissue diagnosis pending. Suffered in -hospital right-sided CVA, likely also a consequence of coagulopathy related to metastatic cancer. Continues on full anticoagulation with IV heparin at this time. Palliative medicine consulted to assist patient and her family in determination of goals of care. Summary of palliative recommendations: Reviewed concerns for family re going home vs their preference for SNF with SS/ CM. Will review this again with patient and family- including son tomorrow. Will also need discussion re ? ETOH treatment Conference with Dr. Leal tomorrow to establish plan of care. -Symptom management (Pain/other)- comfortable. Continued management per hospitalist/medical team. Long-term anticoagulation in setting of (probable) cancer-related coagulopathy per oncology. -DPOA/Advanced Directives/POLST- completed formal DPOA documentation today. Copies provided to patient, placed in her chart, and saved in palliative office. At this time patient and her son wish to continue aggressive evaluation and treatment and she remains full code. -Family/emotional support- family support appears good. Palliative medicine will continue to follow and assist in making further arrangements, dependent on needs at time of discharge. -Spiritual support- offered. Patient Goals: 1. Patient and family want to be told the truth about her illness, even if it is unpleasant. 2. Patient and her family would like to be told prognosis when it can be predicted, to better guide treatment decisions. Additional Medical Diagnoses with primary management by Hospitalist team include : #. New right temporal parietal CVA , with partial visual loss and left-sided weakness on exam. Likely secondary to metastatic CA with evidence of disease in the calvarium and lytic lesions of the bone #. Multiple bilateral pulmonary emboli involving lobar pulmonary arteries in the right upper, middle, and lower lobes as well as the left lower lobe with extension into segmental and subsegmental branches. #. Probable Metastatic Breast Cancer. Present on admission. #. Macrocytic anemia with Leukopenia. Present on admission. #. Probable cirrhosis. Based on hepatic imaging. #. Elevated transaminitis. AST 203, ALT 143 on admission. #. Abnormal thyroid function tests. Hypothyroidism versus euthyroid sick syndrome. #. Osteoporosis. #. Depression # Alcoholism--consider thiamine # cholelithiasis- difficult to assess if symptoms but doubt is cause of elevated transaminases. Problems: End of Life Preferences Full code Goals of Care She and her son continue to hold for stabilization, completing evaluation and then considering treatment options Disposition To be determined Resuscitation Status Resuscitation Status: CPR: Attempt Resuscitation POLST Updates/Changes Previous POLST?: No . Symptom management: Drowsiness/sleepiness, Delirium Palliative Subjective Brief History 61 yo with hx of breast CA ER/IL + but HER2 neg with R mast in 2001 and followup rad tx and chemo. She dropped follow up thereafter for the most part. She presented to ER with SOB and dx PE bilateral and LLE DVT. While hospitalized she suffered a R brain CVA. She has diffuse bone lesions and multiple hepatic lesions. She has a splenic lesion that may be mass or infarct and mediastinal and mesenteric lymphadenopathy. She has had increasing back pain for the past 4-6 months and weight loss of 20# On imaging she has diffuse metastatic ds- liver, bone with pathological comp fx of L3, T7 and T10. She has hx of alcoholism now with documented cirrhosis and portal HTN, hepatosplenomegaly and small amt of ascites. She otherwise has hx of HTN, normal ECHO. Patient/Family Concerns Sister and brother concerned due to increasing agitation and confusion today. Also had a bad w/e but they thought that might be ETOH withdrawal. Subjective Pt just given lorazepam IV for agitation and very somnolent. Comfortable. She only states she wants to go home. Palliative Performance Scale PPS Patient Status: Baseline PPS Ambulation: Full PPS Activity: Normal activity & work PPS Self-Care: Full Self Care PPS Intake: Normal PPS Conscious Level: Full Performace Scale: 100% ADLs ADL Patient Status: Baseline ADL Ambulation: Full ADL Dressing: Full ADL Feeding: Full ADL Hygene/bathing: Full ADL Transfers: Full Responsive Patient Symptoms Pain (current): Moderate (back pain and R frontal pain (bone mets)) Drowsiness/Sleepiness: Moderate Objective Findings Exam Vital Sign - Last Date Time Temp Pulse Resp B/P Pulse Ox O2 Delivery O2 Flow Rate FiO2 10/24/16 13:24 36.7 102 18 139/69 100 Room Air Intake and Output 110/23/16 10/24/16 Cumulative From/Thru 15:00 23:00 07:00 10/16/16 17:42 - 10/24/16 00:30 Intake Total 500 ml 8717 ml Output Total 700 ml 6573 ml Balance -200 ml 2144 ml Intake Oral 500 ml 5276 ml IV Total 3441 ml Output Urine Total 700 ml 6573 ml # Voids 12 # Bowel Movements 2 General: Chemically sedated Lungs: Normal Air Movement Abdomen: Soft Lab/Diagnostics Lab and Imaging results reviewed in detail in EMR. abnormal LFT signif elevation of tumor markers Path not posted yet- bs liver 10/20/16 Patient/Family Conference Members Present Family Members Present sister Teressa and brother julesw in from [place] Discussion/Goals of Care Discussion FAMILY UNDERSTANDING OF DISEASE: Fairly is well versed in present issues- new dx metastatic ds-presumed breast but await path, cirrhosis, ETOH They indicate meeting with Dr. Leal tomorrow at 430 to review path and options. Pt had reiterated yest and today that she wants to go home. Her family does not feel this safe- her friend would not assist her in rehab of L hemiparisis and the ETOH may be a problem Family believes SNF for strengthening and then home is more stable. This would also help in monitoring of anticoag and clinical status. Son is DPOAHC and also will have the most sway with his mother. At this point her medication and possibly mild delirium puts her in a compromised state to decide. Unclear if pt recognizes her deficit. Brother with hx of 3 malignancies- melanoma, Burkitt's Lymphoma and recently prostate CA-states neg for oncogene DISEASE PROGRESSION/EVIDENCE OF DECLINE: SYMPTOM BURDEN: GOALS: To be back home with some independence HOPES/WORRIES: Will be interested in treating her malignancy with chemo and has stated that to her sister. FAMILY WISHES/VALUES: Do you want to be told truth about his illness, even if unpleasant? Does family want to know prognosis when it can be predicted, to better guide treatment decisions? What is quality of life for the patient: to be able to interact with their loved ones and friends, to travel, not to be bedbound, to be independent in taking care of themselves: Would patient choose quality of life over quantity of life? Would comfort care be more important than being awake and alert? If patient is no longer alert and aware because of their illness, would you choose comfort for them? Palliative Care counselled: Time spent Total time 45 minutes; >50% face to face with patient and/or family, providing counselling regarding plans and recommendations, and in care coordination with his/her medical teams. I also spent an additional [ ] minutes counseling for advanced care planning with the patient/the patients family/the surrogate decision maker. Jessica Menchaca MD Oct 24, 2016 18:33
[2016-10-24] MEDS: MetoCLOpramide 5 mg/mL 2 mL Inj IVPUSH PRN (20:36)
[2016-10-24 20:56] VITALS: BP 175/78; PULSE 109; RESP 18; O2SAT 98
--- NOTE | 2016-10-24 23:57 | CCS NOTE ---
[facility] [address], [address] [address] MEDICAL ONCOLOGY OFFICE NOTE PATIENT: MARVA CHOPRA : 1955 MR#: [id number] DATE: 10/17/2016 JOB ID: [id number] DATE: 10/24/2016 SUBJECTIVE: There has been no significant change overnight. The patient's INR has become now therapeutic with 2.3. Her future [id number] is present at bedside currently. The lab studies otherwise show a rise of Bilirubin to 1.5 and further elevation of transaminases. EXAMINATION: On exam, she is making a more passive impression, but answers questions adequately. Otherwise, no significant change. ASSESSMENT AND PLAN: A 51-year-old lady with severe thromboembolic events as summarized in my note yesterday. Unfortunately, her pathology report is still not back from the liver biopsy, after our attempts later this afternoon with calling the [facility]. This will be attempted tomorrow again to speak with assigned pathologist. Overall, also she has deteriorated, given the addition of multiple coexisting problems with liver cirrhosis, thromboembolic event and now stroke and suspected recurrent metastatic breast cancer. AILEEN
[2016-10-25] MEDS: Ondansetron 2 mg/mL 2 mL Inj IVPUSH PRN ×3 (02:40→21:09)
[2016-10-25 02:53] VITALS: BP 164/91; PULSE 116; O2SAT 96
[2016-10-25 05:18] VITALS: BP 150/75; PULSE 116; RESP 18; O2SAT 95
[2016-10-25] MEDS: MetoCLOpramide 5 mg/mL 2 mL Inj IVPUSH PRN (05:27)
--- NOTE | 2016-10-25 06:42 | NUR ---
Nausea/Pain Pt c/o intermittent nausea, no vomitus,abdominal pain 4-5/10,abdomen very distended, tenderness upper quadrant,BT active. Zofran and Reglan given alternatively, Oxycodone given ,warm pack applied at abdomen,symptoms improved and pt sleeping afterwards.
[2016-10-25 07:24] LABS: INR 2.69 ratio
[2016-10-25] MEDS: Pantoprazole 4 mg/mL 10 mL Inj IVPUSH SCH (09:24)
--- NOTE | 2016-10-25 09:27 | PCM.PALLBR ---
Palliative Care Recommendation 61-year-old female admitted with finding of multiple bilateral pulmonary emboli after presenting with dyspnea and chest pain. Evaluation has shown widespread abnormalities, probably consistent with metastatic disease, probably related to her prior diagnosis of breast cancer, but tissue diagnosis pending. Suffered in -hospital right-sided CVA, likely also a consequence of coagulopathy related to metastatic cancer. Continues on full anticoagulation with IV heparin at this time. Palliative medicine consulted to assist patient and her family in determination of goals of care. Summary of palliative recommendations: 10/25/16 Patient's mentation much improved this PM. Interested in rehab. Family discussed path and treatment options with Dr. Leal-with plan for treatment that will be started through office. Follow up course will depend on how she responds both with respect to the treatment and mentally/physically to rehab. She is not in position to decide on ETOH treatment options. Will review this and GOC tomorrow AM Family is in support of SNF--arrangements proceeding through CM Reviewed concerns for family re going home vs their preference for SNF with SS/ CM. Will review this again with patient and family- including son tomorrow. Will also need discussion re ? ETOH treatment Conference with Dr. Leal tomorrow to establish plan of care. -Symptom management (Pain/other)- comfortable. Continued management per hospitalist/medical team. Long-term anticoagulation in setting of (probable) cancer-related coagulopathy per oncology. -DPOA/Advanced Directives/POLST- completed formal DPOA documentation today. Copies provided to patient, placed in her chart, and saved in palliative office. At this time patient and her son wish to continue aggressive evaluation and treatment and she remains full code. -Family/emotional support- family support appears good. Palliative medicine will continue to follow and assist in making further arrangements, dependent on needs at time of discharge. -Spiritual support- offered. Patient Goals: 1. Patient and family want to be told the truth about her illness, even if it is unpleasant. 2. Patient and her family would like to be told prognosis when it can be predicted, to better guide treatment decisions. Additional Medical Diagnoses with primary management by Hospitalist team include : #. New right temporal parietal CVA , with partial visual loss and left-sided weakness on exam. Likely secondary to metastatic CA with evidence of disease in the calvarium and lytic lesions of the bone #. Multiple bilateral pulmonary emboli involving lobar pulmonary arteries in the right upper, middle, and lower lobes as well as the left lower lobe with extension into segmental and subsegmental branches. #. Probable Metastatic Breast Cancer. Present on admission. #. Macrocytic anemia with Leukopenia. Present on admission. #. Probable cirrhosis. Based on hepatic imaging. #. Elevated transaminitis. AST 203, ALT 143 on admission. #. Abnormal thyroid function tests. Hypothyroidism versus euthyroid sick syndrome. #. Osteoporosis. #. Depression # Alcoholism--consider thiamine # cholelithiasis- difficult to assess if symptoms but doubt is cause of elevated transaminases. Problems: End of Life Preferences Full code Goals of Care She and her son continue to hold for stabilization, completing evaluation and then considering treatment options Disposition To be determined Resuscitation Status Resuscitation Status: CPR: Attempt Resuscitation POLST Updates/Changes Previous POLST?: No Total time 30 minutes; >50% face to face with patient and/or family, providing counselling regarding plans and recommendations, and in care coordination with his/her medical teams. I also spent an additional [ ] minutes counseling for advanced care planning with the patient/the patients family/the surrogate decision maker. Palliative Brief Note Date of Service Oct 25, 2016 . Patient remains confused this AM. Asks for help to go to [facility]. Knows she is in hospital--OX2 c/o nausea-no vomiting. She has no idea as to last BM--was 6-7 days ago per nsg note but pt states maybe 2 days ago. Denies POLLACK. Has chronic back pain. O: confused, curls up in bed then bit agitated wanting to get out of bed. HRR mildly distended abdomen, nontender, palpable liver edge RUE lymphedema, both arms with superficial ecchymoses LE look edematous but only trace this evening mentation is clear and she is visiting with her family. labs- pancytopenia ammonia slightly elevated path back this afternoon from liver bx- with poorly diff carcinoma c/w metastatic breast Jessica Menchaca MD Oct 25, 2016 09:27
--- NOTE | 2016-10-25 11:04 | PATH ---
SURGICAL PATHOLOGY Attending Physician:Thierry Mensah CASE STATUS: Signed Out PATIENT NAME: MARVA WHITTEN PID: [id number] : 1955 DATE COLLECTED:10/20/2016 22:23 SPECIMEN: Liver, Needle Biopsy CLINICAL HISTORY: LIVER BIOPSY FINAL DIAGNOSIS: Liver Needle Core Biopsy: Metastatic poorly-differentiated carcinoma consistent with breast origin (see microscopic description). The results of this evaluation are discussed by telephone with Dr Leal on 10/25/16. This case is reviewed by Dr Rick Castelan who agrees with the diagnosis. ICD10 C78.7 GROSS DESCRIPTION: The specimen is received in one formalin filled container labeled with the patient's name, sublabeled "liver" and consists of 3- cylindrical shaped portions of tissue which aggregate to 1.3 x 0.2 x 0.1 CM. Specimen is entirely submitted in one cassette. 10/21/2016 DAC MICRO DESCRIPTION: Sections are of needle core biopsy of liver. Portions of the liver have been replaced by very poorly differentiated carcinoma. The tumor cells are of small to intermediate size with irregular hyperchromatic nuclei. They are poorly cohesive with no evidence of organoid differentiation. Immunohistochemistry is performed in order to better identify the tumor cell type. Immunohistochemistry Results: 1. Cytokeratin 7: Tumor cells positive. 2. GATA3: Tumor cells positive. 3. Estrogen Receptor: Tumor cells positive. 4. Progesterone receptor: Tumor cells negative. 5. HER-2/bobby: Tumor cells negative. Interpretation: This immunophenotype is consistent with metastatic carcinoma from the patient's previously diagnosed breast carcinoma from 2001 ([id number] and [id number]). ICD-9 CODES: CPT CODES: 1: 54635, 51764, 65633, 53366, 99143, 84157 Electronically Signed Out Jeff Ramirez MD [facility] [address], [place] [address] Technical component performed at [facility], [address], [place], [address]
--- NOTE | 2016-10-25 11:21 | PCM.PNMED ---
Subjective Date of Service Oct 25, 2016 Subjective Medically stable, no events overnight. Though, mentation is a bit "off" per family. Sister states that she had made weird phone calls. Patient denies any abdominal pain, nausea, or vomiting. She reports to nursing of a bowel movement 2 days ago. Exam Vital Signs Vital Sign - Last Date Time Temp Pulse Resp B/P Pulse Ox O2 Delivery O2 Flow Rate FiO2 10/25/16 05:18 36.6 116 18 150/75 95 Room Air Intake and Output 10/24/16 10/24/16 10/25/16 Cumulative From/Thru 15:00 23:00 07:00 10/16/16 17:42 - 10/25/16 06:31 Intake Total 200 ml 200 ml 9117 ml Output Total 300 ml 225 ml 7098 ml Balance -100 ml -225 ml 200 ml 2019 ml Intake Oral 200 ml 200 ml 5676 ml IV Total 3441 ml Output Urine Total 300 ml 225 ml 7098 ml # Voids 2 14 # Bowel Movements 0 2 Exam General: lying comfortably in bed HEENT: EOMI. Anicteric sclerae, Moist Mucous Membranes Neck: Neck supple with full ROM, no tenderness or stiffness with flexion Chest & Lungs: b/l air sound, no crackles, wheezes, or coarse breathing Cardiovascular: RRR, No Murmurs/Rubs/Gallops Abdomen: Soft, obese, Non-tender, Non-distended, No masses, Normoactive bowel tones, Extremities: Right hand edematous, b/l lower leg mild pitting edema Neurological: alert and oriented x3, moving on all 4 extremities, weakness on the Left side, Left pronator drift, no liver flap Psych: flat affect. fatigue IVs and Medications Medications Reviewed: Medications were reviewed in detail Lab and Diagnostics Result Diagram: 10/24/16 0600 10/24/16 0600 X-Rays, CTs and MRIs CT BRAIN WITHOUT CONTRAST 10/16/16 IMPRESSION: 1. Lytic lesions in the calvarium consistent with osseous metastatic disease. 2. No definite intracranial hemorrhage, mass or mass effect. If there is persistent clinical suspicion for intracranial metastatic disease, recommend further evaluation with a contrast enhanced brain MRI. Dictated by: Michael Garnica M.D. on 10/16/2016 at 21:38 CT ANGIO CHEST PULMONARY EMBOLISM 10/16/16 IMPRESSION: 1. Multiple bilateral pulmonary emboli involving lobar pulmonary arteries in the right upper, middle, and lower lobes as well as the left lower lobe with extension into segmental and subsegmental branches. No definite evidence of right heart strain. 2. Findings consistent with diffuse metastatic disease including mediastinal lymphadenopathy, multiple hepatic mass lesions, splenic mass, mesenteric lymphadenopathy, and sclerotic bone lesions. 3. Compression fractures of T7 and T10 vertebral bodies as described without associated spinal canal narrowing. The fractures are likely pathologic secondary to metastatic disease. 4. Small amount of ascites within the visualized abdomen. Findings discussed with Dr. Cohn on 10/16/16 at 8:55 PM. Dictated by: Michael Garnica M.D. on 10/16/2016 at 21:05 PROCEDURE: CT ABDOMEN AND PELVIS WITH CONTRAST ([id number]) IMPRESSION: 1. Cirrhosis, and portal hypertension, associated with splenomegaly, and small amount of ascites. 2. Moderate sized splenic infarct. 3. The multifocal ill-defined hepatic hypodense lesions are not definitively malignant, and may represent an atypical appearance of fatty infiltration, and/ or hepatic infarcts. Liver protocol MRI with and without intravenous contrast may be helpful for further assessment. 4. Cholelithiasis. Thickened gallbladder wall is present, which may indicate cholecystitis versus sequelae secondary to cirrhosis/portal hypertension. 5. Multifocal lucencies within the lumbar sacral spine and pelvis, and left posterior acetabular sclerotic density. New, mild L3 wedging associated with L3 lucent lesion. Findings could indicate bony metastatic disease; whole-body bone scan recommended for further assessment. 6. Increased, mild retroperitoneal lymph node enlargement; findings could be reactive (e.g., secondary to cirrhosis), or secondary to early metastatic disease; followup CT imaging is recommended in 1-3 months, as clinically warranted. 7. Findings and recommendations discussed with Dr. Pemberton on 10.17.16 at 1615 hrs. Dictated by: Manuel Pate M.D. on 10/17/2016 at 16:25 PROCEDURE: CT BRAIN WITHOUT CONTRAST IMPRESSION: 1. Large right watershed distribution infarct as described above. No hemorrhagic transformation or midline shift. This finding was discussed with Dr. Davies at 10:03 AM on 10/22/16. 2. Multiple calvarial lytic lesions redemonstrated consistent with metastatic disease. Dictated by: Macie Peterson M.D. on 10/22/2016 at 9:59 PROCEDURE: MRI STROKE PROTOCOL FINDINGS: IMPRESSION: BRAIN MRI: 1. Large area of acute ischemia involving the right parietal-temporal- occipital region. There is sparing of the right frontal lobe. 2. Small areas of acute ischemia involving the right cerebellar hemisphere. 3. No acute hemorrhage or hemorrhagic conversion within the brain. 4. No parenchymal masses or suspicious enhancement. 5. Moderate maxillary sinus disease. BRAIN MR ANGIOGRAM: 1. There appears to be occlusion of one of the more of the posterior distal branches of the right middle cerebral artery, correlating with the large area of ischemia involving the right qbhiorcw-ayyaeiec-roqzxmsxv region. The main portion of the right middle cerebral artery is patent and the anterior branches of the right middle cerebral artery are also patent. 2. The posterior circulation is within normal limits. NECK MR ANGIOGRAM: 1. Nondiagnostic evaluation of the carotid arteries related to severe motion. No complete occlusions involving the vertebral arteries or carotid arteries are evident. However, this examination is nondiagnostic for evaluation of areas of narrowing, occlusion, or aneurysm. 2. Moderate-sized bilateral pleural effusions (right greater than left). The estimate of stenosis included in the report of the imaging study was calculated using the NASCET method Dictated by: Brendan Grimaldo M.D. on 10/22/2016 at 15:02 Cardiac Echo Impressions Echocardiogram Report Interpretation Summary 1. Normal left ventricular size with mildly increased wall thickness and normal systolic function with an estimated EF of 60-65% 2. Normal right ventricular size and systolic function. The estimated RVSP is 24 mm Hg plus the right atrial pressure. 3. Mild to moderate aortic insufficiency There is no old study for comparison Assessment & Plan Patient is a 61-year-old right handed woman with history of breast cancer 12 years ago prevent presents with weakness and dyspnea on exertion noted to have pulmonary embolism, new right temporal parietal CVA and DVT of LLE. #. New right temporal parietal CVA , with partial visual loss and left-sided weakness on exam. Likely secondary to metastatic CA with evidence of disease in the calvarium and lytic lesions of the bone -MRI demonstrate multiple embolic strokes, largest is located parietal-temporal- occipital region. -Echo with bubble, Us venous lower leg duplex pending -ASA 81mg and atorvastatin added. #. Multiple bilateral pulmonary emboli involving lobar pulmonary arteries in the right upper, middle, and lower lobes as well as the left lower lobe with extension into segmental and subsegmental branches. Present on admission. NO indications for TPA as there was no e/o right heart strain on CT scan. Likely 2/ 2 Malignancy, with no recent travels, surgeries or contraceptives. No family history of thrombophilia. - Lovenox therapeutic (preferred anticoagulation for Pulmonary embolism with Malignancy). - INR remains therapeutic today, Pharmacy managing dosing - Repeat INR in AM - Will d/c patient home on warfarin. #. Metastatic Breast Cancer. Present on admission. Based on findings in chest CT angiogram, patient was informed of likely metastatic disease to liver spleen bones and lymph nodes. Subsequent abdominal and imaging cast doubt on neoplastic disease of liver and spleen. Bone lesions seem to be a progression of prior findings observed on CT scan in 10/2015. Compression fracture of spine may be osteoporosis, for which the patient has a prior diagnosis. Adenopathy is of uncertain cause. -Oncology Dr. Leal following. She is most likely to received hormone therapy, probably not chemo given deconditioned state however. -Palliative care consult Polst form to be filled #. Macrocytic anemia with Leukopenia. Present on admission. Consider alcohol bone marrow toxicity versus myelocystic disease. - Iron studies Vitamin B and Folate levels does not indicate deficiency - Hematology/oncology consult appreciated #. Probable cirrhosis. Based on hepatic imaging. History is positive for regular consumption of 2-3 alcohol drinks per day per patient. No prior clinical diagnosis diagnosis. - Follow CMP periodically - Discussed alcohol cessation with patient the patient admits to drinking at least 2 hard on alcohol beverages per day. - Plan referral for appropriate hepatic follow-up, depending on overall health picture #. Elevated transaminitis. AST 203, ALT 143 on admission. Hepatic imaging suggests cirrhosis but possibly also nodular disease. - Hepatitis panel negative. LFT consistent with ETOH abuse and malignancy - Added spironolactone given increase acetics fluids. potential portal hypertension - Us abdomen. - Also ordered NH3 to determined baseline #. Abnormal thyroid function tests. Hypothyroidism versus euthyroid sick syndrome. Unclear whether this is symptomatic, in setting of multiple other medical issues. - Repeat tests with reverse T4 - Consider treatment as indicated #. Osteoporosis. With possible pathological fractures, possibly secondary to metastatic disease. - Plan to continue her chronic Fosamax therapy #. Depression - continue Prozac # Alcoholism -May need CIWA protocol -Thiamine daily - Acetaminophen as needed for mild pain/fever/headache - Bowel regimen as needed - Antiemetic as needed Disposition: Discharge pending placement to SNF, likely tomorrow or the following. VTE Prophylaxis: Other (heparin drip and INR almost therapeutic on warfarin) VTE Mechanical Devices: Venous Foot Pump Resuscitation Status: CPR: Attempt Resuscitation Attending Statement Patient was seen and evaluated with Dr. Kel Ordaz on 10/25/2016. I agree with the findings, assessment and plan of care as noted above. Kel Ordaz DO Oct 25, 2016 10:30 George Adamson MD Oct 26, 2016 13:06
--- NOTE | 2016-10-25 14:06 | NUR ---
Social Work-readiness d/c planning: Data:EMR Reviewed. Pt is on day 8 of hospitalization for PE per H&P. Pt is not medically stable, anticipate 1-2 days. PT continues to recommend SNF for pt. CARLO spoke with pt and family: sister Ronni [phone] and brother SAFIA who have been in communication with son Neri and they are in agreement with SNF. SW called all local SNF's and was informed they all contact with pt's insurance. SW provided SNF choice list and this information. Family would like referral to [facility] [place]. CARLO faxed both facilities and provided access. UR specialist to get in touch with pt's insurance to determine copay and policy. Referral had also been made to [facility]. Paperwork and PASRR in the chart. SW will continue to follow. Assessment:Pt who would benefit from SNF. Plan:[facility] have been faxed. Insurance authorization will need to be obtained. Paperwork and PASRR in the chart. SW will continue to follow. HARISH Solis
--- NOTE | 2016-10-25 15:32 | DRSVH ---
PROCEDURE: US ABDOMEN, LIMITED ([id number]) INDICATIONS: ascietie TECHNIQUE: Real-time focused scanning was performed of the abdomen, with image documentation. COMPARISON: None. FINDINGS: Limited exam demonstrating trace perihepatic fluid within the right upper quadrant. IMPRESSION: Trace ascites. Dictated by: Christopher BISHOP Interpreted: Johann Urbina MD on 10/25/2016 at 15:30 Transcribed by: DEAN on 10/25/2016 at 15:31 Approved by: Johann Urbina M.D. on 10/26/2016 at 10:47
[2016-10-25 15:43] VITALS: BP 164/74; PULSE 116; RESP 18; O2SAT 95
--- NOTE | 2016-10-25 19:22 | CCS NOTE ---
[facility] [address] [address] MEDICAL ONCOLOGY OFFICE NOTE PATIENT: MARVA CHOPRA : 1955 MR#: [id number] DATE: 10/17/2016 JOB ID: [id number] DATE: 10/25/2016 SUBJECTIVE: The patient was seen at bedside with son and [id number] as well as her sister and [id number] for a family conference. There has been no major issue since yesterday in terms of how the patient has been doing. Her labs show a slight increase in bilirubin to 1.5. Her INR is therapeutic with approximately 2.5 with a relatively low dose of warfarin likely due to her pre-existing liver disease. There has been no neurologic deterioration to suggest further extension of the stroke. Her respiratory status is stable. Her vitals show no significant abnormality. She has a compression sleeve on the right side. No significant edema in the legs. Her speech is unaffected and she is oriented and asking appropriate questions. ASSESSMENT AND PLAN: A 61-year-old lady who has had a remote history of node-positive breast cancer 14 years ago on the right side treated with mastectomy, adjuvant radiation and chemotherapy in 2001, but did not take adjuvant hormonal therapy and did not go for any further oncologic followup since 2002. She has been avoiding any meaningful medical care including lack of any lab studies over the past 13 years. She is admitted with major bilateral PE and has also found to have DVT in her lower extremity, and during this hospitalization underwent an extended right mid cerebral artery stroke causing left hemiparesis but no hemiplegia. Radiographic evaluation suggests metastatic neoplasm involving the skeletal system, several nonbulky lymph nodes in the abdomen and liver lesions as well as evidence of ischemic infarcts. Her tissue acquisition was very challenging given the fresh thrombotic events and need for anticoagulation on one hand and obtaining tissue diagnosis on the other hand. This was eventually performed with ultrasound-guided biopsy of the liver on Sunday, October 20 after holding heparin for several hours before and some extended hours after the biopsy. She is now on low-dose Coumadin with a therapeutic INR. Other findings suggest the presence also of liver cirrhosis causing reactive splenomegaly and multifactorial cytopenias. Biopsy results finally became available today. I personally spoke with of pathology. As expected, the biopsy is consistent with recurrent metastatic breast cancer that is ER positive, HER-2 negative. I discussed that in detail with the family and they mentioned that there is now confirmation for advanced recurrent breast cancer that is noncurable. Normally, in ER positive, HER-2 negative patients even with the metastatic disease, we can achieve an excellent and longer-term disease control, but in this patient the situation is very complicated because of her liver disease and pre-existing cytopenias and also now the functional decline with the stroke. She is not a candidate for any cytotoxic chemotherapy at this point. I discussed the options of either palliative care alone versus hormonal therapy with antiestrogen pill anastrozole. This should be tolerable even in the setting of liver disease, and the toxicity profile is relatively mild. After some pros and cons, the family and the patient decided to proceed with hormonal therapy and I started her on the first dose of anastrozole today 1 mg daily that she will continue. I think she could then be discharged in the next day or two to a assisted facility. The dose of anticoagulation needs to be fairly low and cautious with the warfarin given the pre-existing liver insufficiency that would result in very high supratherapeutic INRs. If her functional status does not improve or deteriorates or her desire changes, we would then discontinue therapy and transition her to hospice. I plan to see her in the next 10 days in the clinic for followup. The plan was also discussed with involved medical providers. Approximately 1 hour and 5 minutes were spent in counseling and coordination of care.
[2016-10-25 20:59] VITALS: BP 166/86; PULSE 111; RESP 20; O2SAT 100
[2016-10-26 05:37] VITALS: BP 140/74; PULSE 108; RESP 20; O2SAT 92
--- NOTE | 2016-10-26 05:40 | NUR ---
Stable Over Night Pt c/o back pain 01/08, mild nausea and anxiety at late evening, states "I am tired of being in the hospital" and anxious about discharge. Oxycodone 5mg, Zofran 8mg and Lorazepam given, k-pad applied at back, spiritual support provided, symptoms improved,pt fall asleep comfortably through the night. Denies SOB/Cough/chest pain/abdominal pain/active bleed/fever/chills. VSS. Pt alert and orientedx3, generalized weakness, neuro check: left-sided weakness almost completely resolved,no significant neurological deficit noted.
--- NOTE | 2016-10-26 06:20 | NUR ---
Lab draw from [facility] and blood sample sent to the lab.
[2016-10-26 06:43] LABS: INR 3.6 ratio
--- NOTE | 2016-10-26 08:25 | NUR ---
Called patient's insurance to verify benefits. [phone] Effective Date 10/01/2016 Active PPO plan No waiting period In network facilities covered up to 80% of the allowed amount. This is subject to deductible. Deductible for year:2600.00 Deductible Met:29.51 OOP for year:Unlimited Lifetime Max OOP Met: 29.51 Pre Authorization is required [id number] (Request need to be called to this #) Addendum: 10/26/16 at 1041 by SHIRLEY RAMIREZ CM Called [facility] to double check on acceptance. They are still looking at insurance. [facility] ready we need authorization started now. Updated FOIL OPERATOR Addendum: 10/26/16 at 1123 by SHIRLEY RAMIREZ CM [facility] can accept with [facility] to follow pending insurance authorization and verification. Updated FOIL OPERATOR Addendum: 10/26/16 at 1440 by SHIRLEY RAMIREZ CM [facility] is unable to meet patient needs. [facility] is still working on insurance and I left additional message @ [phone]
[2016-10-26] MEDS: Pantoprazole 4 mg/mL 10 mL Inj IVPUSH SCH (09:11)
--- NOTE | 2016-10-26 09:37 | PCM.PALLBR ---
Palliative Care Recommendation 61-year-old female admitted with finding of multiple bilateral pulmonary emboli after presenting with dyspnea and chest pain. Evaluation has shown widespread abnormalities, probably consistent with metastatic disease, probably related to her prior diagnosis of breast cancer, but tissue diagnosis pending. Suffered in -hospital right-sided CVA, likely also a consequence of coagulopathy related to metastatic cancer. Continues on full anticoagulation with IV heparin at this time. Palliative medicine consulted to assist patient and her family in determination of goals of care. Summary of palliative recommendations: 10/26/16 See note- GOC-for now goal is for rehab physically. Unclear if willing to deal with other issues. Will have Terri Nain CLOTH HANDLER review options for ETOH counselling and txmt. DPOAHC form -completed. AD-Pt does not identify that such decisions are possible. Will review also with family-sister of son. Reviewed with pt benefit of communicating her goals with them. ETOH/cirrhosis and portal HTN, pancytopenia-very poor insight into issues. CLOTH HANDLER will see. Family very aware. Recurrent breast CA-ER+/HER2 neg with plan to treat with Anastrozole as hormone blocking agent. Multiple embolic/thrombotic events most likely due to CA related coagulopathy now on warfarin and increasing INR. CVA-willing to go to SNF. Consider neuropsych testing if she is considering returning to work or if needed to establish disability. 10/25/16 Patient's mentation much improved this PM. Interested in rehab. Family discussed path and treatment options with Dr. Leal-with plan for treatment that will be started through office. Follow up course will depend on how she responds both with respect to the treatment and mentally/physically to rehab. She is not in position to decide on ETOH treatment options. Will review this and GOC tomorrow AM Family is in support of SNF--arrangements proceeding through CM Reviewed concerns for family re going home vs their preference for SNF with SS/ CM. Will review this again with patient and family- including son tomorrow. Will also need discussion re ? ETOH treatment Conference with Dr. Leal tomorrow to establish plan of care. -Symptom management (Pain/other)- comfortable. Continued management per hospitalist/medical team. Long-term anticoagulation in setting of (probable) cancer-related coagulopathy per oncology. -DPOA/Advanced Directives/POLST- completed formal DPOA documentation today. Copies provided to patient, placed in her chart, and saved in palliative office. At this time patient and her son wish to continue aggressive evaluation and treatment and she remains full code. -Family/emotional support- family support appears good. Palliative medicine will continue to follow and assist in making further arrangements, dependent on needs at time of discharge. -Spiritual support- offered. Patient Goals: 1. Patient and family want to be told the truth about her illness, even if it is unpleasant. 2. Patient and her family would like to be told prognosis when it can be predicted, to better guide treatment decisions. Additional Medical Diagnoses with primary management by Hospitalist team include : #. New right temporal parietal CVA , with partial visual loss and left-sided weakness on exam. Likely secondary to metastatic CA with evidence of disease in the calvarium and lytic lesions of the bone #. Multiple bilateral pulmonary emboli involving lobar pulmonary arteries in the right upper, middle, and lower lobes as well as the left lower lobe with extension into segmental and subsegmental branches. #. Probable Metastatic Breast Cancer. Present on admission. #. Macrocytic anemia with Leukopenia. Present on admission. #. Probable cirrhosis. Based on hepatic imaging. #. Elevated transaminitis. AST 203, ALT 143 on admission. #. Abnormal thyroid function tests. Hypothyroidism versus euthyroid sick syndrome. #. Osteoporosis. #. Depression # Alcoholism--consider thiamine # cholelithiasis- difficult to assess if symptoms but doubt is cause of elevated transaminases. Problems: End of Life Preferences Full code Goals of Care She and her son continue to hold for stabilization, completing evaluation and then considering treatment options Disposition SNF for rehab. Resuscitation Status Resuscitation Status: CPR: Attempt Resuscitation POLST Updates/Changes Previous POLST?: No POLST Discussed with: Patient Total time 50 minutes; >50% face to face with patient and/or family, providing counselling regarding plans and recommendations, and in care coordination with his/her medical teams. I also spent an additional [ ] minutes counseling for advanced care planning with the patient/the patients family/the surrogate decision maker. copies to: Thierry Cruz MD; Fani Flanagan Palliative Brief Note Date of Service Oct 26, 2016 . Met with patient alone. She is oriented and willing to engage. She has fair recall about discussion with Dr. Leal last evening but needs prompting on a number of issues-treatment, comorbidities--ie cirrhosis, CVA. She thinks at this point there will be no further complications--"I am on coumadin-why would there be a problem?" She defines that she is willing to go to SNF for rehab. She continues to define it as a chcf house. She acknowledges her alcoholism, has never been in rehab and states matter of factly that treatment programs "do not work". She states her cirrhosis is not treatable or reversible so why address the ETOH. She states she has not completed DPOAHC etc and that her son has the form. She defines that her son Neri would be her preferred DPOAHC and second would be her sister Ronni. When asked about AD and those decisions she states she could not answer/decide this and that she has not thought about it--"terminal ds, code status etc" She feels discussion of this would be a burden to her son and that her sister who works in has "better tools" for this. O: mild L facial weakness modest to mild L weakness on PT eval. 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
--- NOTE | 2016-10-26 10:21 | PCM.PHAPRO ---
Progress Date of Service: Oct 26, 2016 Warfarin Dosing A/ INR is supratherapeutic today at 3.6. Pt appears to be very sensitive to warfarin. P/ Hold warfarin dose today, reduce dose further when INR is therapeutic again. Pharmacy will continue to follow daily. Thanks for the consult in the care of this patient. Dada Arellano PharmD Oct 26, 2016 10:20
--- NOTE | 2016-10-26 11:24 | NUR ---
Palliative care note D/A: Case discussed in PC rounds. Dr. Menchaca indicates that pt/family have expressed desire for primary consideration of SNF to be in the [facility] area vs. [facility]. They had hoped for [facility]. Dr. Menchaca asks this worker to communicate this to VAUGHN MOREIRA, message left for alba Paulino. P: Palliative care to continue to follow. Terri EVANS [facility] Addendum: 10/26/16 at 1237 by SUNITA HERNANDEZ Palliative care note Above note entered on incorrect pt. Please disregard above note. Terri EVANS [facility] Addendum: 10/26/16 at 1401 by SUNITA HERNANDEZ Palliative care note amendment D/A: It is correct that this pt wishes to go to SNF at [facility]. department working towards this end. Met with pt and her bro who both express eagerness for [place] and [facility]. They are hopeful that this will happen today. Provided pt with CD resources list. Pt with questions about her DPOA. Showed her document and discussed her choices with pt and bro. (Pt did not recall making this decision or filling out document.) Pt expressed concern for deciding to have her 28 year old son making serious medical decisions and worries about the stress that this would or could cause him. Her bro was able to speak to her about how her son wants to do this service for her and that her son will make any decisions after discussing it with pt sister and bro and will have the support of the family behind him. Pt and bro are offered copy of the DPOA in the chart but both decline. Pt son and sister (decision makers #1 and #2) already have copies of the DPOA which is all that is needed. P: Palliative care to follow as needed. Terri EVANS, CCM
[2016-10-26 13:00] VITALS: BP 164/74; PULSE 109; RESP 20; O2SAT 92
--- NOTE | 2016-10-26 15:05 | PCM.DIMED ---
Kel Ordaz DO 10/26/16 1505: Discharge Instructions Date of Service Oct 26, 2016 Dates of Hospitalization Oct 17, 2016 at 00:29 Discharge Diagnosis Discharge Diagnosis #. New right temporal parietal CVA, present on admission, stable #. Multiple bilateral pulmonary emboli, present on admission, stable #. Metastatic Breast Cancer. present on admission, ongoing #. Macrocytic anemia with Leukopenia, present on admission, ongoing #. Likely cirrhosis, present on admission, ongoing #. Elevated transaminitis, present on admission, ongoing #. Abnormal thyroid function tests, present on admission, ongoing #. Osteoporosis, present on admission, ongoing #. Depression, present on admission, ongoing # Alcoholism, present on admission, ongoing # Deep vein thrombosis, present on admission, stable Medication Instructions Need INR before dose given 10/27/2016 Warfarin 1mg daily INR check Q2days Optimal rage INR 2-3 Recommend that Pharmacy dose your warfarin. You are at a very fragile state. You have liver cirrhosis. Activity Other (In ) Patient Instructions For your hospitalization, you were admitted for pulmonary embolism ( clots in your lungs). In the process, we found evidence of metastatic disease. This was found to be a recurrent breast cancer. This is likely the reason for your clots as it can make your blood hypercoagulable. It is also likely this was the cause of your stroke. You will be follow by Oncologist Dr. Leal. Will need to make appt to see in in 10 days. Follow-up Provider: Fani Flanagan Follow-up with PCP in: 1 week (1 wks after you get discharge from [facility] ) George Adamson MD 10/27/16 1332: Kel Ordaz DO Oct 26, 2016 15:05 George Adamson MD Oct 27, 2016 13:32
--- NOTE | 2016-10-26 16:30 | NUR ---
Social Work: Discharge Data: Pt is on day 9 of hospitalization. EMR reviewed. [facility] can accept pt and has authorization from pt's insurance. BOILER COVERER updated MD, RN, and pt and family. working on d/c orders currently. Pt will transport at 5:30pm via [employer], set up by [employer]. BOILER COVERER will complete packet and fax orders once complete. Assessment: Pt who is independent at baseline. Plan: Pt will d/c at 5:30pm via wheel chair van to [facility]. BOILER COVERER will complete packet and fax orders once complete. HARISH Mckenzie Addendum: 10/26/16 at 1701 by CLAUDINE MENARD Per floor BOILER COVERER request, this BOILER COVERER faxed orders, scripts and PASSR to [facility]. IV therapy coming to d/c pt's PICC line.
[2016-10-26] MEDS ORDERED: PANT40TA2 PO (16:45)
[2016-10-26] MEDS ORDERED: ASPI81TA3 PO (16:45)
[2016-10-26] MEDS ORDERED: ANST1T PO (16:45)
[2016-10-26] MEDS ORDERED: OXYC5TAB72 PO (16:45)
[2016-10-26] MEDS ORDERED: Warfarin per Pharmacist XX (16:45)
[2016-10-26] MEDS ORDERED: ONDA-53 PO (16:45)
[2016-10-26] MEDS ORDERED: LORA2VIA3 IVPUSH (16:45)
[2016-10-26] MEDS ORDERED: SPIR25TA PO (16:45)
[2016-10-26] MEDS ORDERED: LORA0.5T PO (17:12)
--- NOTE | 2016-10-26 17:58 | NUR ---
Discharge pt discharged to [facility] at 1758 by [facility]. All pt belonging sent with pt and family. Report called to Jania and [facility]. Transfer paperwork (including hard copies of Rx) sent with transporter. PICC line removed by IV therapy.
--- NOTE | 2016-10-26 21:34 | PCM.DC.MED ---
Discharge Summary Date of Service Oct 26, 2016 Dates of Hospitalization Date of Hospital Admission Oct 17, 2016 at 00:29 Date of Discharge: Oct 26, 2016 Providers: Admitting Physician: Vinh Jones MD Primary Care Physician: Fani Flanagan Attending Physician: Vinh Jones MD Diagnosis at Time of Discharge Diagnosis at Time of Discharge #. New right temporal parietal CVA, present on admission, stable #. Multiple bilateral pulmonary emboli, present on admission, stable #. Metastatic Breast Cancer. present on admission, ongoing #. Macrocytic anemia with Leukopenia, present on admission, ongoing #. Likely cirrhosis, present on admission, ongoing #. Elevated transaminitis, present on admission, ongoing #. Abnormal thyroid function tests, present on admission, ongoing #. Osteoporosis, present on admission, ongoing #. Depression, present on admission, ongoing # Alcoholism, present on admission, ongoing # Deep vein thrombosis, present on admission, stable Procedures XRay, CTs & MRIs CT BRAIN WITHOUT CONTRAST 10/16/16 IMPRESSION: 1. Lytic lesions in the calvarium consistent with osseous metastatic disease. 2. No definite intracranial hemorrhage, mass or mass effect. If there is persistent clinical suspicion for intracranial metastatic disease, recommend further evaluation with a contrast enhanced brain MRI. Dictated by: Michael Garnica M.D. on 10/16/2016 at 21:38 CT ANGIO CHEST PULMONARY EMBOLISM 10/16/16 IMPRESSION: 1. Multiple bilateral pulmonary emboli involving lobar pulmonary arteries in the right upper, middle, and lower lobes as well as the left lower lobe with extension into segmental and subsegmental branches. No definite evidence of right heart strain. 2. Findings consistent with diffuse metastatic disease including mediastinal lymphadenopathy, multiple hepatic mass lesions, splenic mass, mesenteric lymphadenopathy, and sclerotic bone lesions. 3. Compression fractures of T7 and T10 vertebral bodies as described without associated spinal canal narrowing. The fractures are likely pathologic secondary to metastatic disease. 4. Small amount of ascites within the visualized abdomen. Findings discussed with Dr. Cohn on 10/16/16 at 8:55 PM. Dictated by: Michael Garnica M.D. on 10/16/2016 at 21:05 PROCEDURE: CT ABDOMEN AND PELVIS WITH CONTRAST ([id number]) IMPRESSION: 1. Cirrhosis, and portal hypertension, associated with splenomegaly, and small amount of ascites. 2. Moderate sized splenic infarct. 3. The multifocal ill-defined hepatic hypodense lesions are not definitively malignant, and may represent an atypical appearance of fatty infiltration, and/ or hepatic infarcts. Liver protocol MRI with and without intravenous contrast may be helpful for further assessment. 4. Cholelithiasis. Thickened gallbladder wall is present, which may indicate cholecystitis versus sequelae secondary to cirrhosis/portal hypertension. 5. Multifocal lucencies within the lumbar sacral spine and pelvis, and left posterior acetabular sclerotic density. New, mild L3 wedging associated with L3 lucent lesion. Findings could indicate bony metastatic disease; whole-body bone scan recommended for further assessment. 6. Increased, mild retroperitoneal lymph node enlargement; findings could be reactive (e.g., secondary to cirrhosis), or secondary to early metastatic disease; followup CT imaging is recommended in 1-3 months, as clinically warranted. 7. Findings and recommendations discussed with Dr. Pemberton on 10.17.16 at 1615 hrs. Dictated by: Manuel Pate M.D. on 10/17/2016 at 16:25 PROCEDURE: CT BRAIN WITHOUT CONTRAST IMPRESSION: 1. Large right watershed distribution infarct as described above. No hemorrhagic transformation or midline shift. This finding was discussed with Dr. Davies at 10:03 AM on 10/22/16. 2. Multiple calvarial lytic lesions redemonstrated consistent with metastatic disease. Dictated by: Macie Peterson M.D. on 10/22/2016 at 9:59 PROCEDURE: MRI STROKE PROTOCOL FINDINGS: IMPRESSION: BRAIN MRI: 1. Large area of acute ischemia involving the right parietal-temporal- occipital region. There is sparing of the right frontal lobe. 2. Small areas of acute ischemia involving the right cerebellar hemisphere. 3. No acute hemorrhage or hemorrhagic conversion within the brain. 4. No parenchymal masses or suspicious enhancement. 5. Moderate maxillary sinus disease. BRAIN MR ANGIOGRAM: 1. There appears to be occlusion of one of the more of the posterior distal branches of the right middle cerebral artery, correlating with the large area of ischemia involving the right rrtscoun-jgxcxcjr-wivamhjlk region. The main portion of the right middle cerebral artery is patent and the anterior branches of the right middle cerebral artery are also patent. 2. The posterior circulation is within normal limits. NECK MR ANGIOGRAM: 1. Nondiagnostic evaluation of the carotid arteries related to severe motion. No complete occlusions involving the vertebral arteries or carotid arteries are evident. However, this examination is nondiagnostic for evaluation of areas of narrowing, occlusion, or aneurysm. 2. Moderate-sized bilateral pleural effusions (right greater than left). The estimate of stenosis included in the report of the imaging study was calculated using the NASCET method Dictated by: Brendan Grimaldo M.D. on 10/22/2016 at 15:02 Cardiac Echo Impression Echocardiogram Report Interpretation Summary 1. Normal left ventricular size with mildly increased wall thickness and normal systolic function with an estimated EF of 60-65% 2. Normal right ventricular size and systolic function. The estimated RVSP is 24 mm Hg plus the right atrial pressure. 3. Mild to moderate aortic insufficiency There is no old study for comparison Brief History Per admission H&P: 61 year old female with History of breast cancer s/p mastectomy with post surgical RUE lymphedema who presents to [facility] Emergency department due to respiratory symptoms with elevated D dimer at Urgent Care clinic Two weeks ago the patient was seen at urgent care and was diagnosed with a sinus infection. She was started on antibiotics (Augmentin) and has had progressively worsening shortness of breathe since. Exacerbated with exertion and lifting heavy stuff. Pt was seen at urgent care today c/o multiple vague complaints including fatigue and dyspnea. Lab studies included D-dimer and BNP which were markedly elevated. Called at home and told to go to ER. She also complain of chest tightness with deep inspiration and calf edema. Additionally, she complains of intermittent purple discoloration of fingers and toes, not associated with cold weather. Pt recently started a job in a [employer], which reportedly is harder labor then her previous job, and had a 20 pound weight loss. Pt denies fever, chills, trauma, surgery, immobilization, estrogen replacement. Case discussed with Dr Cohn. Patient had CT confirming Pulmonary embolism. Imaging also confirmed metastatic cancer, new finding as the patient thought she was cancer free from her Breast Cancer. Patient was admitted and treated appropriately for her bilateral pulmonary emboli. She was seen in consultation by oncology and had additional laboratory and imaging studies to help elucidate the etiology of her coagulopathy and abnormality seen on initial imaging. She underwent a percutaneous liver biopsy in attempt to obtain tissue for definitive diagnosis. On 10/22/16 she developed visual disturbance and left-sided weakness and repeat CT scanning revealed evidence of right sided CVA. At this time she continues on heparin anticoagulation and other appropriate medical management, awaiting biopsy results. Palliative medicine was consulted to provide support and assist the patient and her son in determining goals of care. Prior to visiting the patient, I reviewed her records in the EMR in detail. Spoke with her bedside nurse and with her hospitalist. When I arrived, she is resting quietly in bed. Her son Neri is at bedside. She denies any significant distress- says that her dyspnea and chest pain present at time of admission have essentially resolved. She does note some mild left-sided weakness. She is slightly forgetful and confused- for example, she repeats several times that her biopsy was this morning (the weight was actually several days ago). We spoke at length, reviewing her presenting symptoms, initial diagnoses, evaluation to this point, and possibilities for future treatment. I answered questions that they had about her care to this point. Towards the end of our interview, when I asked if she had further questions, she said "why isn't life fair? Hospital Course Patient is a 61-year-old right handed woman with history of breast cancer 12 years ago prevent presents with weakness and dyspnea on exertion noted to have pulmonary embolism, new right temporal parietal CVA and DVT of LLE. #. New right temporal parietal CVA , with partial visual loss and left-sided weakness on exam. Likely secondary to metastatic CA with evidence of disease in the calvarium and lytic lesions of the bone -MRI demonstrate multiple embolic strokes, largest is located parietal-temporal- occipital region. -Echo with bubble, Us venous lower leg duplex pending -ASA 81mg and atorvastatin added. #. Multiple bilateral pulmonary emboli involving lobar pulmonary arteries in the right upper, middle, and lower lobes as well as the left lower lobe with extension into segmental and subsegmental branches. Present on admission. NO indications for TPA as there was no e/o right heart strain on CT scan. Likely 2/ 2 Malignancy, with no recent travels, surgeries or contraceptives. No family history of thrombophilia. - Lovenox therapeutic (preferred anticoagulation for Pulmonary embolism with Malignancy). - INR remains therapeutic today, Pharmacy managing dosing - Repeat INR in AM - Will d/c patient home on warfarin. #. Metastatic Breast Cancer. Present on admission. Based on findings in chest CT angiogram, patient was informed of likely metastatic disease to liver spleen bones and lymph nodes. Subsequent abdominal and imaging cast doubt on neoplastic disease of liver and spleen. Bone lesions seem to be a progression of prior findings observed on CT scan in 10/2015. Compression fracture of spine may be osteoporosis, for which the patient has a prior diagnosis. Adenopathy is of uncertain cause. -Oncology Dr. Leal following. She is most likely to received hormone therapy, probably not chemo given deconditioned state however. -Palliative care consult Polst form to be filled #. Macrocytic anemia with Leukopenia. Present on admission. Consider alcohol bone marrow toxicity versus myelocystic disease. - Iron studies Vitamin B and Folate levels does not indicate deficiency - Hematology/oncology consult appreciated #. Probable cirrhosis. Based on hepatic imaging. History is positive for regular consumption of 2-3 alcohol drinks per day per patient. No prior clinical diagnosis diagnosis. - Follow CMP periodically - Discussed alcohol cessation with patient the patient admits to drinking at least 2 hard on alcohol beverages per day. - Plan referral for appropriate hepatic follow-up, depending on overall health picture #. Elevated transaminitis. AST 203, ALT 143 on admission. Hepatic imaging suggests cirrhosis but possibly also nodular disease. - Hepatitis panel negative. LFT consistent with ETOH abuse and malignancy - Added spironolactone given increase acetics fluids. potential portal hypertension - Us abdomen. - Also ordered NH3 to determined baseline #. Abnormal thyroid function tests. Hypothyroidism versus euthyroid sick syndrome. Unclear whether this is symptomatic, in setting of multiple other medical issues. - Repeat tests with reverse T4 - Consider treatment as indicated #. Osteoporosis. With possible pathological fractures, possibly secondary to metastatic disease. - Plan to continue her chronic Fosamax therapy #. Depression - continue Prozac # Alcoholism -May need CIIA protocol -Thiamine daily - Acetaminophen as needed for mild pain/fever/headache - Bowel regimen as needed - Antiemetic as needed Disposition: Discharge pending placement to SNF, likely tomorrow or the following. Exam Vital Signs (Last) Date Time Temp Pulse Resp B/P Pulse Ox O2 Delivery O2 Flow Rate FiO2 10/26/16 13:52 Room Air 10/26/16 13:00 36.6 109 20 164/74 92 Test 10/16/16 19:05 10/17/16 00:35 10/17/16 15:10 10/18/16 08:01 Reticulocyte Count,Calculated 3.3% (0.6-2.6) Iron Level 102ug/dL (35-150) Total Iron Binding Capacity 270ug/dL (250-450) Percent Iron Saturation 38%sat (15-50) Unsaturated Iron Binding 167.6ug/dL Ferritin 42831yz/mL (13-150) Troponin T < 0.010ug/L (0.0-0.011) Pro-B-Type Natriuretic Peptide 686.2pg/mL (0-287) Vitamin B12 Level >1999pg/mL (211-946) Folate 9.8ng/mL (>3.0) Hepatitis A IgM Antibody Negative (Negative) Hepatitis B Surface Antigen Negative (Negative) Hepatitis B Core IgM Antibody Negative (Negative) Hepatitis C Antibody <0.1s/co ratio (0.0-0.9) Hepatitis C Comment Comment (.) Haptoglobin < 10mg/dL (34-200) Lactate Dehydrogenase 511U/L (100-190) Carcinoembryonic Antigen 3831.0ng/mL (0.0-4.7) CA 27.29 8381.2U/mL (0.0-38.6) Nucleated Red Blood Cells 1/100 WBC (0-24) Phosphorus Level 3.2mg/dL (2.5-4.9) Thyroid Stimulating Hormone (TSH) 12.880uIU/mL (0.450-4.500) Free Thyroxine 1.10ng/dL (0.82-1.77) Reverse Triiodothyronine (T3) 40ng/dL (9.2-24.1) Total Triiodothyronine 126ng/dL (71-180) Test 10/19/16 05:35 10/21/16 11:19 10/22/16 06:30 10/23/16 08:58 Magnesium Level 1.9mg/dL (1.6-2.6) Band Neutrophils % 3% (1-5) Hematology Comments Rbc Triglycerides Level 145mg/dL (0-149) Cholesterol Level 93mg/dL (100-199) LDL Cholesterol, Calculated 46.000mg/dL (0-99) VLDL Cholesterol 29.000mg/dL HDL Cholesterol 18mg/dL (>39) Cholesterol/HDL Ratio 5.17 (0.0-4.4) Test 10/24/16 06:00 10/24/16 11:30 10/25/16 11:35 10/26/16 06:00 White Blood Count 1.8th/mm3 (3.8-10.1) Red Blood Count 2.73mil/mm3 (3.90-5.20) Hemoglobin 9.9g/dL (12.0-15.6) Hematocrit 30.9% (35.0-46.0) Mean Corpuscular Volume 113.2fL (81-100) Mean Corpuscular Hemoglobin 36.3pg (27.0-35.0) Mean Corpuscular Hemoglobin Concent 32.0% (32.0-37.0) Red Cell Distribution Width 15.5% (12.3-15.4) Platelet Count 177bil/L (150-400) Neutrophils (%) (Auto) 75% (40-74) Lymphocytes (%) (Auto) 14% (14-46) Monocytes (%) (Auto) 10% (4-12) Eosinophils (%) (Auto) 1% (0-5) Basophils (%) (Auto) 0% (0-3) Sodium Level 136mEq/L (134-144) Potassium Level 4.7mEq/L (3.5-5.2) Chloride Level 99mEq/L (97-108) Carbon Dioxide Level 22mmol/L (18-29) Blood Urea Nitrogen 11mg/dL (8-27) Creatinine 0.72mg/dL (0.57-1.00) Estimat Glomerular Filtration Rate 118mL/min (>59) Glucose Level 86mg/dL (60-99) Calcium Level 9.4mg/dL (8.5-10.1) Total Bilirubin 1.5mg/dL (0.0-1.2) Aspartate Amino Transf (AST/SGOT) 248U/L (0-50) Alanine Aminotransferase (ALT/SGPT) 142U/L (0-32) Alkaline Phosphatase 113U/L (25-165) Total Protein 5.4g/dL (6.4-8.4) Albumin 2.4g/dL (3.4-5.0) Activated Partial Thromboplast Time 76.5sec (22.8-33.0) Hold Blue Top Tube Received (Received) Ammonia 69ug/dL (18-53) Prothrombin Time 39.5sec (8.1-12.5) Prothromb Time International Ratio 3.60ratio Discharge Medications Discharge Medications ([Warfarin per Pharmacist]) 1 EA EA 1 EA XX DAILY@17 Prescribed by: NAOMI ORDAZ DO Anastrozole (Arimidex) 1 Mg Tablet 1 MG PO DAILY Prescribed by: NAOMI ORDAZ DO Aspirin Chew (Aspirin Chew) 81 Mg Chew 81 MG PO DAILY Prescribed by: NAOMI ORDAZ DO Ondansetron (Ondansetron) 4 Mg Tablet 4 MG PO Q6H Prescribed by: NAOMI ORDAZ DO Pantoprazole DR (Protonix) 40 Mg Tablet 40 MG PO DAILY Prescribed by: NAOMI ORDAZ DO Spironolactone (Aldactone) 25 Mg Tablet 12.5 MG PO DAILY Prescribed by: NAOMI ORDAZ DO As needed Amitriptyline (Amitriptyline) 10 Mg Tablet 10 MG PO HS PRN PRN prn (Reported) Lorazepam (Lorazepam) 0.5 Mg Tablet 0.5 MG PO Q6H PRN PRN For Insomnia Prescribed by: NAOMI ORDAZ DO oxyCODONE (oxyCODONE) 5 Mg Tablet 5 MG PO Q4H PRN PRN For Moderate Pain Prescribed by: NAOMI ORDAZ DO Miscellaneous Medications Fluoxetine (Prozac) 10 Mg Capsule 10 MG PO (Reported) Additional med instructions Need INR before dose given 10/27/2016 Warfarin 1mg daily INR check Q2days Optimal rage INR 2-3 Recommend that Pharmacy dose your warfarin. You are at a very fragile state. You have liver cirrhosis. Followup Plan Discharge Activity: Other (In ) Patient Instructions For your hospitalization, you were admitted for pulmonary embolism ( clots in your lungs). In the process, we found evidence of metastatic disease. This was found to be a recurrent breast cancer. This is likely the reason for your clots as it can make your blood hypercoagulable. It is also likely this was the cause of your stroke. You will be follow by Oncologist Dr. Leal. Will need to make appt to see in in 10 days. Follow-up Provider: Fani Flanagan Follow-up with PCP in: 1 week (1 wks after you get discharge from [facility] ) Naomi Ordaz DO Oct 26, 2016 21:34 George Adamson MD Oct 27, 2016 13:35
--- NOTE | 2016-10-27 03:01 | PCM.DC.MED ---
Discharge Summary Date of Service Oct 27, 2016 Dates of Hospitalization Date of Hospital Admission Oct 17, 2016 at 00:29 Date of Discharge: Oct 26, 2016 Providers: Admitting Physician: Vinh Jones MD Primary Care Physician: Fani Flanagan Attending Physician: Vinh Jones MD Diagnosis at Time of Discharge Diagnosis at Time of Discharge #. New right temporal parietal CVA, present on admission, stable #. Multiple bilateral pulmonary emboli, present on admission, stable #. Metastatic Breast Cancer. present on admission, ongoing #. Macrocytic anemia with Leukopenia, present on admission, ongoing #. Likely cirrhosis, present on admission, ongoing #. Elevated transaminitis, present on admission, ongoing #. Abnormal thyroid function tests, present on admission, ongoing #. Osteoporosis, present on admission, ongoing #. Depression, present on admission, ongoing # Alcoholism, present on admission, ongoing # Deep vein thrombosis, present on admission, stable Procedures XRay, CTs & MRIs CT BRAIN WITHOUT CONTRAST 10/16/16 IMPRESSION: 1. Lytic lesions in the calvarium consistent with osseous metastatic disease. 2. No definite intracranial hemorrhage, mass or mass effect. If there is persistent clinical suspicion for intracranial metastatic disease, recommend further evaluation with a contrast enhanced brain MRI. Dictated by: Michael Garnica M.D. on 10/16/2016 at 21:38 CT ANGIO CHEST PULMONARY EMBOLISM 10/16/16 IMPRESSION: 1. Multiple bilateral pulmonary emboli involving lobar pulmonary arteries in the right upper, middle, and lower lobes as well as the left lower lobe with extension into segmental and subsegmental branches. No definite evidence of right heart strain. 2. Findings consistent with diffuse metastatic disease including mediastinal lymphadenopathy, multiple hepatic mass lesions, splenic mass, mesenteric lymphadenopathy, and sclerotic bone lesions. 3. Compression fractures of T7 and T10 vertebral bodies as described without associated spinal canal narrowing. The fractures are likely pathologic secondary to metastatic disease. 4. Small amount of ascites within the visualized abdomen. Findings discussed with Dr. Cohn on 10/16/16 at 8:55 PM. Dictated by: Michael Garnica M.D. on 10/16/2016 at 21:05 PROCEDURE: CT ABDOMEN AND PELVIS WITH CONTRAST ([id number]) IMPRESSION: 1. Cirrhosis, and portal hypertension, associated with splenomegaly, and small amount of ascites. 2. Moderate sized splenic infarct. 3. The multifocal ill-defined hepatic hypodense lesions are not definitively malignant, and may represent an atypical appearance of fatty infiltration, and/ or hepatic infarcts. Liver protocol MRI with and without intravenous contrast may be helpful for further assessment. 4. Cholelithiasis. Thickened gallbladder wall is present, which may indicate cholecystitis versus sequelae secondary to cirrhosis/portal hypertension. 5. Multifocal lucencies within the lumbar sacral spine and pelvis, and left posterior acetabular sclerotic density. New, mild L3 wedging associated with L3 lucent lesion. Findings could indicate bony metastatic disease; whole-body bone scan recommended for further assessment. 6. Increased, mild retroperitoneal lymph node enlargement; findings could be reactive (e.g., secondary to cirrhosis), or secondary to early metastatic disease; followup CT imaging is recommended in 1-3 months, as clinically warranted. 7. Findings and recommendations discussed with Dr. Pemberton on 10.17.16 at 1615 hrs. Dictated by: Manuel Pate M.D. on 10/17/2016 at 16:25 PROCEDURE: CT BRAIN WITHOUT CONTRAST IMPRESSION: 1. Large right watershed distribution infarct as described above. No hemorrhagic transformation or midline shift. This finding was discussed with Dr. Davies at 10:03 AM on 10/22/16. 2. Multiple calvarial lytic lesions redemonstrated consistent with metastatic disease. Dictated by: Macie Peterson M.D. on 10/22/2016 at 9:59 PROCEDURE: MRI STROKE PROTOCOL FINDINGS: IMPRESSION: BRAIN MRI: 1. Large area of acute ischemia involving the right parietal-temporal- occipital region. There is sparing of the right frontal lobe. 2. Small areas of acute ischemia involving the right cerebellar hemisphere. 3. No acute hemorrhage or hemorrhagic conversion within the brain. 4. No parenchymal masses or suspicious enhancement. 5. Moderate maxillary sinus disease. BRAIN MR ANGIOGRAM: 1. There appears to be occlusion of one of the more of the posterior distal branches of the right middle cerebral artery, correlating with the large area of ischemia involving the right bolroasm-ppmzihpx-[id number] region. The main portion of the right middle cerebral artery is patent and the anterior branches of the right middle cerebral artery are also patent. 2. The posterior circulation is within normal limits. NECK MR ANGIOGRAM: 1. Nondiagnostic evaluation of the carotid arteries related to severe motion. No complete occlusions involving the vertebral arteries or carotid arteries are evident. However, this examination is nondiagnostic for evaluation of areas of narrowing, occlusion, or aneurysm. 2. Moderate-sized bilateral pleural effusions (right greater than left). The estimate of stenosis included in the report of the imaging study was calculated using the NASCET method Dictated by: Brendan Grimaldo M.D. on 10/22/2016 at 15:02 Cardiac Echo Impression Echocardiogram Report Interpretation Summary 1. Normal left ventricular size with mildly increased wall thickness and normal systolic function with an estimated EF of 60-65% 2. Normal right ventricular size and systolic function. The estimated RVSP is 24 mm Hg plus the right atrial pressure. 3. Mild to moderate aortic insufficiency There is no old study for comparison Brief History Per admission H&P: 61 year old female with History of breast cancer s/p mastectomy with post surgical RUE lymphedema who presents to [facility] Emergency department due to respiratory symptoms with elevated D dimer at Urgent Care clinic Two weeks ago the patient was seen at urgent care and was diagnosed with a sinus infection. She was started on antibiotics (Augmentin) and has had progressively worsening shortness of breathe since. Exacerbated with exertion and lifting heavy stuff. Pt was seen at urgent care today c/o multiple vague complaints including fatigue and dyspnea. Lab studies included D-dimer and BNP which were markedly elevated. Called at home and told to go to ER. She also complain of chest tightness with deep inspiration and calf edema. Additionally, she complains of intermittent purple discoloration of fingers and toes, not associated with cold weather. Pt recently started a job in a [employer], which reportedly is harder labor then her previous job, and had a 20 pound weight loss. Pt denies fever, chills, trauma, surgery, immobilization, estrogen replacement. Case discussed with Dr Cohn. Patient had CT confirming Pulmonary embolism. Imaging also confirmed metastatic cancer, new finding as the patient thought she was cancer free from her Breast Cancer. Patient was admitted and treated appropriately for her bilateral pulmonary emboli. She was seen in consultation by oncology and had additional laboratory and imaging studies to help elucidate the etiology of her coagulopathy and abnormality seen on initial imaging. She underwent a percutaneous liver biopsy in attempt to obtain tissue for definitive diagnosis. On 10/22/16 she developed visual disturbance and left-sided weakness and repeat CT scanning revealed evidence of right sided CVA. At this time she continues on heparin anticoagulation and other appropriate medical management, awaiting biopsy results. Palliative medicine was consulted to provide support and assist the patient and her son in determining goals of care. Prior to visiting the patient, I reviewed her records in the EMR in detail. Spoke with her bedside nurse and with her hospitalist. When I arrived, she is resting quietly in bed. Her son Neri is at bedside. She denies any significant distress- says that her dyspnea and chest pain present at time of admission have essentially resolved. She does note some mild left-sided weakness. She is slightly forgetful and confused- for example, she repeats several times that her biopsy was this morning (the weight was actually several days ago). We spoke at length, reviewing her presenting symptoms, initial diagnoses, evaluation to this point, and possibilities for future treatment. I answered questions that they had about her care to this point. Towards the end of our interview, when I asked if she had further questions, she said "why isn't life fair? Hospital Course Patient is a Right handed 62YOF with MHx significant for ETOH abuse and breast cancer 12yrs ago presented with weakness and exertional dyspnea, found and admitted for pulmonary embolism. Lower leg venous duplex showed extensive DVT of Left leg. Patient was anticoagulate with heparin drip, bridge to warfarin prior to discharge. Unfortunately, in addition to CT-angio showing PE on initial eval, also demonstrated enlarged mediasteinal lymph nodes and lytic lesion of vertebral body, compression fracture consistent with metastatic disease. Imaging of head and abdomen further define enlargement of spleen and nodular liver with traced ascites. A biopsy of liver was thus obtained. Heparin drip was stopped for the procedure and shortly after. During that interim, patient showered clots to brain with large right parietal/temporal/occipital watershed infarction. This has left patient with left side weakness and discoordination. Subsequent pathology reports ER+/HER-2 negative metastatic breast cancer. Oncologist Dr. Cruz engaged with patient, no to chemotherapy. Hormone juice, anastrozole is the most viable option. Malignancy is ultimately incurable. Palliative care consulted, patient hopeful, elect full code. Patient is discharged to [facility] nursing facility for further evaluation, PT/OT. She is discharged with anastrozole and warfarin and aspirin. INR will need to be closely monitor in the setting of liver cirrhosis. #. New right temporal parietal CVA , with partial visual loss and left-sided weakness on exam. Likely secondary to metastatic CA with evidence of disease in the calvarium and lytic lesions of the bone -MRI demonstrate multiple embolic strokes, largest is located parietal-temporal- occipital region. -Echocardiogram unremarkable. -ASA 81mg and atorvastatin added. - D/c to SNF for further rehab PT/OT #. Multiple bilateral pulmonary emboli involving lobar pulmonary arteries in the right upper, middle, and lower lobes as well as the left lower lobe with extension into segmental and subsegmental branches. Present on admission. NO indications for TPA as there was no e/o right heart strain on CT scan. Likely 2/ 2 Malignancy, with no recent travels, surgeries or contraceptives. No family history of thrombophilia. - Lower leg venous showed significant left leg DVT. - Originally anticoagulate with lovenox, changed to heparin drip for procedures , subsequently used to bridge warfarin - INR remains therapeutic today, Pharmacy managing dosing - D/c patient home on warfarin. - Will need to repeat INR Q2day. Patient has liver cirrhosis. - Recommend [id number] daily Per pharmacy #. Metastatic Breast Cancer. Present on admission. Based on findings in chest CT angiogram, patient was informed of likely metastatic disease to liver spleen bones and lymph nodes. Subsequent abdominal and imaging cast doubt on neoplastic disease of liver and spleen. Bone lesions seem to be a progression of prior findings observed on CT scan in 10/2015. Compression fracture of spine may be osteoporosis, for which the patient has a prior diagnosis. Adenopathy is of uncertain cause. -Oncology Dr. Leal following. Recommended anastrozole. Patient will be followed up out patient within the next 10days. #. Macrocytic anemia with Leukopenia. Present on admission. Consider alcohol bone marrow toxicity versus myelocystic disease. - Iron studies Vitamin B and Folate levels does not indicate deficiency - Hematology/oncology consult appreciated #. Probable cirrhosis. Based on hepatic imaging. History is positive for regular consumption of 2-3 alcohol drinks per day per patient. No prior clinical diagnosis diagnosis. - Follow CMP periodically - Discussed alcohol cessation with patient the patient admits to drinking at least 2 hard on alcohol beverages per day. - Plan referral for appropriate hepatic follow-up, depending on overall health picture #. Elevated transaminitis. AST 203, ALT 143 on admission. Hepatic imaging suggests cirrhosis but possibly also nodular disease. - Hepatitis panel negative. LFT consistent with ETOH abuse and malignancy - Ascites noted, insufficient to tap. - Added spironolactone given increase acetics fluids. potential portal hypertension #. Abnormal thyroid function tests. Hypothyroidism versus euthyroid sick syndrome. Unclear whether this is symptomatic, in setting of multiple other medical issues. - Repeat tests with reverse T4 - Consider treatment as indicated #. Osteoporosis. With possible pathological fractures, possibly secondary to metastatic disease. - Plan to continue her chronic Fosamax therapy #. Depression - continue Prozac # Alcoholism - thiamine daily given in patient Exam Vital Signs (Last) Date Time Temp Pulse Resp B/P Pulse Ox O2 Delivery O2 Flow Rate FiO2 10/26/16 13:52 Room Air 10/26/16 13:00 36.6 109 20 164/74 92 Test 10/16/16 19:05 10/17/16 00:35 10/17/16 15:10 10/18/16 08:01 Reticulocyte Count,Calculated 3.3% (0.6-2.6) Iron Level 102ug/dL (35-150) Total Iron Binding Capacity 270ug/dL (250-450) Percent Iron Saturation 38%sat (15-50) Unsaturated Iron Binding 167.6ug/dL Ferritin 11042vo/mL (13-150) Troponin T < 0.010ug/L (0.0-0.011) Pro-B-Type Natriuretic Peptide 686.2pg/mL (0-287) Vitamin B12 Level >1999pg/mL (211-946) Folate 9.8ng/mL (>3.0) Hepatitis A IgM Antibody Negative (Negative) Hepatitis B Surface Antigen Negative (Negative) Hepatitis B Core IgM Antibody Negative (Negative) Hepatitis C Antibody <0.1s/co ratio (0.0-0.9) Hepatitis C Comment Comment (.) Haptoglobin < 10mg/dL (34-200) Lactate Dehydrogenase 511U/L (100-190) Carcinoembryonic Antigen 3831.0ng/mL (0.0-4.7) CA 27.29 8381.2U/mL (0.0-38.6) Nucleated Red Blood Cells 1/100 WBC (0-24) Phosphorus Level 3.2mg/dL (2.5-4.9) Thyroid Stimulating Hormone (TSH) 12.880uIU/mL (0.450-4.500) Free Thyroxine 1.10ng/dL (0.82-1.77) Reverse Triiodothyronine (T3) 40ng/dL (9.2-24.1) Total Triiodothyronine 126ng/dL (71-180) Test 10/19/16 05:35 10/21/16 11:19 10/22/16 06:30 10/23/16 08:58 Magnesium Level 1.9mg/dL (1.6-2.6) Band Neutrophils % 3% (1-5) Hematology Comments Rbc Triglycerides Level 145mg/dL (0-149) Cholesterol Level 93mg/dL (100-199) LDL Cholesterol, Calculated 46.000mg/dL (0-99) VLDL Cholesterol 29.000mg/dL HDL Cholesterol 18mg/dL (>39) Cholesterol/HDL Ratio 5.17 (0.0-4.4) Test 10/24/16 06:00 10/24/16 11:30 10/25/16 11:35 10/26/16 06:00 White Blood Count 1.8th/mm3 (3.8-10.1) Red Blood Count 2.73mil/mm3 (3.90-5.20) Hemoglobin 9.9g/dL (12.0-15.6) Hematocrit 30.9% (35.0-46.0) Mean Corpuscular Volume 113.2fL (81-100) Mean Corpuscular Hemoglobin 36.3pg (27.0-35.0) Mean Corpuscular Hemoglobin Concent 32.0% (32.0-37.0) Red Cell Distribution Width 15.5% (12.3-15.4) Platelet Count 177bil/L (150-400) Neutrophils (%) (Auto) 75% (40-74) Lymphocytes (%) (Auto) 14% (14-46) Monocytes (%) (Auto) 10% (4-12) Eosinophils (%) (Auto) 1% (0-5) Basophils (%) (Auto) 0% (0-3) Sodium Level 136mEq/L (134-144) Potassium Level 4.7mEq/L (3.5-5.2) Chloride Level 99mEq/L (97-108) Carbon Dioxide Level 22mmol/L (18-29) Blood Urea Nitrogen 11mg/dL (8-27) Creatinine 0.72mg/dL (0.57-1.00) Estimat Glomerular Filtration Rate 118mL/min (>59) Glucose Level 86mg/dL (60-99) Calcium Level 9.4mg/dL (8.5-10.1) Total Bilirubin 1.5mg/dL (0.0-1.2) Aspartate Amino Transf (AST/SGOT) 248U/L (0-50) Alanine Aminotransferase (ALT/SGPT) 142U/L (0-32) Alkaline Phosphatase 113U/L (25-165) Total Protein 5.4g/dL (6.4-8.4) Albumin 2.4g/dL (3.4-5.0) Activated Partial Thromboplast Time 76.5sec (22.8-33.0) Hold Blue Top Tube Received (Received) Ammonia 69ug/dL (18-53) Prothrombin Time 39.5sec (8.1-12.5) Prothromb Time International Ratio 3.60ratio Discharge Medications Discharge Medications ([Warfarin per Pharmacist]) 1 EA EA 1 EA XX DAILY@17 Prescribed by: NAOMI ORDAZ DO Anastrozole (Arimidex) 1 Mg Tablet 1 MG PO DAILY Prescribed by: NAOMI ORDAZ DO Aspirin Chew (Aspirin Chew) 81 Mg Chew 81 MG PO DAILY Prescribed by: NAOMI ORDAZ DO Ondansetron (Ondansetron) 4 Mg Tablet 4 MG PO Q6H Prescribed by: NAOMI ORDAZ DO Pantoprazole DR (Protonix) 40 Mg Tablet 40 MG PO DAILY Prescribed by: NAOMI ORDAZ DO Spironolactone (Aldactone) 25 Mg Tablet 12.5 MG PO DAILY Prescribed by: NAOMI ORDAZ DO As needed Amitriptyline (Amitriptyline) 10 Mg Tablet 10 MG PO HS PRN PRN prn (Reported) Lorazepam (Lorazepam) 0.5 Mg Tablet 0.5 MG PO Q6H PRN PRN For Insomnia Prescribed by: NAOMI ORDAZ DO oxyCODONE (oxyCODONE) 5 Mg Tablet 5 MG PO Q4H PRN PRN For Moderate Pain Prescribed by: NAOMI ORDAZ DO Miscellaneous Medications Fluoxetine (Prozac) 10 Mg Capsule 10 MG PO (Reported) Additional med instructions Need INR before dose given 10/27/2016 Warfarin 1mg daily INR check Q2days Optimal rage INR 2-3 Recommend that Pharmacy dose your warfarin. You are at a very fragile state. You have liver cirrhosis. Followup Plan Discharge Activity: Other (In ) Patient Instructions For your hospitalization, you were admitted for pulmonary embolism ( clots in your lungs). In the process, we found evidence of metastatic disease. This was found to be a recurrent breast cancer. This is likely the reason for your clots as it can make your blood hypercoagulable. It is also likely this was the cause of your stroke. You will be follow by Oncologist Dr. Leal. Will need to make appt to see in in 10 days. Follow-up Provider: Fani Flanagan Time spent 45 minutes Attending Statement The patient was seen and examined together with Dr. Naomi Ordaz on 10/26/2016 and I agree with the history, exam and plan as outlined in the note above. copies to: Fani Flanagan Phuc H DO Oct 27, 2016 02:48 George Adamson MD Oct 27, 2016 13:34
--- NOTE | 2016-10-30 15:22 | NUR ---
Palliative care note D/A: Pt discharged to [facility] on 10/26/16. Faxed copy of pt DPOA today to facility. Pt has chosen Neri Deng as her primary decision maker and he can be reached at [phone]. She has chosen Ronni Nino as her secondary decision maker, reached at [phone]. Third decision maker is SAFIA Alvarez who can be reached at [phone]. P: No further need for palliative care to follow. Terri EVANS, CCM
== END 2016-10-26 18:01 | DRG 175 ==
LOC: SED 17:32 → PCC 10-17 00:29 → MPC 10-17 20:22 → UNDODISIN 10-19 17:28
PROVIDERS: ADMIT Hospitalist; ATTEND Hospitalist
PROC: 0F923ZX Drainage of Left Lobe Liver, Percutaneous Approach, Diagnostic (ICD-10-PCS; principal; 2016-10-20)
DX: I26.99 Other pulmonary embolism without acute cor pulmonale (principal); I63.511 Cerebral infarction due to unspecified occlusion or stenosis of right middle cerebral artery; M80.08XA Age-related osteoporosis with current pathological fracture, vertebra(e), initial encounter for fracture; C78.7 Secondary malignant neoplasm of liver and intrahepatic bile duct; C79.51 Secondary malignant neoplasm of bone; C50.911 Malignant neoplasm of unspecified site of right female breast; D53.9 Nutritional anemia, unspecified; F32.9 Major depressive disorder, single episode, unspecified; Z85.3 Personal history of malignant neoplasm of breast; Z51.5 Encounter for palliative care; K70.30 Alcoholic cirrhosis of liver without ascites; Z17.0 Estrogen receptor positive status [ER+]; F10.10 Alcohol abuse, uncomplicated